=== PATIENT | female | born 1970 | race Caucasian/White ===

== ENCOUNTER 2021-03-27 09:11 | Outpatient (REF) | payer OTHER, SELFPAY ==
--- NOTE | ~2021-03-27 | US_ITS ---
EXAMINATION: PELVIC ULTRASOUND CLINICAL INFORMATION: Vaginal bleeding. Previous history of endometrial ablation. COMPARISON: Previous pelvic ultrasound December 2019 TECHNIQUE: Transabdominal and transvaginal pelvic ultrasound was performed. Transvaginal exam was performed for better visualization of the uterus and ovaries. FINDINGS: The uterus is anteverted and measures 8.4 x 4.6 x 5.3 cm. There are 3 uterine fibroids seen measuring 1.3 x 1 x 1.1 cm in the right posterior upper uterine body, 1.1 x 0.9 1.1 cm in the posterior upper uterine body and 1.5 x 1.3 x 1.5 cm in the anterior uterine body. There is a cystic area in or adjacent to the endometrium that measures 2.3 x 1.2 x 1.4 cm. This is increased from 1 cm on prior exam. The endometrium thickness is difficult to measure. The cervix is normal appearing. The ovaries are normal. The right ovary measures 2.6 x 1.5 x 2.8 cm. The left ovary measures 3.1 x 1.4 x 2.5 cm. There is no fluid in the pelvis. US/US pelvic and transvaginal IMPRESSION: Small uterine fibroids. Interval increase in cystic area in or adjacent to the endometrium now measuring 2.3 x 1.2 x 1.4 cm compared to 1 cm on prior exam December 2019. The endometrium thickness is difficult to measure. Normal-appearing ovaries.
== END 2021-03-27 09:12 | disposition home or self-care (01) ==
LOC: HO.HMGCX 09:11
PROVIDERS: Visit Provider Internal Medicine
DX: N93.9 Abnormal uterine and vaginal bleeding, unspecified (principal)
CPT/HCPCS: 76830; 76856

== ENCOUNTER 2021-04-17 12:34 | Outpatient (REF) | payer OTHER, SELFPAY ==
--- NOTE | ~2021-04-17 | MM_ITS ---
EXAMINATION: MM SCREENING DIGITAL BREAST TOMOSYNTHESIS, BILATERAL CLINICAL INFORMATION: Screening. Asymptomatic. The lifetime risk of breast cancer based on the Tyrer-Cuzick Model is 16%. COMPARISON: Mammography: December 08, 2019 and studies dating back to May 26, 2013 TECHNIQUE: Digital breast tomosynthesis is performed in both the craniocaudal and mediolateral oblique views along with computer-aided detection (CAD). Synthesized 2D images are generated from the tomosynthesis. FINDINGS: The breasts are heterogeneously dense, which may obscure small masses (ACR BI-RADS breast composition Category c). There are no significant masses, abnormal calcifications, or other abnormalities. MM/MM tomosynthesis screening BI IMPRESSION: There are no significant changes from prior study. ASSESSMENT: BI-RADS 1: Negative RECOMMENDATION: Routine annual mammography screening. This patient's information was entered into a reminder system with a target due date for their next mammogram.
== END 2021-04-17 12:35 | disposition home or self-care (01) ==
LOC: HO.MAMMO 12:34
PROVIDERS: Visit Provider Internal Medicine
DX: Z12.31 Encounter for screening mammogram for malignant neoplasm of breast (principal)
CPT/HCPCS: 77063; 77067

== ENCOUNTER 2021-09-23 10:09 | Outpatient (REF) | payer OTHER, SELFPAY ==
[2021-09-23 10:12] LABS: MANUAL DIFF FLAG NO
[2021-09-23 10:33] LABS: Basophils Absolute Auto 0.1 X10*3/uL (0.0-0.2); Basophils Percent Auto 0.5 % (0-2); Eosinophils Absolute Auto 0.1 X10*3/uL (0.0-0.4); Eosinophils Percent Auto 1.4 % (0-4); Hemoglobin 13.5 g/dl (12.0-16.0); Imm Gran Abs Auto 0.04 X10*3/uL (0.00-0.03); Imm Gran Pct Auto 0.4 % (0.0-0.4); Lymphocytes Absolute Auto 3.8 X10*3/uL (1.2-4.9); Lymphocytes Percent Auto 41.2 % (20-40); Mean Corpuscular HGB Conc 33.8 g/dl (31.0-35.0); Mean Corpuscular Hemoglobin 29.3 pg (27.0-33.0); Mean Platelet Volume 8.8 fL (9.4-12.3); Monocytes Absolute Auto 0.6 X10*3/uL (0.1-1.2); Monocytes Percent Auto 6.8 % (2-11); Neutrophils Absolute Auto 4.6 x10*3/uL (2.0-8.3); Neutrophils Percent Auto 49.7 % (45-73); Platelet Count 278 X10*3/uL (160-400); Red Cell Distribution Width 12.4 % (11.0-16.0); White Blood Count 9.3 X10*3/uL (4.8-10.8)
[2021-09-23 10:37] LABS: Appearance Urine HAZY; Color Urine YELLOW; Glucose Urine UA NEG (NEG); Leukocyte Esterase Urine NEG (NEG); Nitrite Urine NEG (NEG); Urine Blood NEG (NEG); Urine Ketones NEG (NEG); Urine Protein NEG (NEG-TRACE)
[2021-09-23 10:45] LABS: Alanine Aminotransferase 30 U/L (0-31); Albumin Level 4.3 g/dL (3.5-5.0); Alkaline Phosphatase 108 U/L (39-117); Anion Gap 12 (12-20); Aspartate Amino Transferase 20 U/L (5-31); Bilirubin Total 0.6 mg/dL (0.0-1.0); Blood Urea Nitrogen 12 mg/dL (9-16); Calcium 9.6 mg/dL (8.4-10.2); Carbon Dioxide 25 mmol/L (22-29); Chloride 105 mmol/L (96-108); Cholesterol 216 mg/dL; Estimated Glomerular Filt Rate > 60; Glucose Fasting 154 mg/dL (60-99); HDL Cholesterol 52 mg/dL; LDL Cholesterol Calculated 135 mg/dl; Sodium 138 mmol/L (135-145); Total Protein 6.7 g/dL (6.5-8.0); Triglycerides 149 mg/dL
[2021-09-23 11:08] LABS: Creatinine Urine 106.99 mg/dL
[2021-09-23 11:11] LABS: Estimated Average Glucose 137 mg/dL; Hemoglobin A1c % 6.4 %
== END 2021-09-23 10:10 | disposition home or self-care (01) ==
LOC: HO.LNP 10:09
PROVIDERS: Visit Provider Internal Medicine
DX: Z00.00 Encounter for general adult medical examination without abnormal findings (principal); R73.03 Prediabetes; R09.89 Other specified symptoms and signs involving the circulatory and respiratory systems; D72.829 Elevated white blood cell count, unspecified
CPT/HCPCS: 80053; 80061; 81003; 82043; 83036; 85025

== ENCOUNTER 2022-04-30 08:39 | Outpatient (REF) | payer OTHER, SELFPAY ==
--- NOTE | ~2022-04-30 | MM_ITS ---
EXAMINATION: MM SCREENING DIGITAL BREAST TOMOSYNTHESIS, BILATERAL CLINICAL INFORMATION: Screening. Asymptomatic. The lifetime risk of breast cancer based on the Tyrer-Cuzick Model is 12%. COMPARISON: Mammography: 04/17/2021, 12/08/2019, 09/15/2018 TECHNIQUE: Digital breast tomosynthesis is performed in both the craniocaudal and mediolateral oblique views along with computer-aided detection (CAD). Synthesized 2D images are generated from the tomosynthesis. Additional left exaggerated CC view is provided. FINDINGS: There are scattered areas of fibroglandular density (ACR BI-RADS breast composition Category b). There are no significant masses, abnormal calcifications, or other abnormalities. Parenchymal pattern is similar to prior studies. There is no developing density or architectural abnormality. Biopsy clip marker again noted posterior upper outer left breast. The axilla and skin contours are unremarkable. No significant changes. MM/MM tomosynthesis screening BI IMPRESSION: No mammographic evidence of malignancy. ASSESSMENT: BI-RADS 1: Negative RECOMMENDATION: Routine annual mammography screening. This patient's information was entered into a reminder system with a target due date for their next mammogram.
== END 2022-04-30 08:40 | disposition home or self-care (01) ==
LOC: HO.MAMMO 08:39
PROVIDERS: Visit Provider Internal Medicine
DX: Z12.31 Encounter for screening mammogram for malignant neoplasm of breast (principal)
CPT/HCPCS: 77063; 77067

== ENCOUNTER 2022-08-07 14:39 | Emergency (ER) | payer OTHER, SELFPAY ==
--- NOTE | ~2022-08-07 | CT_ITS ---
EXAMINATION: CT ELBOW WITHOUT CONTRAST, LEFT CLINICAL INFORMATION: Effusion on x-ray. Evaluate for fracture COMPARISON: Same day radiographs TECHNIQUE: A noncontrast CT of the left elbow is performed with sagittal and coronal reformats This CT examination was performed using dose optimization techniques as appropriate, variously including the following: *Automated exposure control *Adjustment of mA and/or kV according to patient size (this includes techniques or standardized protocols for targeted exams where dose is matched to indication/reason for exam; i.e. extremities or head) *Use of iterative reconstruction technique DLP: 140 FINDINGS: There is a moderate joint effusion. No loose body. No fracture or malalignment is demonstrated. There is the area of surface irregularity and relative hypodensity at the central aspect of the humerus, at the lateral aspect of the ulnohumeral joint as demonstrated on sagittal image 52 which is likely degenerative. There is mild degenerative spurring of the coronoid process with tiny marginal osteophytes. Small degenerative cyst at the lateral aspect of the capitellum. CT/CT elbow LT wo IV con IMPRESSION: Moderate joint effusion with no definite fracture. Degenerative findings as described.
--- NOTE | ~2022-08-07 | XR_ITS ---
EXAMINATION: XR ELBOW, LEFT CLINICAL INFORMATION: Pain with limited range of motion COMPARISON: None TECHNIQUE: AP, lateral, and oblique views of the left elbow. FINDINGS: There is subtle elevation of the anterior and posterior fat pad, suggestive of a joint effusion at the elbow. There is no fracture seen. Joint spaces are maintained. The soft tissues appear otherwise unremarkable. XR/XR elbow LT min 3V IMPRESSION: There is a small elbow joint effusion. No fracture is seen, but the presence of joint effusion raises suspicion for a cold fracture. CT could be considered if clinically indicated.
[2022-08-07 15:26] VITALS: BP 195/84; PULSE 65; RESP 18; TEMP 37.2; O2SAT 97; BMI 33.0
--- NOTE | 2022-08-07 17:15 | ED_ITS ---
HPI - Extremity Problem General Chief complaint: Extremity Injury, Upper Stated complaint: possible hairline fracture in L arm Time Seen by Provider: 08/07/22 16:43 Source: patient Mode of arrival: ambulatory Limitations: no limitations History of Present Illness HPI Narrative: Patient presents emergency department for evaluation of left elbow pain. Reports onset 1-2 weeks ago. Does not recall a specific trauma to the area, denies a fall. However she did started new job and she is frequently lifting heavy boxes and moving them. The pain is made worse with heavy lifting and extension of the elbow. Pain is localized all throughout the elbow but also just superior and to the distal humerus. Denies numbness or tingling to the extremity. Denies any cold sensation. Denies rash, redness. Does report that there is localized swelling laterally. As trial Tylenol and ibuprofen with some improvement, as well as the use of a compression sleeve which does help the pain some. Related Data Previous Rx's Medication Instructions Recorded naproxen 500 mg tablet 500 mg PO BID PRN pain #14 tabs 08/07/22 Allergies Allergy/AdvReac Type Severity Reaction Status Date / Time Codeine Phosphate Allergy Unknown vomiting Unverified 03/16/19 00:00 codeine [Codeine] AdvReac Unknown NAUSEA & Unverified 07/04/20 14:50 VOMITING Review of Systems Review of Systems: Musculoskeletal: Positive left elbow pain as noted in HPI All other review of systems are unremarkable Yes all other systems are reviewed and are negative REPLACED BY [facility] Past Medical History Attestation statement: The following information was validated with the patient. Source: old records reviewed Social History Social History Advance Directives: No Advance Directives Information Provided: Yes Physical Exam Vital Signs: Vital Signs: Last Vital Signs Temp 98.9 F 08/07/22 15:26 Pulse 56 08/07/22 19:30 Resp 18 08/07/22 15:26 BP 136/80 08/07/22 19:30 Pulse Ox 97 08/07/22 15:26 O2 Del Method 08/07/22 15:26 BMI result Body Mass Index 33.0 Vital signs have been reviewed as normal and appeared to be correct. Blood pressure normal.? Heart rate normal.? Respiration rate normal. Temperature normal.? Oxygen saturation normal. Appearance: Alert.?Oriented to person, place and time. No acute distress.?Normal affect. Eyes: Pupils equal, round and reactive to light.? ENT: Pharynx normal.?? Neck: Normal inspection.? Neck supple.?? CVS: Heart sounds normal. Normal heart rate and rhythm.? Pulses normal.?? Respiratory: No respiratory distress.? Lung sounds clear to auscultation bilaterally?? Abdomen: Soft and non-tender. Normoactive bowel sounds. Skin: Skin warm and dry.? Normal skin color.? Extremities: No lower extremity edema. Palpable 2+ radial pulse bilaterally. Left elbow with localized swelling laterally, has tenderness upon palpation, no erythema, warmth, rash, no evidence of bursitis, no obvious deformity. Neuro: Moves all extremities spontaneously. Sensation intact bilaterally. No focal neuro deficits. Ambulates with normal steady gait. Course Course Course Narrative: Patient is a 51-year-old female with a past medical history of glucose intolerance presenting to emergency department for evaluation of left elbow pain. She is overall well-appearing. There is mild localized swelling, otherwise no obvious deformities. Does not appear consistent with septic arthritis. XR reveals presence of a small joint effusion and raises suspicion for occult fracture, therefore will obtain CT for further evaluation of fracture. Patient noted to be hypertensive initially with blood pressure 195/84, asymptoimatic, denies any prior history of hypertension or elevated blood pressure readings, on repeat 136/80. Reevaluation(s) Reevaluation #1: CT reveals a moderate effusion without evidence of fracture and there are degenerative changes. Suspect her symptoms of pain are likely consistent to the effusion, discussed wound care for rest, ice, compression with Pritesh bandage, naproxen, avoidance of overuse. Reviewed worrisome signs and symptoms return back to emergency department for. All questions were answered, patient was discharged home in stable condition. Time: 20:28 MDM - Extremity (Nontraumatic) Medical Records Attestation: I reviewed the patient's medical records. Lab Data Attestation: I reviewed the patient's lab results. Imaging Data XR elbow: Radiologist's impression: XR/XR elbow LT min 3V IMPRESSION: There is a small elbow joint effusion. No fracture is seen, but the presence of joint effusion raises suspicion for a cold fracture. CT could be considered if clinically indicated. CT elbow: Radiologist's impression: CT/CT elbow LT wo IV con IMPRESSION: Moderate joint effusion with no definite fracture. Degenerative findings as described.? Discharge Plan Discharge Clinical Impression: Effusion of elbow joint, left Patient Disposition: Home, Self-Care Instructions: R.I.C.E. Treatment (ED), Swollen Joint (ED) Additional Instructions: X-ray and CT show no evidence of a fracture. Be sure to rest, apply ice/heat, Pritesh bandage for compression or compression sleeve, elevate the arm when possible. You have been given a new prescription for naproxen an anti-inflammatory to take twice daily. Take this with food to prevent stomach upset. Do not take additional [id number] ibuprofen/Motrin/Aleve/Advil/aspirin while taking this medication. You can take Tylenol 500 mg, 2 tablets (1,000mg) every 4-6 hours as needed for pain, but not to exceed 3 doses daily (3,000mg). Follow up with her primary care provider as needed. Return to emergency department any new or worsening symptoms or concerns. ? Prescriptions: New naproxen 500 mg tablet 500 mg PO BID PRN (Reason: pain) Qty: 14 0RF Interventions: ED Discharge Assessment Last Done: 08/07/22 20:52 Discharge Date/Time: 08/07/22 20:54
[2022-08-07 19:30] VITALS: BP 136/80; PULSE 56
== END 2022-08-07 20:54 | disposition home or self-care (01) ==
PROVIDERS: Emergency Provider Emergency Medicine; PCP Internal Medicine
DX: M25.422 Effusion, left elbow (principal); M25.522 Pain in left elbow
CPT/HCPCS: 73080; 73200; 99282; 99284

== ENCOUNTER 2022-10-08 11:03 | Outpatient (REF) | payer BC, MEDICAID, SELFPAY ==
[2022-10-08 11:06] LABS: MANUAL DIFF FLAG NO
[2022-10-08 11:44] LABS: Basophils Percent Auto 0.5 % (0-2); Eosinophils Absolute Auto 0.2 X10*3/uL (0.0-0.4); Eosinophils Percent Auto 2.5 % (0-4); Hematocrit 40.8 % (37.0-47.0); Hemoglobin 13.7 g/dl (12.0-16.0); Imm Gran Abs Auto 0.01 X10*3/uL (0.00-0.03); Imm Gran Pct Auto 0.2 % (0.0-0.4); Lymphocytes Absolute Auto 2.8 X10*3/uL (1.2-4.9); Lymphocytes Percent Auto 42.9 % (20-40); Mean Corpuscular HGB Conc 33.6 g/dl (31.0-35.0); Mean Corpuscular Hemoglobin 29.3 pg (27.0-33.0); Mean Corpuscular Volume 87.4 fL (80.0-98.0); Mean Platelet Volume 8.8 fL (9.4-12.3); Monocytes Absolute Auto 0.4 X10*3/uL (0.1-1.2); Monocytes Percent Auto 6.7 % (2-11); Neutrophils Absolute Auto 3.1 x10*3/uL (2.0-8.3); Neutrophils Percent Auto 47.2 % (45-73); Platelet Count 273 X10*3/uL (160-400); Red Blood Count 4.67 X10*6/uL (4.20-5.50); Red Cell Distribution Width 12.5 % (11.0-16.0); White Blood Count 6.5 X10*3/uL (4.8-10.8)
[2022-10-08 11:46] LABS: Appearance Urine Clear; Color Urine Yellow; Glucose Urine UA Negative (Negative); Leukocyte Esterase Urine Trace (Negative); Nitrite Urine Negative (Negative); Specific Gravity - Urine 1.015 (1.005-1.025); UMIC TRIGGER UA YES; Urine Blood Negative (Negative); Urine Ketones Negative (Negative); Urine Protein Negative (Neg-Trace)
[2022-10-08 11:50] LABS: Bacteria Urine Trace (None Seen); Hyaline Casts Urine 0-2 /LPF (0-2); RBC Urine 0-2 /HPF (0-2); WBC Urine 0-5 /HPF (0-5)
[2022-10-08 11:55] LABS: Estimated Average Glucose 131 mg/dL; Hemoglobin A1c % 6.2 %
[2022-10-08 12:00] LABS: Alanine Aminotransferase 22 U/L (0-31); Albumin Level 4.4 g/dL (3.5-5.0); Alkaline Phosphatase 119 U/L (39-117); Anion Gap 11 (12-20); Aspartate Amino Transferase 20 U/L (5-31); Bilirubin Total 0.5 mg/dL (0.0-1.0); Blood Urea Nitrogen 18 mg/dL (9-16); Calcium 9.5 mg/dL (8.4-10.2); Carbon Dioxide 26 mmol/L (22-29); Chloride 107 mmol/L (96-108); Cholesterol 207 mg/dL; Estimated Glomerular Filt Rate > 60; Glucose Fasting 150 mg/dL (60-99); HDL Cholesterol 51 mg/dL; LDL Cholesterol Calculated 127 mg/dl; Potassium 4.4 mmol/L (3.3-5.1); Sodium 140 mmol/L (135-145); Total Protein 6.8 g/dL (6.5-8.0); Triglycerides 146 mg/dL
[2022-10-08 12:54] LABS: Microalbum/Creatinine Ratio Ur 19.3 ug/mg cr
== END 2022-10-08 11:04 | disposition home or self-care (01) ==
LOC: HO.LNP 11:03
PROVIDERS: Visit Provider Internal Medicine
DX: Z00.00 Encounter for general adult medical examination without abnormal findings (principal); D72.829 Elevated white blood cell count, unspecified; E11.9 Type 2 diabetes mellitus without complications
CPT/HCPCS: 80053; 80061; 81001; 82043; 83036; 85025

== ENCOUNTER 2023-01-29 11:44 | Emergency (ER) | payer BC, MEDICAID, SELFPAY ==
--- NOTE | 2023-01-29 | ECG_ITS ---
Test Reason : CP Blood Pressure : / mmHG Vent. Rate : 071 BPM Atrial Rate : 071 BPM P-R Int : 148 ms QRS Dur : 098 ms QT Int : 398 ms P-R-T Axes : 056 062 045 degrees QTc Int : 432 ms Normal sinus rhythm Incomplete right bundle branch block Borderline ECG No previous ECGs available Referred By: Generic ED Physician Electronically Signed By:KARINA NICHOLSON MD
--- NOTE | ~2023-01-29 | CT_ITS ---
EXAMINATION: CT ANGIOGRAM OF THE CHEST WITH AND WITHOUT CONTRAST (CT PULMONARY ANGIOGRAM FOR PE) CLINICAL INFORMATION: Reason for Exam + dimer cp sob COMPARISON: No similar priors. TECHNIQUE: Prior to contrast administration, noncontrast localization images were obtained. Subsequently, multidetector volumetric imaging was performed from the thoracic inlet to below the diaphragms following the administration of 65 mL Omnipaque 350 intravenous contrast. No contrast reaction reported Sagittal, coronal, and MIP oblique sagittal reformatted images were obtained on the CT workstation, uploaded to PACS, and reviewed. This CT examination was performed using dose optimization techniques as appropriate, variously including the following: *Automated exposure control *Adjustment of mA and/or kV according to patient size (this includes techniques or standardized protocols for targeted exams where dose is matched to indication/reason for exam; i.e. extremities or head) *Use of iterative reconstruction technique Total exam dose-length product 280 mGy-cm FINDINGS: QUALITY OF STUDY/CONTRAST BOLUS: Satisfactory. PULMONARY ARTERIES: No pulmonary emboli. THORACIC AORTA: No aneurysm. LUNG: No focal consolidation or significant groundglass disease. Mild diffuse bronchial wall thickening. Bibasilar subsegmental atelectases. No suspicious pulmonary nodule or mass. PLEURA: No pleural effusion or pneumothorax. MEDIASTINUM: Normal heart size. No pericardial effusion. No hilar or mediastinal lymphadenopathy. No evidence of septal bowing or right heart strain. CORONARY ARTERY CALCIFICATION: Coronary artery calcifications are visualized. CHEST WALL/AXILLA: Nonspecific 1.3 cm nodule in the left breast with an associated calcification versus clip (5:18). Fairly symmetric subcentimeter short axis bilateral axillary lymph nodes, likely reactive. OSSEOUS STRUCTURES: No acute or suspicious osseous abnormality. UPPER ABDOMEN: Unremarkable. No reflux of contrast into the hepatic veins to suggest elevated right heart pressures. CT/CT angio chest PE protocol IMPRESSION: 1. No evidence of pulmonary embolism. 2. Mild diffuse bronchial wall thickening which is nonspecific and could be associated with asthma, bronchitis or reactive airways disease. 3. No focal consolidation or significant groundglass disease. 4. Nonspecific 1.3 cm nodule in the left breast with an associated calcification versus clip. If the patient is due, correlation with a mammogram is recommended. VTE: negative
--- NOTE | ~2023-01-29 | XR_ITS ---
EXAMINATION: XR CHEST CLINICAL INFORMATION: Shortness of breath COMPARISON: None available. TECHNIQUE: 2 views of the chest were obtained. FINDINGS: No significant abnormality is noted involving the heart, lungs, mediastinum, bony thorax or soft tissues. Mild degenerative changes of the spine. XR/XR chest 2V IMPRESSION: No evidence for acute disease in the chest.
[2023-01-29 12:08] LABS: MANUAL DIFF FLAG NO
[2023-01-29 12:09] VITALS: BP 151/103; PULSE 73; RESP 18; TEMP 36.1; O2SAT 97; BMI 34.2
[2023-01-29 12:10] LABS: Basophils Percent Auto 0.5 % (0-2); Eosinophils Absolute Auto 0.2 X10*3/uL (0.0-0.4); Eosinophils Percent Auto 3.5 % (0-4); Hematocrit 38.1 % (37.0-47.0); Hemoglobin 12.9 g/dl (12.0-16.0); Imm Gran Abs Auto 0.03 X10*3/uL (0.00-0.03); Imm Gran Pct Auto 0.5 % (0.0-0.4); Lymphocytes Absolute Auto 2.1 X10*3/uL (1.2-4.9); Lymphocytes Percent Auto 35.3 % (20-40); Mean Corpuscular HGB Conc 33.9 g/dl (31.0-35.0); Mean Corpuscular Hemoglobin 29.5 pg (27.0-33.0); Mean Platelet Volume 8.6 fL (9.4-12.3); Monocytes Absolute Auto 0.4 X10*3/uL (0.1-1.2); Monocytes Percent Auto 6.8 % (2-11); Neutrophils Absolute Auto 3.2 x10*3/uL (2.0-8.3); Neutrophils Percent Auto 53.4 % (45-73); Platelet Count 208 X10*3/uL (160-400); Red Blood Count 4.38 X10*6/uL (4.20-5.50)
--- NOTE | 2023-01-29 12:11 | ED_ITS ---
HPI - General Adult General Chief complaint: Chest Pain <SVITLANA Bueno - Last Filed: 01/29/23 12:49> Stated complaint: Chest Pain <SVITLANA Bueno - Last Filed: 01/29/23 12:49> Time Seen by Provider: 01/29/23 19:28 <SVITLANA Bueno - Last Filed: 01/29/23 12:49> Source: patient <SVTILANA Torres - Last Filed: 01/29/23 23:09> Mode of arrival: ambulatory <SVITLANA Torres - Last Filed: 01/29/23 23:09> Limitations: no limitations <SVITLANA Torres Last Filed: 01/29/23 23:09> History of Present Illness HPI narrative: This is a 52-year-old female former smoker presenting to the emergency department complaints of left-sided chest pain and pain under left breast particularly with deep breathing since this morning at approximately 07:00. Patient tells me she feels a sharp pain behind her left breast every time she takes a deep breath. Denies trauma to the area. No history of PE or DVT, not on anticoagulant, not on hormone replacement therapy, denies long travel, no history of hypercoagulable disorders. Denies nausea, vomiting, cough, headache, vision changes, dizziness, abdominal pain. <SVITLANA Torres - Last Filed: 01/29/23 23:09> Related Data Home medications: Previous Rx's Medication Instructions Recorded naproxen 500 mg tablet 500 mg PO BID PRN pain #14 tabs 08/07/22 albuterol sulfate 90 mcg/actuation 2 inh inhalation Q4-6H PRN 01/29/23 breath activated powder inhaler shortness of breath #1 ea ketorolac 10 mg tablet 10 mg PO TID PRN pain 5 days #15 01/29/23 tabs prednisone 20 mg tablet 40 mg PO DAILY 5 days #10 tabs 01/29/23 <SVITLANA Bueno - Last Filed: 01/29/23 12:49> Allergies/adverse reactions: Allergies Allergy/AdvReac Type Severity Reaction Status Date / Time Codeine Phosphate Allergy Unknown vomiting Unverified 03/16/19 00:00 codeine [Codeine] AdvReac Unknown NAUSEA & Unverified 07/04/20 14:50 VOMITING <SVITLANA Bueno - Last Filed: 01/29/23 12:49> Review of Systems Review of Systems: Constitutional : No Weight loss, No Fever, No Chills, No Fatigue, No Malaise ENT/Mouth : No sore throat, No Rhinorrhea Eyes: No Eye Pain, No Swelling, No Redness Cardiovascular : + Chest Pain, + SOB, No Dyspnea on Exertion, No Orthopnea, No Edema, No Palpitations Respiratory : No Cough, No Sputum, No Wheezing Gastrointestinal : No Nausea, No Vomiting, No Diarrhea, No Constipation, No abdominal Pain, No Hematochezia, No Melena Genitourinary : No Dysuria, No Urinary Frequency, No Hematuria, Musculoskeletal : No joint pain, No Myalgias, No Joint Swelling Skin : No Skin Lesions, No rash Neuro : No Weakness, No Numbness, No Dizziness, No Headache Psych : No Anxiety/Panic, No Depression All other systems reviewed and are negative <SVITLANA Torres - Last Filed: 01/29/23 23:09> Yes all other systems are reviewed and are negative <SVITLANA Torres - Last Filed: 01/29/23 23:09> [facility] Past Medical History Attestation statement: The following information was validated with the patient. <SVITLANA Torres - Last Filed: 01/29/23 23:09> Source: old records reviewed and nursing notes reviewed <SVITLANA Torres - Last Filed: 01/29/23 23:09> Social History Social History: Social History Advance Directives: Yes Advance Directives Information Provided: Yes Advance Directives on File: No <SVITLANA Bueno Last Filed: 01/29/23 12:49> Physical Exam ED Vital Signs: Vital Signs - 24 hr 01/29/23 12:09 01/29/23 15:14 01/29/23 19:33 Temperature 97.0 F 97.9 F Pulse Rate 73 69 68 Respiratory Rate 18 18 14 Blood Pressure 151/103 H 178/100 H 178/88 H Pulse Oximetry 97 97 99 Oxygen Delivery Method Room Air Room Air Room Air 01/29/23 21:24 Temperature 97.8 F Pulse Rate 59 Respiratory Rate 18 Blood Pressure 161/94 H Pulse Oximetry 99 Oxygen Delivery Method Room Air BMI result Body Mass Index 34.2 <SVITLANA Bueno - Last Filed: 01/29/23 12:49> Vital Signs - 24 hr 01/29/23 12:09 01/29/23 15:14 01/29/23 19:33 Temperature 97.0 F 97.9 F Pulse Rate 73 69 68 Respiratory Rate 18 18 14 Blood Pressure 151/103 H 178/100 H 178/88 H Pulse Oximetry 97 97 99 Oxygen Delivery Method Room Air Room Air Room Air 01/29/23 21:24 Temperature 97.8 F Pulse Rate 59 Respiratory Rate 18 Blood Pressure 161/94 H Pulse Oximetry 99 Oxygen Delivery Method Room Air BMI result Body Mass Index 34.2 vss <SVITLANA Torres - Last Filed: 01/29/23 23:09> Appearance: Alert.? Oriented X3.? No acute distress.? Head: Normocephalic, atraumatic, no step-offs or deformities Eyes: Pupils equal, round and reactive to light.? ENT: Pharynx normal.? Neck: Normal inspection.? Neck supple.? CVS: Normal heart rate and rhythm.? Pulses normal.? Respiratory: No respiratory distress.? Breath sounds normal.? Abdomen: Soft and nontender.? Skin: Skin warm and dry.? Normal skin color.? Normal skin turgor.? Extremities: No lower extremity edema.? No calf ttp, negative ollie b/l 5/5 strength to bilateral upper and lower extremities Neuro: Oriented X 3.? No motor deficit.? No sensory deficit. CN 2-12 intact <SVITLANA Torres - Last Filed: 01/29/23 23:09> Course Course Course Narrative: RME performed by Mary Cristobal PA-C. Patient is a 52 year old assigned female at presenting to the emergency department with chest pain started at 8AM today. Patient states she has a history of asthma, has used her inhaler this morning with minimal relieve. Patient states she has been experiencing a lot of stress at home. Labs ordered. Patient placed back in the waiting room pending room availability and results. <SVITLANA Bueno Last Filed: 01/29/23 12:49> Reevaluation(s) Reevaluation #1: CBC within normal limits. Chemistry with no acute findings requiring intervention, patient's troponin negative x2, EKG nonischemic. D-dimer was slightly elevated 356 CTA pending. Chest x-ray no evidence of acute disease in the chest. <SVITLANA Torres - Last Filed: 01/29/23 23:09> Time: 21:20 <SVITLANA Torres - Last Filed: 01/29/23 23:09> Reevaluation #2: Upon reevaluation patient reports pain is much improved. CT of the chest with no evidence of PE. Mild diffuse with bronchial wall thickening which is nonspecific and could be associated with asthma, bronchitis, more likely asthma, patient does not have a cough. No focal consolidation or ground-glass disease. Patient is noted to have a 1.3 cm nodule in the left breast with an associated calcification versus clip. Educated patient on this. Will have her follow-up with OBGYN and PCP. Will discharge home on prednisone, albuterol and Toradol. Educated patient on diagnosis and treatment plan, answered all question, patient verbalizes understanding. At this time patient will be discharged home, advised to return with new or worsening symptoms. Educated on worrisome signs and symptoms and when to return. At this time I feel comfortable discharge home. <SVITLANA Torres - Last Filed: 01/29/23 23:09> Time: 23:07 <SVITLANA Torres - Last Filed: 01/29/23 23:09> Medications Administered Discontinued Medications Generic Name Dose Route Start Last Admin Trade Name Armando PRN Reason Stop Dose Admin Iohexol 100 ml 01/29/23 21:07 01/29/23 21:08 Iohexol 350 Mg/Ml 100 Ml Infus..Btl IV 01/29/23 21:08 65 ml ONCE ONE Administration Ketorolac Tromethamine 30 mg 01/29/23 21:19 01/29/23 21:27 Ketorolac Tromethamine 15 Mg/Ml Vial IVPUSH 01/29/23 21:20 30 mg ONCE ONE Administration <SVITLANA Bueno - Last Filed: 01/29/23 12:49> Medications Administered Discontinued Medications Generic Name Dose Route Start Last Admin Trade Name Armando PRN Reason Stop Dose Admin Iohexol 100 ml 01/29/23 21:07 01/29/23 21:08 Iohexol 350 Mg/Ml 100 Ml Infus..Btl IV 01/29/23 21:08 65 ml ONCE ONE Administration Ketorolac Tromethamine 30 mg 01/29/23 21:19 01/29/23 21:27 Ketorolac Tromethamine 15 Mg/Ml Vial IVPUSH 01/29/23 21:20 30 mg ONCE ONE Administration <SVITLANA Torres - Last Filed: 01/29/23 23:09> Medical Decision Making Medical Decision Making MDM Narrative: 2100 52-year-old female presents with pleuritic chest pain since this morning. Physical exam benign. This could be musculoskeletal in nature versus PE. Unlikely ACS, CHF for pneumonia. No signs of flail chest or pneumothorax. Plan at this time labs, imaging, D-dimer, troponin EKG. Will give Toradol for discomfort <SVITLANA Torres - Last Filed: 01/29/23 23:09> Differential Diagnosis Differential Diagnoses: The differential diagnosis associated with the presentation includes <SVITLANA Torres - Last Filed: 01/29/23 23:09> This could be musculoskeletal in nature versus PE. Unlikely ACS, CHF for pneumonia. No signs of flail chest or pneumothorax. <SVITLANA Torres - Last Filed: 01/29/23 23:09> Lab Data MDM Lab Attestation statement: I reviewed the patient's lab results. <SVITLANA Torres - Last Filed: 01/29/23 23:09> Result Diagrams: 01/29/23 12:05 01/29/23 12:05 <SVITLANA Bueno - Last Filed: 01/29/23 12:49> Labs: Lab Results 01/29/23 01/29/23 01/29/23 Range/Units 12:05 12:05 12:05 WBC 6.0 (4.8-10.8) X10*3/uL RBC 4.38 (4.20-5.50) X10*6/uL Hgb 12.9 (12.0-16.0) g/dl Hct 38.1 (37.0-47.0) % MCV 87.0 (80.0-98.0) fL MCH 29.5 (27.0-33.0) pg MCHC 33.9 (31.0-35.0) g/dl RDW 12.0 (11.0-16.0) % Plt Count 208 (160-400) X10*3/uL MPV 8.6 L (9.4-12.3) fL Immature Gran % (Auto) 0.5 H (0.0-0.4) % Neut % (Auto) 53.4 (45-73) % Lymph % (Auto) 35.3 (20-40) % [place] % (Auto) 6.8 (2-11) % Eos % (Auto) 3.5 (0-4) % Baso % (Auto) 0.5 (0-2) % Lymph # (Auto) 2.1 (1.2-4.9) X10*3/uL [place] # (Auto) 0.4 (0.1-1.2) X10*3/uL Eos # (Auto) 0.2 (0.0-0.4) X10*3/uL Baso # (Auto) 0.0 (0.0-0.2) X10*3/uL Abs Immat Gran (auto) 0.03 (0.00-0.03) X10*3/uL Absolute Neuts (auto) 3.2 (2.0-8.3) x10*3/uL Absolute Nucleated RBC 0.000 (0.0-0.012) X10*3/uL Nucleated RBC % (auto) 0.0 (0.0-0.2) /100WBC D-Dimer High Sensitivty NG/ML Sodium 139 (135-145) mmol/L Potassium 4.0 (3.3-5.1) mmol/L Chloride 108 (96-108) mmol/L Carbon Dioxide 22 (22-29) mmol/L Anion Gap 13 (12-20) BUN 14 (9-16) mg/dL Creatinine 0.75 (0.5-1.4) mg/dL Estim Creat Clear Calc 88.6 Estimated GFR > 60 Random Glucose 292 H (60-115) mg/dL Calcium 9.3 (8.4-10.2) mg/dL Troponin I High Sens < 2.7 (<3.5-17.0) ng/L 01/29/23 01/29/23 Range/Units 19:42 19:42 WBC (4.8-10.8) X10*3/uL RBC (4.20-5.50) X10*6/uL Hgb (12.0-16.0) g/dl Hct (37.0-47.0) % MCV (80.0-98.0) fL MCH (27.0-33.0) pg MCHC (31.0-35.0) g/dl RDW (11.0-16.0) % Plt Count (160-400) X10*3/uL MPV (9.4-12.3) fL Immature Gran % (Auto) (0.0-0.4) % Neut % (Auto) (45-73) % Lymph % (Auto) (20-40) % [place] % (Auto) (2-11) % Eos % (Auto) (0-4) % Baso % (Auto) (0-2) % Lymph # (Auto) (1.2-4.9) X10*3/uL [place] # (Auto) (0.1-1.2) X10*3/uL Eos # (Auto) (0.0-0.4) X10*3/uL Baso # (Auto) (0.0-0.2) X10*3/uL Abs Immat Gran (auto) (0.00-0.03) X10*3/uL Absolute Neuts (auto) (2.0-8.3) x10*3/uL Absolute Nucleated RBC (0.0-0.012) X10*3/uL Nucleated RBC % (auto) (0.0-0.2) /100WBC D-Dimer High Sensitivty 356 NG/ML Sodium (135-145) mmol/L Potassium (3.3-5.1) mmol/L Chloride (96-108) mmol/L Carbon Dioxide (22-29) mmol/L Anion Gap (12-20) BUN (9-16) mg/dL Creatinine (0.5-1.4) mg/dL Estim Creat Clear Calc Estimated GFR Random Glucose (60-115) mg/dL Calcium (8.4-10.2) mg/dL Troponin I High Sens < 2.7 (<3.5-17.0) ng/L <SVITLANA Bueno - Last Filed: 01/29/23 12:49> Lab Results 01/29/23 01/29/23 01/29/23 Range/Units 12:05 12:05 12:05 WBC 6.0 (4.8-10.8) X10*3/uL RBC 4.38 (4.20-5.50) X10*6/uL Hgb 12.9 (12.0-16.0) g/dl Hct 38.1 (37.0-47.0) % MCV 87.0 (80.0-98.0) fL MCH 29.5 (27.0-33.0) pg MCHC 33.9 (31.0-35.0) g/dl RDW 12.0 (11.0-16.0) % Plt Count 208 (160-400) X10*3/uL MPV 8.6 L (9.4-12.3) fL Immature Gran % (Auto) 0.5 H (0.0-0.4) % Neut % (Auto) 53.4 (45-73) % Lymph % (Auto) 35.3 (20-40) % [place] % (Auto) 6.8 (2-11) % Eos % (Auto) 3.5 (0-4) % Baso % (Auto) 0.5 (0-2) % Lymph # (Auto) 2.1 (1.2-4.9) X10*3/uL [place] # (Auto) 0.4 (0.1-1.2) X10*3/uL Eos # (Auto) 0.2 (0.0-0.4) X10*3/uL Baso # (Auto) 0.0 (0.0-0.2) X10*3/uL Abs Immat Gran (auto) 0.03 (0.00-0.03) X10*3/uL Absolute Neuts (auto) 3.2 (2.0-8.3) x10*3/uL Absolute Nucleated RBC 0.000 (0.0-0.012) X10*3/uL Nucleated RBC % (auto) 0.0 (0.0-0.2) /100WBC D-Dimer High Sensitivty NG/ML Sodium 139 (135-145) mmol/L Potassium 4.0 (3.3-5.1) mmol/L Chloride 108 (96-108) mmol/L Carbon Dioxide 22 (22-29) mmol/L Anion Gap 13 (12-20) BUN 14 (9-16) mg/dL Creatinine 0.75 (0.5-1.4) mg/dL Estim Creat Clear Calc 88.6 Estimated GFR > 60 Random Glucose 292 H (60-115) mg/dL Calcium 9.3 (8.4-10.2) mg/dL Troponin I High Sens < 2.7 (<3.5-17.0) ng/L 01/29/23 01/29/23 Range/Units 19:42 19:42 WBC (4.8-10.8) X10*3/uL RBC (4.20-5.50) X10*6/uL Hgb (12.0-16.0) g/dl Hct (37.0-47.0) % MCV (80.0-98.0) fL MCH (27.0-33.0) pg MCHC (31.0-35.0) g/dl RDW (11.0-16.0) % Plt Count (160-400) X10*3/uL MPV (9.4-12.3) fL Immature Gran % (Auto) (0.0-0.4) % Neut % (Auto) (45-73) % Lymph % (Auto) (20-40) % [place] % (Auto) (2-11) % Eos % (Auto) (0-4) % Baso % (Auto) (0-2) % Lymph # (Auto) (1.2-4.9) X10*3/uL [place] # (Auto) (0.1-1.2) X10*3/uL Eos # (Auto) (0.0-0.4) X10*3/uL Baso # (Auto) (0.0-0.2) X10*3/uL Abs Immat Gran (auto) (0.00-0.03) X10*3/uL Absolute Neuts (auto) (2.0-8.3) x10*3/uL Absolute Nucleated RBC (0.0-0.012) X10*3/uL Nucleated RBC % (auto) (0.0-0.2) /100WBC D-Dimer High Sensitivty 356 NG/ML Sodium (135-145) mmol/L Potassium (3.3-5.1) mmol/L Chloride (96-108) mmol/L Carbon Dioxide (22-29) mmol/L Anion Gap (12-20) BUN (9-16) mg/dL Creatinine (0.5-1.4) mg/dL Estim Creat Clear Calc Estimated GFR Random Glucose (60-115) mg/dL Calcium (8.4-10.2) mg/dL Troponin I High Sens < 2.7 (<3.5-17.0) ng/L <SVITLANA Torres - Last Filed: 01/29/23 23:09> Independent Interpretation I performed an independent interpretation of an: Plain X-Ray (XR/XR chest 2V IMPRESSION: No evidence for acute disease in the chest.) and CT Scan (CT/CT angio chest PE protocol IMPRESSION: 1. No evidence of pulmonary embolism. 2. Mild diffuse bronchial wall thickening which is nonspecific and could be associated with asthma, bronchitis or reactive airways disease. 3. No focal consolidation or significant groundglass disease. 4. Nonspecific) <SVITLANA Torres - Last Filed: 01/29/23 23:09> Radiology Impression Discussion of test interpretation with radiology: I have reviewed the radiologist's reading. <SVITLANA Torres - Last Filed: 01/29/23 23:09> Core Measures AMI core measures followed: Yes <SVITLANA Torres - Last Filed: 01/29/23 23:09> Measure exclusions: not indicated <SVITLANA Torres - Last Filed: 01/29/23 23:09> Critical Care Time Critical Care Time Critical Care Time: No <SVITLANA Torres - Last Filed: 01/29/23 23:09> Discharge Plan Discharge Clinical Impression: Chest pain, pleuritic <SVITLANA Bueno - Last Filed: 01/29/23 12:49> Patient Disposition: Home, Self-Care <SVITLANA Bueno - Last Filed: 01/29/23 12:49> Instructions: Chest Pain (ED) <SVITLANA Bueno - Last Filed: 01/29/23 12:49> Additional Instructions: Take your medications as prescribed. If you were prescribed antibiotics today, it is important that you take your medication to their entirety, do not skip any doses, do not finish them early. Follow-up with your primary care provider this week. Follow-up with cardiology if pain persist and please follow up with with OBGYN and PCP for breast mass. Return to the emergency department with new or worsening symptoms. Such as fevers, chills, chest pain, shortness of breath, nausea, vomiting, dizziness, headache, vision changes, lethargy In case of emergency call 911 Toradol has been sent to your pharmacy, you tolerated this well in the department. Please take this as prescribed do not take this with ibuprofen, or other NSAIDs, do not mix this with alcohol. Side effects of this medication including increased risk for bleeding and possible kidney injury. CT/CT angio chest PE protocol IMPRESSION: 1.? No evidence of pulmonary embolism. 2.? Mild diffuse bronchial wall thickening which is nonspecific and could be associated with asthma, bronchitis or reactive airways disease. 3.? No focal consolidation or significant groundglass disease. 4.? Nonspecific 1.3 cm nodule in the left breast with an associated calcification versus clip. If the patient is due, correlation with a mammogram is recommended. ? VTE: negative <SVITLANA Bueno - Last Filed: 01/29/23 12:49> Prescriptions: New ketorolac 10 mg tablet 10 mg PO TID PRN (Reason: pain) 5 Days Qty: 15 0RF albuterol sulfate 90 mcg/actuation aerosol powdr breath activated 2 inh inhalation Q4-6H PRN (Reason: shortness of breath) Qty: 1 0RF prednisone 20 mg tablet 40 mg PO DAILY 5 Days Qty: 10 0RF No Action naproxen 500 mg tablet 500 mg PO BID PRN (Reason: pain) Qty: 14 0RF <SVITLANA Bueno - Last Filed: 01/29/23 12:49> Referrals: [facility] [place] [facility] [Provider Group] - 2 weeks [facility] [place] [facility] [place]Provider Group] - 2 days Ned Son MD [Primary Care Provider] - 2 days <SVITLANA Bueno - Last Filed: 01/29/23 12:49> Stand Alone Forms: Work/School Release <SVITLANA Bueno - Last Filed: 01/29/23 12:49>
[2023-01-29 12:37] LABS: Anion Gap 13 (12-20); Blood Urea Nitrogen 14 mg/dL (9-16); Calcium 9.3 mg/dL (8.4-10.2); Carbon Dioxide 22 mmol/L (22-29); Chloride 108 mmol/L (96-108); Creatinine Clr Calc Pharmacy 88.6; Estimated Glomerular Filt Rate > 60; Glucose Random 292 mg/dL (60-115); Sodium 139 mmol/L (135-145)
[2023-01-29 12:39] LABS: Troponin-I High Sensitivity < 2.7 ng/L (<3.5-17.0)
[2023-01-29 15:14] VITALS: BP 178/100; PULSE 69; RESP 18; O2SAT 97
[2023-01-29 19:33] VITALS: BP 178/88; PULSE 68; RESP 14; TEMP 36.6; O2SAT 99
[2023-01-29 20:03] LABS: D Dimer High Sensitivity 356 NG/ML
[2023-01-29 20:11] LABS: Troponin-I High Sensitivity < 2.7 ng/L (<3.5-17.0)
[2023-01-29] MEDS: iohexoL 350 MG/ML 100 ML INFUS..BTL IV (21:08)
[2023-01-29 21:24] VITALS: BP 161/94; PULSE 59; RESP 18; TEMP 36.6; O2SAT 99
[2023-01-29] MEDS: Ketorolac Tromethamine 15 MG/ML VIAL 30 MG IVPUSH (21:27)
[2023-01-29 23:19] VITALS: BP 147/92; PULSE 65; RESP 16; TEMP 36.6; O2SAT 97
== END 2023-01-29 23:24 | disposition home or self-care (01) ==
PROVIDERS: Physician Assistant; Emergency Provider Emergency Medicine; PCP Internal Medicine
DX: R07.89 Other chest pain (principal); Z79.899 Other long term (current) drug therapy
CPT/HCPCS: 36415; 71046; 71275; 80048; 84484; 85025; 85379; 93005; 96374; 99284; 99285; J1885; Q9967

== ENCOUNTER 2023-03-03 14:20 | Outpatient (REF) | payer BC, MEDICAID, SELFPAY ==
--- NOTE | ~2023-03-03 | MM_ITS ---
EXAMINATION: MM DIAGNOSTIC DIGITAL BREAST TOMOSYNTHESIS, BILATERAL CLINICAL INFORMATION: CTA chest notes nodule posterior upper outer left breast with central high attenuation focus. Family history breast cancer, mother. Due for yearly. TC score 15%. COMPARISON: CTA chest 01/29/2023. Multiple prior mammography exams including most recent 04/30/2022. TECHNIQUE: Digital breast tomosynthesis is performed in both the craniocaudal and mediolateral oblique views along with computer-aided detection (CAD). Synthesized 2D images are generated from the tomosynthesis. Additional spot left CC and magnification left ML views are obtained. FINDINGS: There are scattered areas of fibroglandular density (ACR BI-RADS breast composition Category b). There is a fibronodular parenchymal pattern similar to prior studies. There is no developing density or significant mass or architectural abnormality. The finding on CTA chest corresponds to biopsy-proven fibroadenoma with central biopsy clip marker in the posterior upper outer left breast, stable from prior exams. There are no abnormal calcifications. The axilla and skin contours are unremarkable. Results are discussed with the patient at time of visit. MM/MM tomosynthesis diagnostic BI IMPRESSION: -No mammographic evidence of malignancy. No significant changes from prior studies. -Finding left breast described on recent CTA chest corresponds to a stable known biopsy-proven fibroadenoma. ASSESSMENT: BI-RADS 2: Benign RECOMMENDATION: Routine annual mammography screening. This patient's information was entered into a reminder system with a target due date for their next mammogram.
== END 2023-03-03 14:21 | disposition home or self-care (01) ==
LOC: HO.MAMMO 14:20
PROVIDERS: PCP Internal Medicine; Visit Provider Internal Medicine
DX: N63.21 Unspecified lump in the left breast, upper outer quadrant (principal)
CPT/HCPCS: 77062; 77066

== ENCOUNTER 2023-06-09 10:49 | Outpatient (AMB) | payer BC, MEDICAID, SELFPAY ==
[2023-06-09 11:13] VITALS: BP 128/72; PULSE 83; TEMP 36.2; O2SAT 97; BMI 33.7
--- NOTE | 2023-06-09 11:13 | AM.OFFWIN_ITS ---
Intake Vital Signs 06/09/23 11:13 Height 5 ft 2 in Weight 184 lb BMI 33.7 BP 128/72 Blood Pressure Location Rt brachial Position Sitting Pulse 83 Pulse Source Pulse Oximeter Temp 97.2 F Temp Source Temporal Artery Scan Pulse Oximetry (%) 97 Oxygen Delivery Method Room Air Intake Visit Reasons: EP T-spot (ok by Dr. Medina) Intake Note: Pt is here requesting a TB blood work. Patient Tobacco Use Status: Never used Tobacco Allergies codeine [Codeine] Adverse Reaction (Unknown, Unverified 06/11/23 17:15) Nausea and Vomiting Medication List - Last Reconciled 06/11/23 by Jose Daniel Shultz MD albuterol sulfate 90 mcg/actuation 2 inhalations inhalation Q4-6H PRN ketorolac 10 mg PO TID PRN 5 days naproxen 500 mg PO BID PRN prednisone 40 mg (2 x 20 mg) PO DAILY 5 days Do you need a note to return to daycare/school/sports/work: No HPI EP T-spot (ok by Dr. Medina) HPI Details 52-year-old female presents to the office requesting an employment physical. As part of the physical she needs a T spot test. [facility] Social History Patient Tobacco Use Status: Never used Tobacco Physical Exam Vital Signs: Last Vital Signs Temp 97.2 F 06/09/23 11:13 Pulse 83 06/09/23 11:13 BP 128/72 06/09/23 11:13 Pulse Ox 97 06/09/23 11:13 Oxygen Delivery Method Room Air 06/09/23 11:13 BMI result Body Mass Index 33.7 Const General: cooperative and healthy appearing Nutritional Appearance: well nourished Orientation/consciousness: patient oriented x3 Limitations: no limitations HEENT Head: Yes normal to inspection Eyes General: appearance normal, both eyes and all related structures Neck Neck: Yes normal visual inspection Chest Chest palpation & inspection: normal palpation of entire chest wall Resp Effort & Inspection: normal respiratory effort Neuro General: patient oriented x3 Assessment & Plan Assessment & Plan (1) Physical exam, pre-employment: Code(s): Z02.1 - Encounter for pre-employment examination Plan Once the results are available, the necessary form will be filled out. Orders: Orders T Spot TB 06/09/23 Z02.0 - Encounter for examination for admission to educational institution Coding Level of Care Code Sports/Work/School Physical Diagnoses Physical exam, pre-employment Z02.1
== END 2023-06-09 11:56 | disposition home or self-care (01) ==
PROVIDERS: PCP Internal Medicine; Visit Provider Internal Medicine
DX: Z02.1 Encounter for pre-employment examination (principal)
CPT/HCPCS: 99080

== ENCOUNTER 2023-06-09 11:39 | Outpatient (REF) | payer BC, MEDICAID, SELFPAY ==
[2023-06-12 00:13] LABS: TS Negative Control Passed; TS Panel A 0; TS Panel B 0; TS Positive Control Passed; TSpotTB Negative (Negative)
== END 2023-06-09 11:40 | disposition home or self-care (01) ==
LOC: HO.HMGCLDS 11:39
PROVIDERS: Visit Provider Internal Medicine
DX: Z02.0 Encounter for examination for admission to educational institution (principal)
CPT/HCPCS: 36415; 86481

== ENCOUNTER 2023-10-15 11:38 | Outpatient (REF) | payer BC, MEDICAID, SELFPAY ==
[2023-10-15 11:42] LABS: MANUAL DIFF FLAG NO
[2023-10-15 11:55] LABS: Appearance Urine Clear; Basophils Absolute Auto 0.1 X10*3/uL (0.0-0.2); Basophils Percent Auto 0.7 % (0-2); Color Urine Yellow; Eosinophils Absolute Auto 0.1 X10*3/uL (0.0-0.4); Eosinophils Percent Auto 1.8 % (0-4); Glucose Urine UA 500 mg/dL (Negative); Hematocrit 41.5 % (37.0-47.0); Hemoglobin 14.2 g/dl (12.0-16.0); Imm Gran Abs Auto 0.02 X10*3/uL (0.00-0.03); Imm Gran Pct Auto 0.3 % (0.0-0.4); Leukocyte Esterase Urine Negative (Negative); Lymphocytes Absolute Auto 3.4 X10*3/uL (1.2-4.9); Mean Corpuscular HGB Conc 34.2 g/dl (31.0-35.0); Mean Corpuscular Hemoglobin 29.3 pg (27.0-33.0); Mean Corpuscular Volume 85.7 fL (80.0-98.0); Mean Platelet Volume 8.6 fL (9.4-12.3); Monocytes Absolute Auto 0.5 X10*3/uL (0.1-1.2); Monocytes Percent Auto 6.9 % (2-11); Neutrophils Absolute Auto 3.1 x10*3/uL (2.0-8.3); Neutrophils Percent Auto 43.3 % (45-73); Nitrite Urine Negative (Negative); Platelet Count 256 X10*3/uL (160-400); Red Blood Count 4.84 X10*6/uL (4.20-5.50); Red Cell Distribution Width 11.9 % (11.0-16.0); Urine Blood Negative (Negative); Urine Ketones Negative (Negative); Urine Protein Negative (Neg-Trace); White Blood Count 7.2 X10*3/uL (4.8-10.8)
[2023-10-15 11:57] LABS: Bacteria Urine None Seen (None Seen); Hyaline Casts Urine 0-2 /LPF (0-2); WBC Urine 0-5 /HPF (0-5)
[2023-10-15 12:06] LABS: Estimated Average Glucose 217 mg/dL; Hemoglobin A1c % 9.2 % (<6.0)
[2023-10-15 12:44] LABS: Creatinine Urine 79.69 mg/dL; Microalbum/Creatinine Ratio Ur 27.6 ug/mg cr (<30)
[2023-10-15 12:45] LABS: Alanine Aminotransferase 16 U/L (0-31); Albumin Level 4.1 g/dL (3.5-5.0); Alkaline Phosphatase 106 U/L (39-117); Anion Gap 10 (12-20); Aspartate Amino Transferase 15 U/L (5-31); Bilirubin Total 0.5 mg/dL (0.0-1.0); Blood Urea Nitrogen 16 mg/dL (9-16); Carbon Dioxide 25 mmol/L (22-29); Chloride 104 mmol/L (96-108); Cholesterol 206 mg/dL (<200); Estimated Glomerular Filt Rate > 60; Glucose Random 254 mg/dL (60-115); HDL Cholesterol 52 mg/dL (>40); LDL Cholesterol Calculated 119 mg/dL (<100); Potassium 3.9 mmol/L (3.3-5.1); Sodium 135 mmol/L (135-145); Total Protein 6.7 g/dL (6.5-8.0); Triglycerides 178 mg/dL (<150)
== END 2023-10-15 11:39 | disposition home or self-care (01) ==
LOC: HO.LNP 11:38
PROVIDERS: Visit Provider Internal Medicine
DX: Z20.822 Contact with and (suspected) exposure to COVID-19 (principal); D72.829 Elevated white blood cell count, unspecified; E11.9 Type 2 diabetes mellitus without complications
CPT/HCPCS: 80053; 80061; 81001; 82043; 82570; 83036; 85025

== ENCOUNTER 2023-10-22 15:38 | Outpatient (REF) | payer BC, MEDICAID, SELFPAY | END 2023-10-22 15:39 | disposition home or self-care (01) | LOC: HO.LNP 15:38 | PROVIDERS: Visit Provider Internal Medicine | DX: D72.820 Lymphocytosis (symptomatic) (principal); R31.29 Other microscopic hematuria | CPT/HCPCS: 81001; 85025 ==

== ENCOUNTER 2023-11-25 10:51 | Outpatient (REF) | payer BC, MEDICAID, SELFPAY ==
[2023-11-25 11:52] LABS: Appearance Urine Clear; Color Urine Yellow; Glucose Urine UA >=1000 mg/dL (Negative); Leukocyte Esterase Urine Negative (Negative); Nitrite Urine Negative (Negative); Specific Gravity - Urine 1.025 (1.005-1.025); UMIC TRIGGER UACC YES; Urine Blood Negative (Negative); Urine Ketones Negative (Negative); Urine Protein Negative (Neg-Trace)
[2023-11-25 11:59] LABS: Bacteria Urine None Seen (None Seen); Hyaline Casts Urine 0-2 /LPF (0-2); RBC Urine 0-2 /HPF (0-2); Squamous Epithelial Cell Urine 0-2 /HPF (0-2); WBC Urine 0-5 /HPF (0-5)
== END 2023-11-25 10:52 | disposition home or self-care (01) ==
LOC: HO.LNP 10:51
PROVIDERS: Visit Provider Internal Medicine
DX: R31.9 Hematuria, unspecified (principal)
CPT/HCPCS: 81001

== ENCOUNTER 2024-04-28 08:53 | Day surgery (SDC) | payer BC, SELFPAY ==
[2024-04-26 12:12] VITALS: BMI 32.1
--- NOTE | 2024-04-28 09:07 | HO.ANESPROP2 ---
[facility] Active Problems Active Problems: All Active Problems (Updated 04/26/24 @ 12:15 by Olamide Crain RN) Physical exam, pre-employment (Acute) Past Medical History Medical History (Updated 04/26/24 @ 12:15 by Olamide Crain RN) Diabetes Family History Family history of problems with anesthesia: No Surgical History Surgical History (Updated 04/26/24 @ 12:11 by Olamide Crain RN) History of endometrial ablation Hx of tubal ligation H/O colonoscopy History of Problems with Anesthesia: No Social History Social History (Updated 04/26/24 @ 12:11 by Olamide Crain RN) Household Members: Spouse Patient Tobacco Use Status: Never used Tobacco Advance Directives: No Advance Directives Information Provided: Yes Meds Allergies Allergy/AdvReac Type Severity Reaction Status Date / Time codeine [Codeine] AdvReac Unknown Nausea and Unverified 06/11/23 17:15 Vomiting Home Medications ?Medication ?Instructions ?Recorded ?Confirmed ?Last Taken ?Type ibuprofen 800 mg tablet 800 mg PO TID PRN Pain 04/26/24 04/26/24 Unknown History metformin 500 mg tablet 500 mg PO BID 04/26/24 04/26/24 Unknown History Exam Height,Weight and Vital Signs: Height 5 ft 3 in Weight 82.1 kg Airway Mallampati Class: III TM Dist: >3cm Neck ROM: Full Assessment and Plan Assessment Anesthesia Assessment: Anesthesia Plan Discussed and Chart Reviewed Final Anesthetic Review Family History of Problems with Anesthesia: No History of Problems with Anesthesia: No NPO: Yes ASA Class: II Final Preanesthetic Review: No Changes in Pt Med Stat, Meds/Allgs Chart Reviewed, Consent Obtained/Reviewed and Anes Risks/Benef Reviewed Patient Risk: Intermediate Procedure Risk: Low Anesthetic Plan Anesthetic Plan: TIVA Disposition: Standard PACU
[2024-04-28 09:10] VITALS: BP 141/86; PULSE 66; RESP 20; TEMP 36.4; O2SAT 98
[2024-04-28 09:21] VITALS: BMI 33.2
[2024-04-28 09:34] LABS: Glucose, Whole Blood 146 mg/dL (60-115)
[2024-04-28] MEDS: Lactated Ringers 1,000 ML 50 ML IVCONT (09:36)
--- NOTE | 2024-04-28 10:35 | MHC.SHP ---
Pre-Procedural Eval Section A - 24 Hr Update-Section A only Date of Service: 04/28/24 Section B - Complete if H&P > 30 days Chief Complaint: screening Details of Present Illness: see H&P no changes Relevant Family History (Specify if Yes): No Relevant Social History: None Present Medications: see Short Stay Collaborative assessment Medical History: No relevant PMH History of Previous Operations: No relevant previous surgery Allergies: Allergies Allergy/AdvReac Type Severity Reaction Status Date / Time codeine [Codeine] AdvReac Unknown Nausea and Verified 04/28/24 09:30 Vomiting Review of Systems Sugical H&P ROS: Negative: Constitution, Cardiovascular, Respiratory, Neurological, Psychiatric, Hem-Onc, Allergic/Immunologic, Gastrointestinal, Genitourinary, Musculoskeletal, Integumentary, Endocrine and Eyes/Ears/Nose/Throat Exam Surgical H&P Exam: Normal: HEENT, Normal: Heart, Normal: Lungs, Normal: Extremities, Normal: Abdomen, Normal: Skin and Normal: Neurological Plan Diagnosis/Plan: Unchanged I have reviewed the history and physical and performed a pertinent physical examination on my patient. No changes have occurred unless specified. Time Spent With Patient Time: Total time managing care of this patient today ____ minutes.
[2024-04-28 11:11] VITALS: BP 116/72; PULSE 65; RESP 16; TEMP 36.9; O2SAT 98
[2024-04-28 11:26] VITALS: BP 132/84; PULSE 71; RESP 16; TEMP 36.9; O2SAT 100
[2024-04-28 11:41] VITALS: BP 144/87; PULSE 55; RESP 14; TEMP 36.9; O2SAT 100
--- NOTE | 2024-04-28 12:00 | OP_ITS ---
DATE OF SERVICE: 04/28/2024 SURGEON: Constantin Myers MD INDICATIONS: Colon cancer screening and prior history of adenomatous colon polyps. PREOPERATIVE DIAGNOSIS: POSTOPERATIVE DIAGNOSIS: PROCEDURE PERFORMED: Colonoscopy to the terminal ilium. ESTIMATED BLOOD LOSS: COMPLICATIONS: ANESTHESIA: Monitored anesthesia care. ASSISTANTS: SPECIMENS: DESCRIPTION OF PROCEDURE: A history and physical was performed. The risks and benefits of the procedure were explained to the patient and informed consent was obtained. The patient was placed in the left lateral decubitus position. A digital rectal exam was performed and was found to be normal. The Olympus pediatric video colonoscope was introduced into the rectum and advanced to the cecum. The cecum was identified by transillumination, palpation, and identification of ileocecal valve. Examination was performed. The scope was removed. She tolerated the procedure well and was returned to the recovery area in stable condition. FINDINGS: The terminal ileum was examined and appeared normal. The visualized colonic mucosa was normal. The quality of the prep was good. No polyps were identified. Retroflexed examination showed small internal hemorrhoids. IMPRESSION: Normal colonoscopy. RECOMMENDATION: 1. Follow up as needed. 2. Repeat colonoscopy is recommended in 10 years for average-risk individuals. MD JULIO Brown/IGNACIO / [id number]
== END 2024-04-28 12:30 | disposition home or self-care (01) ==
PROVIDERS: PCP Internal Medicine; Visit Provider Internal Medicine Gastroenterology
PROC: 0DJD8ZZ Inspection of Lower Intestinal Tract, Via Natural or Artificial Opening Endoscopic (ICD-10-PCS; CPT 45378; principal; 2024-04-28 10:50)
DX: Z12.11 Encounter for screening for malignant neoplasm of colon (principal); Z86.010 Personal history of colon polyps; E11.9 Type 2 diabetes mellitus without complications; Z79.84 Long term (current) use of oral hypoglycemic drugs; Z79.899 Other long term (current) drug therapy
CPT/HCPCS: 45378; 82947; J2704

== ENCOUNTER 2024-06-23 12:31 | Outpatient (AMB) | payer BC, SELFPAY ==
[2024-06-23 12:35] VITALS: BP 188/100; PULSE 58; TEMP 36.6; O2SAT 98; BMI 31.0
--- NOTE | 2024-06-23 12:35 | AM.OFFWIN_ITS ---
Intake Vital Signs 06/23/24 12:35 06/23/24 13:16 06/23/24 13:29 Height 5 ft 3 in Weight 175 lb BMI 31.0 BP 188/100 H 170/100 H 150/90 H Blood Pressure Location Rt brachial Lt brachial Lt brachial Position Sitting Pulse 58 Pulse Source Pulse Oximeter Temp 97.9 F Temp Source Oral Pulse Oximetry (%) 98 Oxygen Delivery Method Room Air Intake Visit Reasons: EP sinus, ear pain Intake Note: pt c/o sinus and ear pain and congestion . Started 2 weeks ago Patient Tobacco Use Status: Former Tobacco user Allergies codeine [Codeine] Adverse Reaction (Unknown, Verified 06/23/24 12:49) Nausea and Vomiting Do you need a note to return to daycare/school/sports/work: No HPI HPI Comments History of Present Illness Details Patient is a 53-year-old female complaining of 2 weeks of cough, head congestion, ear pain, nose congestion, postnasal drip. She denies any fevers, shortness breath or chest pain. She also endorses a headache. She states she does not take any medication for her blood pressure and that every time she gets sick, her blood pressure gets higher but it always comes back down when she starts feeling better. She states she has been taking Zicam nasal spray with some relief in her nasal congestion but she states it is hard to fall asleep at night with all they congestion. She has been taking olju-lwy-rxoqyyp medications like Mucinex as well with minimal relief in her symptoms. She states her primary care doctor is on vacation for the next week so she came here today. [facility] Medical History (Updated 06/23/24 @ 13:34 by Rebeca Alvarez PA-C) Diabetes Surgical History (Updated 04/26/24 @ 12:11 by Olamide Crain RN) History of endometrial ablation Hx of tubal ligation H/O colonoscopy Social History (Updated 04/26/24 @ 12:11 by Olamide Crain RN) Household Members: Spouse Patient Tobacco Use Status: Former Tobacco user Review of Systems Const All systems reviewed & are unremarkable except as noted in HPI and below Physical Exam Vital Signs: Last Vital Signs Temp 97.9 F 06/23/24 12:35 Pulse 58 06/23/24 12:35 BP 188/100 H 06/23/24 12:35 Pulse Ox 98 06/23/24 12:35 Oxygen Delivery Method Room Air 06/23/24 12:35 BMI result Body Mass Index 31.0 Const General: cooperative, healthy appearing, comfortable and no acute distress Orientation/consciousness: patient oriented x3 Limitations: no limitations HEENT Head: Yes normal to inspection Ears: hearing grossly normal bilaterally, external ears normal, TM normal on the right and TM abnormal dull, wth effusion and erythematous General nose exam: Normal external nose present, Normal nares present and No nasal discharge present Face and sinus: Yes normal facial exam and Yes sinus tenderness Mouth: Normal oral and palatal mucosa present and moist mucous membranes Throat: Yes tonsils normal, Yes uvula midline and Yes posterior oropharynx abnormal (Erythema) Eyes General: appearance normal, both eyes and all related structures Neck Neck: Yes normal visual inspection Resp Effort & Inspection: normal respiratory effort, able to speak in complete sentences, Actively coughing, no respiratory distress, not tachypneic, no tripod positioning and no use of accessory muscles Auscultation: clear to auscultation bilaterally Cardio Rate: regular rate Rhythm: regular rhythm Heart sounds: normal S1 and S2 Skin General skin exam: no rashes or lesions noted Neuro General: patient oriented x3 Extrem General: Yes normal to inspection and Yes no clubbing, cyanosis or edema Assessment & Plan Assessment & Plan (1) Otitis media: Code(s): H66.90 - Otitis media, unspecified, unspecified ear Qualifiers: Otitis media type: mucoid Chronicity: acute Laterality: left Qualified Code(s): H65.192 - Other acute nonsuppurative otitis media, left ear Plan: Sent Augmentin for both issues, recommended using Flonase and an allergy pill as well. (2) Sinusitis: Code(s): J32.9 - Chronic sinusitis, unspecified Qualifiers: Sinusitis location: frontal Chronicity: acute Recurrence: non- recurrent Qualified Code(s): J01.10 - Acute frontal sinusitis, unspecified (3) Elevated blood pressure reading without diagnosis of hypertension: Code(s): R03.0 - Elevated blood-pressure reading, without diagnosis of hypertension Plan: As patient settled in with the appointment, her blood pressure came down quite a bit, question if it is white coat syndrome. Recommended she check her blood pressure over the next week and follow up with her PCP when he returns from vacation to ensure resolution of her hypertensive readings. Educated patient on when to go to the emergency department, if she becomes symptomatic with headaches and dizziness. Plan see above Medications: New amoxicillin-pot clavulanate 875-125 mg 1 tab PO Q12H 10 tabs 0RF Coding Level of Care Code New Pt Level 3 (18294) Diagnoses Acute mucoid otitis media of left ear H65.192 Otitis media type: mucoid Chronicity: acute Laterality: left Acute non-recurrent frontal sinusitis J01.10 Sinusitis location: frontal Chronicity: acute Recurrence: non-recurrent Elevated blood pressure reading without diagnosis of hypertension R03.0
[2024-06-23 13:16] VITALS: BP 170/100
[2024-06-23 13:29] VITALS: BP 150/90
== END 2024-06-23 13:30 | disposition home or self-care (01) ==
PROVIDERS: PCP Internal Medicine; Visit Provider Physician Assistant
DX: H65.192 Other acute nonsuppurative otitis media, left ear (principal); J01.10 Acute frontal sinusitis, unspecified; R03.0 Elevated blood-pressure reading, without diagnosis of hypertension
CPT/HCPCS: 99203

== ENCOUNTER 2024-08-04 09:47 | Outpatient (REF) | payer BC, SELFPAY ==
--- NOTE | ~2024-08-04 | MM_ITS ---
EXAMINATION: MM SCREENING DIGITAL BREAST TOMOSYNTHESIS, BILATERAL CLINICAL INFORMATION: Screening. Asymptomatic. COMPARISON: Mammography: Comparison is made with available priors TECHNIQUE: Digital breast mammography with tomosynthesis is performed in both the craniocaudal and mediolateral oblique views along with computer-aided detection (CAD). FINDINGS: The breasts are heterogeneously dense, which may obscure small masses (ACR BI-RADS breast composition Category c). Left marker clip. There are no significant masses, abnormal calcifications, or other abnormalities. MM/MM tomosynthesis screening BI IMPRESSION: No mammographic evidence of malignancy. ASSESSMENT: BI-RADS BI-RADS 2 - Benign Findings RECOMMENDATION: Routine annual mammography screening. 1 year F/U This examination should not preclude the clinical evaluation of a suspicious palpable abnormality. This patient's information was entered into a reminder system with a target due date for their next mammogram. Electronically signed by: Susy Love DO 08/15/2024 02:46 PM EDT
== END 2024-08-04 09:48 | disposition home or self-care (01) ==
LOC: HO.MAMMO 09:47
PROVIDERS: Visit Provider Internal Medicine
DX: Z12.31 Encounter for screening mammogram for malignant neoplasm of breast (principal)
CPT/HCPCS: 77063; 77067

== ENCOUNTER → 2024-08-04 10:00 | Outpatient (BNV) | payer BC, SELFPAY | PROVIDERS: Visit Provider Internal Medicine | DX: Z12.31 Encounter for screening mammogram for malignant neoplasm of breast (principal) | CPT/HCPCS: 77063; 77067 ==

== ENCOUNTER 2024-10-20 10:53 | Outpatient (REF) | payer BC, SELFPAY ==
[2024-10-20 10:56] LABS: MANUAL DIFF FLAG NO
[2024-10-20 11:23] LABS: Basophils Percent Auto 0.6 % (0-2); Eosinophils Absolute Auto 0.2 X10*3/uL (0.0-0.4); Eosinophils Percent Auto 2.3 % (0-4); Hemoglobin 13.4 g/dl (12.0-16.0); Imm Gran Abs Auto 0.02 X10*3/uL (0.00-0.03); Imm Gran Pct Auto 0.3 % (0.0-0.4); Lymphocytes Absolute Auto 2.9 X10*3/uL (1.2-4.9); Lymphocytes Percent Auto 40.4 % (20-40); Mean Corpuscular HGB Conc 32.7 g/dl (31.0-35.0); Mean Corpuscular Hemoglobin 29.3 pg (27.0-33.0); Mean Corpuscular Volume 89.7 fL (80.0-98.0); Mean Platelet Volume 8.7 fL (9.4-12.3); Monocytes Absolute Auto 0.5 X10*3/uL (0.1-1.2); Monocytes Percent Auto 7.5 % (2-11); Neutrophils Absolute Auto 3.5 x10*3/uL (2.0-8.3); Neutrophils Percent Auto 48.9 % (45-73); Platelet Count 251 X10*3/uL (160-400); Red Blood Count 4.57 X10*6/uL (4.20-5.50); Red Cell Distribution Width 12.4 % (11.0-16.0); White Blood Count 7.1 X10*3/uL (4.8-10.8)
[2024-10-20 11:24] LABS: Appearance Urine Clear; Color Urine Yellow; Glucose Urine UA Negative (Negative); Leukocyte Esterase Urine Small (1+) (Negative); Nitrite Urine Negative (Negative); Specific Gravity - Urine 1.015 (1.005-1.025); UMIC TRIGGER UACC YES; Urine Blood Negative (Negative); Urine Ketones Negative (Negative); Urine Protein Negative (Neg-Trace)
[2024-10-20 11:40] LABS: Bacteria Urine None Seen (None Seen); Hyaline Casts Urine 0-2 /LPF (0-2); RBC Urine 0-2 /HPF (0-2); UACC Culture Trigger YES; WBC Urine 0-5 /HPF (0-5)
[2024-10-20 11:55] LABS: Creatinine Urine 47.42 mg/dL; Estimated Average Glucose 134 mg/dL; Hemoglobin A1c % 6.3 % (<6.0); Microalbum/Creatinine Ratio Ur 42.1 ug/mg cr (<30); Total Hemoglobin (HGBA1C) 3504.0887 umol/L
[2024-10-20 11:58] LABS: Albumin Level 4.1 g/dL (3.5-5.0); Alkaline Phosphatase 97 U/L (39-117); Anion Gap 10 (12-20); Aspartate Amino Transferase 32 U/L (5-31); Bilirubin Total 0.3 mg/dL (0.0-1.0); Blood Urea Nitrogen 21 mg/dL (9-16); Calcium 9.1 mg/dL (8.4-10.2); Carbon Dioxide 27 mmol/L (22-29); Chloride 105 mmol/L (96-108); Cholesterol 193 mg/dL (<200); Estimated Glomerular Filt Rate > 60; Glucose Fasting 149 mg/dL (60-99); HDL Cholesterol 55 mg/dL (>40); LDL Cholesterol Calculated 122 mg/dL (<100); Potassium 4.2 mmol/L (3.3-5.1); Sodium 138 mmol/L (135-145); Total Protein 6.7 g/dL (6.5-8.0); Triglycerides 83 mg/dL (<150)
[2024-10-20 12:30] LABS: Alanine Aminotransferase 38 U/L (0-31)
--- OUTSIDE RECORDS SUMMARY | 2024-10-20 12:40 | XMS_ITS ---
Author Organization Ned Sno MD Address [address] [place], [place] [phone] Care Team Providers Care Salesperson Meats Name Role Phone Ned Son Primary Care Provider RESULTS Component Value Reference Range Notes Comprehensive [place]. Panel Fa st (Not yet reviewed by provider) Interpretation: Performing Lab:[facility], [address] [place] [phone] Notes/Report: Sodium 138 135-145 mmol/L Potassium 4.2 [...] Alkaline Phosphatase 97 39-117 U/L Lipid Panel (Not yet reviewe d by provider) Interpretation: Performing Lab:[facility], [address] [place] [phone] Notes/Report: Triglycerides 83 <150 mg/dL Slight Lipemia. [...] low results in patients with liver disease. Complete Blood Count Auto Di ff Reviewed date:10/20/2024 12:28:17 PM Interpretation: Performing Lab:[facility], [address] [place] [phone] Notes/Report: White Blood Count 7.1 4.8-10.8 X10*3/uL [...] X10*3/uL NRBC Abs Auto 0.000 0.0-0.012 X10*3/uL Microalbumin, Random Reviewed date:10/20/2024 12:19:30 PM Interpretation: Performing Lab:[address] [phone] Notes/Report: Creatinine Urine 47.42 Microalbumin Urine 20.0 Microalbum/Creatinine Ratio Ur 42.1 <30 ug/mg cr Albumin/Creatinine Ratio Reference Ranges: Normal: < 30 ug/mg creatinine Microalbuminuria: 30 - 300 ug/mg creatinine Clinical Albuminuria: > 300 ug/mg creatinine Hemoglobin A1c Reviewed date:10/20/2024 12:20:05 PM Interpretation: Performing Lab:[address] [phone] Notes/Report: Hemoglobin A1c % 6.3 <6.0 % [...] average glucose, using the formula of the V8R-Hxtszvu Average Glucose study (ADAG), Diabetes Care, Vol.31,#8, May. 2007 UA ClnCatch+Micro w/rflx Cul t Reviewed date:10/20/2024 12:31:15 PM Interpretation: Performing Lab:[facility], [address] [place] [phone] Notes/Report: Urine, Clean Catch Color Urine Yellow Appearance Urine Clear PH 7.0 5.0-9.0 Glucose Urine UA Negative Negative mg/dL Urine Blood Negative Negative Specific [place] - Urine 1.015 1.005-1.025 Urine Protein Negative [...] Location Date Provider Diagnosis Ned Son MD [address] [place] [address] Drive [address] [place], [place] [phone] 10/20/2024 Ned Son Blood tests for routine general physical examination Z00.00 ; Leukocytosis, unspecified type D72.829 and Type 2 diabetes mellitus without complication, without long-term current use of insulin E11.9 ASSESSMENTS Encounter Date Diagnosis Assessment Notes Treatment Notes Treatment Clinical Notes 10/20/2024 Blood tests for routine general physical examination (ICD-10 - Z00.00) 10/20/2024 Leukocytosis, unspecified type (ICD-10 - D72.829) 10/20/2024 Type 2 diabetes mellitus without complication, without long-term current use of insulin (ICD-10 - E11.9) PLAN OF TREATMENT Pending Test Test Name Order Date Comprehensive [place]. Panel Fast Lipid Panel 10/20/2024 Next Appt Details Provider Name:Ned byrnes, 10/24/2024 02:30:00 PM, [address] [place] [address] Drive, [address], [place], [place], [phone],
--- OUTSIDE RECORDS SUMMARY | 2024-10-20 12:40 | XMS_ITS | Patient Health Record ---
Author Organization Ned Son MD Address [address] [place], [place] [id number] Care Team Providers Care Quality Analyst/Technical Writer Name Role Phone Ned oSn Primary Care Provider ALLERGIES Allergen (clinical drug ingredient) Drug/Non Drug Allergy documented on EMR Reaction Allergy Type Onset Date Status Codeine Phosphate vomiting Drug Allergy Active RESULTS Component Value Reference Range Notes Hemoglobin A1c Reviewed date:02/03/2024 03:22:08 PM Interpretation: Performing Lab: Notes/Report: Value Hemoglobin A1c 10.1 Glucose, finger stick Reviewed date:10/22/2023 02:29:28 PM Interpretation: Performing Lab: Notes/Report: Value 304 Complete Blood Count Auto Di ff Reviewed date:10/23/2023 05:23:26 PM Interpretation: Performing Lab:[facility], [address] [place] [phone] Notes/Report: White Blood Count 7.3 4.8-10.8 X10*3/uL Red Blood Count 4.90 4.20-5.50 X10*6/uL Hemoglobin 14.5 12.0-16.0 g/dl Hematocrit 41.7 37.0-47.0 % Mean Corpuscular Volume 85.1 80.0-98.0 fL Mean Corpuscular Hemoglobin 29.6 27.0-33.0 pg Mean Corpuscular HGB Conc 34.8 31.0-35.0 g/dl Red Cell Distribution Width 12.2 11.0-16.0 % Platelet Count 252 160-400 X10*3/uL Mean Platelet Volume 8.4 9.4-12.3 fL Neutrophils Percent Auto 52.1 45-73 % Imm Gran Pct Auto 0.4 0.0-0.4 % Lymphocytes Percent Auto 39.3 20-40 % Monocytes Percent Auto 6.3 2-11 % Eosinophils Percent Auto 1.4 0-4 % Basophils Percent Auto 0.5 0-2 % NRBC Pct Auto 0.0 0.0-0.2 /100WBC Neutrophils Absolute Auto 3.8 2.0-8.3 x10*3/u L Imm Gran Abs Auto 0.03 0.00-0.03 X10*3/uL Lymphocytes Absolute Auto 2.9 1.2-4.9 X10*3/u L Monocytes Absolute Auto 0.5 0.1-1.2 X10*3/uL Eosinophils Absolute Auto 0.1 0.0-0.4 X10*3/u L Basophils Absolute Auto 0.0 0.0-0.2 X10*3/uL NRBC Abs Auto 0.000 0.0-0.012 X10*3/uL Urinalysis and Microscopic Reviewed date:10/25/2023 06:57:50 AM Interpretation: Performing Lab:[address] [phone] Notes/Report: Color Urine Yellow Appearance Urine Clear PH 5.5 5.0-9.0 Glucose Urine UA >=1000 Negative mg/dL Urine Blood Negative Negative Specific [place] - Urine >= 1.030 1.005-1.025 Urine Protein Negative Neg-Trace mg/dL Urine Ketones Negative Negative mg/dL Nitrite Urine Negative Negative Leukocyte Esterase Urine Negative Negative RBC Urine 3-5 0-2 /HPF WBC Urine 6-10 0-5 /HPF Squamous Epithelial Cell Urine 3-5 0-2 /HPF Bacteria Urine Trace None Seen Hyaline Casts Urine 0-2 0-2 /LPF UA ClnCatch+Micro w/rflx Cul t Reviewed date:11/25/2023 12:36:21 PM Interpretation: Performing Lab:[address] [phone] Notes/Report: [id number] Urine, Clean Catch Color Urine Yellow Appearance Urine Clear PH 6.0 5.0-9.0 Glucose Urine UA >=1000 Negative mg/dL Urine Blood Negative Negative Specific [place] - Urine 1.025 1.005-1.025 Urine Protein Negative Neg-Trace mg/dL Urine Ketones Negative Negative mg/dL Nitrite Urine Negative Negative Leukocyte Esterase Urine Negative Negative RBC Urine 0-2 0-2 /HPF WBC Urine 0-5 0-5 /HPF Squamous Epithelial Cell Urine 0-2 0-2 /HPF Bacteria Urine None Seen None Seen Hyaline Casts Urine 0-2 0-2 /LPF Glucose, finger stick Reviewed date:02/03/2024 03:15:14 PM Interpretation: Performing Lab: Notes/Report: Value 158 Glucose, finger stick Reviewed date:03/09/2024 02:54:39 PM Interpretation: Performing Lab: Notes/Report: Value 108 Glucose, Whole Blood Reviewed date:04/28/2024 12:20:36 PM Interpretation: Performing Lab:[facility], [address] [place] [phone] Notes/Report: Glucose, Whole Blood 146 60-115 mg/dL METER # : [id number] MM tomosynthesis screening B I Reviewed date:08/18/2024 12:53:33 PM Interpretation: Performing Lab: Notes/Report: [facility] [address] [place] [address] Mammography Report Signed with Chaz Patient: Cady Hernandez MR#: [id number] 8 : 1970 Acct:[id number] Age/Sex: 53 / F ADM Date: 08/04/24 Loc: HOAleaMAMMO Attending Dr: Ned Son MD Ordering Physician: Ned Son MD Results: 2Be nign Findings Date of Service: 08/04/24 Follow Up: 1 Year From Orig inal Mammogram Procedure(s): MM tomosynthesis screening BI Accession Number(s): [id number] cc: Ned Son MD ADDENDUM ADDENDUM #1 ADDENDUM: Due to a software issue related to the original report, this case has been reviewed again and the original findings and recommendations remain the same. OVERALL ASSESSMENT: BI-RADS 2 - Benign Findings RECOMMENDATION: 1 year F/U Electronically signed by: Susy Love DO 08/18/2024 10:51 AM EDT RP Addendum Dictated By: Susy Love DO Addendum Signed By: <Electronically signed by Susy Love DO in OV> 08/18/24 1051 Addendum Cosigned By: DD/ TD/TT: 08/04/24 EXAMINATION: MM SCREENING DIGITAL BREAST TOMOSYNTHESIS, BILATERAL CLINICAL INFORMATION: Screening. Asymptomatic. COMPARISON: Mammography: Comparison is made with available priors TECHNIQUE: Digital breast mammography with tomosynthesis is performed in both the craniocaudal and mediolateral oblique views along with computer-aided detection (CAD). FINDINGS: The breasts are heterogeneously dense, which may obscure small masses (ACR BI-RADS breast composition Category c). Left marker clip. There are no significant masses, abnormal calcifications, or other abnormalities. MM/MM tomosynthesis screening BI IMPRESSION: No mammographic evidence of malignancy. ASSESSMENT: BI-RADS BI-RADS 2 - Benign Findings RECOMMENDATION: Routine annual mammography screening. 1 year F/U This examination should not preclude the clinical evaluation of a suspicious palpable abnormality. This patient's information was entered into a reminder system with a target due date for their next mammogram. Electronically signed by: Susy Love DO 08/15/2024 02:46 PM EDT RP Dictated By: Susy Love DO Signed By: <Electronically signed by Susy Love DO in OV> 08/15/24 1446 DD/ 2 TD/TT: 08/04/241005 Custodial Laborer: Karolina [place]. Panel Fa st (Not yet reviewed by provider) Interpretation: Performing Lab:[facility], [address] [place] [phone] Notes/Report: Sodium 138 135-145 mmol/L Potassium 4.2 [...] yet reviewe d by provider) Interpretation: Performing Lab:[facility], [address] [place] [phone] Notes/Report: Triglycerides 83 <150 mg/dL Slight Lipemia. [...] ff Reviewed date:10/20/2024 12:28:17 PM Interpretation: Performing Lab:[facility], [address] [place] [phone] Notes/Report: White Blood Count 7.1 4.8-10.8 X10*3/uL [...] Random Reviewed date:10/20/2024 12:19:30 PM Interpretation: Performing Lab:[address] [phone] Notes/Report: Creatinine Urine 47.42 Microalbumin Urine 20.0 Microalbum/Creatinine Ratio Ur 42.1 <30 ug/mg cr Albumin/Creatinine Ratio Reference Ranges: Normal: < 30 ug/mg creatinine Microalbuminuria: 30 - 300 ug/mg creatinine Clinical Albuminuria: > 300 ug/mg creatinine Hemoglobin A1c Reviewed date:10/20/2024 12:20:05 PM Interpretation: Performing Lab:[address] [phone] Notes/Report: Hemoglobin A1c % 6.3 <6.0 % [...] average glucose, using the formula of the Y4B-Qhzykyy Average Glucose study (ADAG), Diabetes Care, Vol.31,#8, May. 2007 UA ClnCatch+Micro w/rflx Cul t Reviewed date:10/20/2024 12:31:15 PM Interpretation: Performing Lab:[facility], [address] [place] [phone] Notes/Report: Urine, Clean Catch Color Urine Yellow Appearance Urine Clear PH 7.0 5.0-9.0 Glucose Urine UA Negative Negative mg/dL Urine Blood Negative Negative Specific [place] - Urine 1.015 1.005-1.025 Urine Protein Negative Neg-Trace mg/dL Urine Ketones Negative Negative mg/dL Nitrite Urine Negative Negative Leukocyte Esterase Urine Small (1+) Negative RBC Urine 0-2 0-2 /HPF WBC Urine 0-5 0-5 /HPF Squamous Epithelial Cell Urine 3-5 0-2 /HPF Bacteria Urine None Seen None Seen Hyaline Casts Urine 0-2 0-2 /LPF REASON FOR REFERRAL Reason needs colonoscopy Diagnosis 1 Colon cancer screeni (Z12.11) Referral Organization Ned Son MD Referring Provider First Name Ned Referring Provider Last Name Adelaida Referring Provider Speciality Internal M edicine Referred Provider Ke Beltran Referred Provider Specialty Gastroentero logy General Notes Coco Simpson 02:59:39 PM EST > send GI Notes of colonoscopy in 2019 op note and bx Calvin Annette 11/16/2023 08:05:32 AM EST >request faxed for records appt pending due to waiting for report from [facility] GI Calvin Annette 11/18/2023 10:43:47 AM EST > op note and path report scanned in chart and faxed to Calvin Aguiar Annette 11/26/2023 09:05:12 AM EST > patient is aware of appt., Yamilex Hagen 04/06/2024 09:04:14 AM EDT > OFFICE NOTE RECD Referral Priority Routine Referral Appointment Date 03/16/2024 MEDICATIONS Medication SIG (Take, Route, Frequency, Duration) Notes Start Date End Date Status Ibuprofen 800 MG TAKE 1 TABLET BY KENNETH TH THREE TIMES A DAY WITH FOOD OR MILK NEEDED FOR 30 DAYS for 30 Active Ventolin HFA 108 (90 Base) MCG/ACT 2 puffs as needed Inhalation every 4 hrs for 30 days Not-Taking Albuterol Sulfate HFA 108 (90 Base) MCG/ACT 1 puff as needed Inhalation every 4 hrs 11/06/2021 Active Clobetasol Propionate E 0.05 % as directed Externally twice for 30 days 12/12/2012 Not-Taking metFORMIN HCl 500 MG TAKE 1 TABLET BY MO UTH TWICE A DAY WITH A MEAL FOR 30 DAYS for 30 Active Tylenol 8 Hour 650 MG 2 tablets as neede d Orally every 8 hrs Not-Taking Mucinex 600 MG 1 tablet as needed Orally every 12 hrs Not-Taking IMMUNIZATIONS Vaccine Route Administration Date Status Comme nts Flu Vaccine IM Intramuscular 09/11/2014 Administered SARS-COV-2 Pfizer Unknown 02/11/2021 Administered SARS-COV-2 Pfizer Unknown 03/04/2021 Administered Flu Vaccine Unknown 07/16/2015 Refused Flu Vaccine Unknown 07/09/2016 Refused Fluarix Quadrivalent Unknown 08/03/2017 Refused Fluarix Quadrivalent Unknown 02/23/2019 Refused TDaP Unknown 02/23/2019 Refused Fluarix Quadrivalent Unknown 08/31/2019 Refused Fluarix Quadrivalent Unknown 09/05/2020 Refused Fluarix Quadrivalent Unknown 07/04/2021 Refused Fluarix Quadrivalent Unknown 10/02/2021 Refused SOCIAL HISTORY Tobacco Use: Social History Observation Description Date Details (start date - stop date) Former Smoker NA - NA Sex Assigned At : Social History Observation Description Sex Assigned At Unknown Tobacco Use/Smoking Question Answer Notes Patient is a former smoker How long has it been since y ou last smoked? > 10 years Additional Findings: Tobacco Non-User Fo rmer smoker, currently using no form of tobacco Alcohol Screen Question Answer Notes Did you have a drink contain ing alcohol in the past year? Yes How often did you have a dri nk containing alcohol in the past year? Monthly or less (1 point) How many drinks did you have on a typical day when you were drinking in the past year? 1 or 2 drinks (0 point) How often did you have 6 or more drinks on one occasion in the past year? Never (0 point) Points 1 Interpretation Negative PROBLEMS Problem Type ICD Code Onset Dates Problem Status W/U Status Risk SNOMED Code Notes Problem Lymphocytosis (D72.820) Active confirmed 92374484 Problem Tubular adenoma (D36.9) Active confirmed 224418105 Problem Diverticulitis (K57.92) Active confirmed 940353333 Problem Diverticulitis of large intestine without perforation or abscess without bleeding (K57.32) Active confirmed 1880573 Problem Arthritis (M19.90) Active confirmed 372 3001 Problem Intrinsic eczema (L20.84) Active confirmed 39240226 Problem Eczema, unspecified type (L30.9) Active confirmed 82469879 Problem Leukocytosis, unspecified type (D72.829) Active confirmed 382627020 Problem Dysthymia (F34.1) Active confirmed 7866 7006 Problem Vaginal bleeding (N93.9) Active confirmed 237841573 Problem Abnormal mammogram of right breast (R92.8) Active confirmed 302086143 Problem Peptic ulcer disease (K27.9) Active confirmed 26769709 Problem Type 2 diabetes mellitus without complication, without long-term current use of insulin (E11.9) Active confirmed 088680792 Problem Mild intermittent asthmatic bronchitis with acute exacerbation (J45.21) Active confirmed 093741296 VITAL SIGNS Blood pressure diastolic 74 mm Hg 03/09/2024 swathi ght is down 3 pounds since 02-03-24 Height 62.5 in 03/09/2024 weight is down 3 pounds since 02-03-24 Blood pressure systolic 118 mm Hg 03/09/2024 weig ht is down 3 pounds since 02-03-24 Weight 181 lbs 03/09/2024 weight is down 3 pounds since 02-03-24 BMI 32.57 kg/m2 03/09/2024 weight is down 3 pounds since 02-03-24 PROCEDURES Procedure Date Ordered Date Performed Result Body Sit e Colonoscopy, Screening 04/28/2024 04/28/2024 repeat 10 yea rs Encounters Encounter Location Date Provider Diagnosis Ned Son MD [address] [place] [address] [place] [id number] 10/22/2023 Ned Son Type 2 diabetes mellitus without complication, without long-term current use of insulin E11.9 ; Annual physical exam Z00.00 ; Microscopic hematuria R31.29 ; Lymphocytosis D72.820 and Depression screening Z13.31 Ned Son MD [address] [place] [id number] 10/20/2024 Ned Son Blood tests for routine general physical examination Z00.00 ; Leukocytosis, unspecified type D72.829 and Type 2 diabetes mellitus without complication, without long-term current use of insulin E11.9 Ned Son MD [address] [place] [id number] 11/25/2023 Ned Son Hematuria, unspecified type R31.9 Ned Son MD [address] [place] [id number] 02/03/2024 Ned Son Type 2 diabetes mellitus without complication, without long-term current use of insulin E11.9 ; Skin lesion of left leg L98.9 and Onychomycosis B35.1 Ned Son MD [address] [place] [id number] 03/09/2024 Ned Son Type 2 diabetes mellitus without complication, without long-term current use of insulin E11.9 and Skin lesion L98.9 Ned Son MD [address] [id number] 04/27/2024 Ned Son MD [address] [id number] 11/25/2023 Ned Son Type 2 diabetes mellitus without complication, without long-term current use of insulin E11.9 Ned Son MD [address] [place] [id number] 02/07/2024 Ned Son Type 2 diabetes mellitus without complication, without long-term current use of insulin E11.9 Ned Son MD [address] [place] [id number] 03/21/2024 Ned Son MD [address] [place] [address] [id number] 06/23/2024 Ned Son ASSESSMENTS Encounter Date Diagnosis Assessment Notes Treatment Notes Treatment Clinical Notes 10/22/2023 Annual physical exam (ICD-10 - Z00.00) labs reviewed and discussed with patient 10/22/2023 Type 2 diabetes mellitus without complication, without long-term current use of insulin (ICD-10 - E11.9) to get on diet and decrease carbs 10/20/2024 Blood tests for routine general physical examination (ICD-10 - Z00.00) 11/25/2023 Hematuria, unspecified type (ICD-10 - R31.9) 02/03/2024 Type 2 diabetes mellitus without complication, without long-term current use of insulin (ICD-10 - E11.9) has only been able to tolerate metformin once a day due to diarrhea. is going to get a meter 02/03/2024 Skin lesion of left leg (ICD-10 - L98.9) appears like a tag that has necrosed not not seem like a mole. will observe for amonth 03/09/2024 Skin lesion (ICD-10 - L98.9) left leg, referral to dermatology/ am concerned that it could be a melanoma/ patient will be calling [facility] to set up her appt. 03/09/2024 Type 2 diabetes mellitus without complication, without long-term current use of insulin (ICD-10 - E11.9) 11/25/2023 Type 2 diabetes mellitus without complication, without long-term current use of insulin (ICD-10 - E11.9) 02/07/2024 Type 2 diabetes mellitus without complication, without long-term current use of insulin (ICD-10 - E11.9) 10/22/2023 Microscopic hematuri a (ICD-10 - R31.29) will continue to monitor 10/20/2024 Leukocytosis, unspecified type (ICD-10 - D72.829) 02/03/2024 Onychomycosis (ICD-1 0 - B35.1) she is going to try otc preps 10/22/2023 Lymphocytosis (ICD-1 0 - D72.820) stable, will continue to monitor 10/20/2024 Type 2 diabetes mellitus without complication, without long-term current use of insulin (ICD-10 - E11.9) 10/22/2023 Depression screening (ICD-10 - Z13.31) negative screen PLAN OF TREATMENT Pending Test Test Name Order Date Electrocardiogram (EKG) 08/25/2018 Electrocardiogram (EKG) 09/07/2019 MAMMOGRAM DIGITAL BILATERAL DIAGNO 02/05 US BREAST LEFT 02/05/2023 Comprehensive [place]. Panel Fast Lipid Panel 10/20/2024 Next Appt Details Provider Name:Ned Neisha Teri ier, 10/24/2024 02:30:00 PM, [address] [facility], [address], [place], [place], [phone], Insurance Providers Payer Name Payer Address Payer Phone Subscriber Number Group Number Insured Name Patient Relationship to Insured Coverage Start Date Coverage End Date [employer] [address] [place], [place] [phone] [id number] Cady Hernandez Self - patient is the insured [facility] [address] [place] [address] [phone] [id number] Cady Hernandez Self - patient is the insured MEDICAL (GENERAL) HISTORY Medical History History ICD Code Colonoscopy with Dr Bai repeat in 5 years (2023)04/28/24 repeat 10 years
--- OUTSIDE RECORDS SUMMARY | 2024-10-20 12:40 | XMS_ITS ---
Author Organization Ned Son MD Address [address] [place], [place] [phone] Care Team Providers Care Test Operator Name Role Phone Ned Son Primary Care Provider REASON FOR VISIT ? sinus infection Encounters Encounter Location Date Provider Diagnosis Ned Son MD [address] [place], [place] [id number] 06/23/2024 Ned Son PLAN OF TREATMENT Next Appt Details Provider Name:Ned byrnes, 10/24/2024 02:30:00 PM, [address] [place] [address], [address], [place], [place], [phone],
--- OUTSIDE RECORDS SUMMARY | 2024-10-20 12:40 | XMS_ITS ---
Author Organization Nde Son MD Address [address] [place], [place] [phone] Care Team Providers Care Camera Person Name Role Phone Ned Son Primary Care Provider [phone] REASON FOR VISIT 6 weeks Encounters Encounter Location Date Provider Diagnosis Ned Son MD [address] [place], [place] [phone] 04/27/2024 Ned Son PLAN OF TREATMENT Next Appt Details Provider Name:Ned byrnes, 10/24/2024 02:30:00 PM, [address] [place] [address], [address], [place], [place], [phone],
--- OUTSIDE RECORDS SUMMARY | 2024-10-20 12:41 | XMS_ITS ---
Author Organization [facility] Address [address] [place] [address] Care Team Providers Care Retail Specialist Name Role Phone Ned Son MD Primary Care Provider Chalo Myers Jr, Constantin Marcano REASON FOR VISIT colon cancer screening PROBLEMS Problem Type ICD Code Onset Dates Problem Status W/U Status Risk SNOMED Code Notes Problem Personal history of colonic polyps (Z86.010) Active confirmed History of polyp of colon (situation) (389414448) Encounters Encounter Location Date Provider Diagnosis [facility] Outpatient [address] [place] [id number] 04/28/2024 Constantin Myers Jr Encounter for screening colonoscopy Z12.11 and Personal history of colonic polyps Z86.010 ASSESSMENTS Encounter Date Diagnosis Assessment Notes Treatment Notes Treatment Clinical Notes 04/28/2024 Encounter for screening colonoscopy (ICD-10 - Z12.11) 04/28/2024 Personal history of colonic polyps (ICD-10 - Z86.010) PLAN OF TREATMENT No Information
--- OUTSIDE RECORDS SUMMARY | 2024-10-20 12:41 | XMS_ITS | Patient Health Record ---
Author Organization [facility] Address [address] [place] [address] Care Team Providers Care Bottle Gauger Name Role Phone Adelaida MARKS, Ned Primary Care Provider Chalo Myers Jr, Constantin Unavailable [phone] Ke Beltran Unavailable [phone] ALLERGIES Allergen (clinical drug ingredient) Drug/Non Drug Allergy documented on EMR Reaction Allergy Type Onset Date Status codeine Codeine Unknown Drug Allergy Active RESULTS Component Value Reference Range Notes Glucose, Whole Blood Reviewed date:04/28/2024 02:16:48 PM Interpretation: Performing Lab:[facility], [address] [place] [id number] Notes/Report: Glucose, Whole Blood 146 60-115 mg/dL METER # : [id number] REASON FOR REFERRAL No Information MEDICATIONS Medication SIG (Take, Route, Frequency, Duration) Notes Start Date End Date Status metFORMIN HCl 500 MG TAKE 1 TABLET BY [facility] TWICE A DAY WITH A MEAL FOR 30 DAYS Oral for 30 Active GameAccount NetworkTouch Ultra Test - In Vitro for 25 Active Ibuprofen 800 MG TAKE 1 TABLET BY [facility] THREE TIMES A DAY WITH FOOD OR MILK NEEDED FOR 30 DAYS Oral for 30 Active Albuterol Sulfate HFA 108 (90 Base) MCG/ACT Inhalation for 17 Activ e MiraLax (colon prep) 17 GM/SCOOP mixed with Gatorade or Crystal Light Orally begin at 5:00 p.m. the day before the procedure for 1 day 03/16/2024 Active IMMUNIZATIONS Vaccine Route Administration Date Status Comme nts Influenza Unknown 03/16/2024 Refused SOCIAL HISTORY Tobacco Use: Social History Observation Description Date Details (start date - stop date) Never Smoker NA - NA Sex Assigned At : Social History Observation Description Sex Assigned At Unknown Tobacco Use/Smoking Question Answer Notes Patient is a nonsmoker Alcohol Screen Question Answer Notes Did you [...] W/U Status Risk SNOMED Code Notes Problem Colon cancer screening (Z12.11) Active confirmed 263995780 Problem Encounter for other preprocedural examination (Z01.818) Active confirmed 402000206 Problem Long-term current use of high risk medication other than anticoagulant (Z79.899) Active confirmed 739105011 Problem Personal history of colonic polyps (Z86.010) Active confirmed History of polyp of colon (situation) (016555202) VITAL SIGNS Temperature 97.7 degrees Fahrenheit 03/16/2024 Blood pressure diastolic 00 mm Hg 03/16/2024 Height 5 ft 3 in in 03/16/2024 Blood pressure systolic 000 mm Hg 03/16/2024 Weight 181 lb 6 oz lbs 03/16/2024 BMI 32.13 kg/m2 03/16/2024 Encounters Encounter Location Date Provider Diagnosis [facility] [place] [facility] [address] [place], [place] [id number] 04/28/2024 Constantin Myers Jr Encounter for screening colonoscopy Z12.11 and Personal history of colonic polyps Z86.010 [facility] [address] [place] [phone] 03/16/2024 Constantin Myers Jr Colon cancer screening Z12.11 ; Encounter for other preprocedural examination Z01.818 and Long-term current use of high risk medication other than anticoagulant Z79.899 [facility] [address] [place] [phone] 11/19/2023 Ke Beltran ASSESSMENTS Encounter Date Diagnosis Assessment Notes Treatment Notes Treatment Clinical Notes 04/28/2024 Encounter for screening colonoscopy (ICD-10 - Z12.11) 04/28/2024 Personal history of colonic polyps (ICD-10 - Z86.010) 03/16/2024 Colon cancer screening (ICD-10 - Z12.11) Colonoscopy discharge material was printed 03/16/2024 Encounter for other preprocedural examination (ICD-10 - Z01.818) 03/16/2024 Long-term current use of high risk medication other than anticoagulant (ICD-10 - Z79.899) PLAN OF TREATMENT Future Test Test Name Order Date COLONOSCOPY 03/16/2024 Insurance Providers Payer Name Payer Address Payer Phone Subscriber Number Group Number Insured Name Patient Relationship to Insured Coverage Start Date Coverage End Date [employer] [facility] [address] [place] [address] [phone] [id number] AARON NUNEZ Self - patient is the insured [place] [address] [place] [address] [phone] [id number] AARON NUNEZ Self - patient is the insured MEDICAL (GENERAL) HISTORY Medical History History ICD Code Diabetes mellitus Colonoscopy 06/05, tubular adenoma, five- year followup Surgical History Surgery Date(Month/Year) Tubal ligation 2008 Uterine ablation 2014
--- OUTSIDE RECORDS SUMMARY | 2024-10-20 12:41 | XMS_ITS ---
Author Organization [facility] Address [address] [place] [phone] Care Team Providers Care Digital Photographer Name Role Phone Ned Son MD Primary Care Provider Constantin Andres Jr Unavailable [phone] ALLERGIES Allergen (clinical drug ingredient) Drug/Non Drug Allergy documented on EMR Reaction Allergy Type Onset Date Status codeine Codeine Unknown Drug Allergy Active REASON FOR VISIT Patient presents today for a screening colonoscopy MEDICATIONS Medication SIG (Take, Route, Frequency, Duration) Notes Start Date End Date Status metFORMIN HCl 500 MG TAKE 1 TABLET BY MO [facility] TWICE A DAY WITH A MEAL FOR 30 DAYS Oral for 30 Active OneTouch Ultra Test - In Vitro for 25 [...] Problem Colon cancer screening (Z12.11) Active confirmed 814669402 Problem Encounter for other preprocedural examination (Z01.818) Active confirmed 707467527 Problem Long-term current use of high risk medication other than anticoagulant (Z79.899) Active confirmed 715335476 VITAL SIGNS BMI 32.13 kg/m2 03/16/2024 Blood pressure systolic 000 mm Hg 03/16/20 24 Blood pressure diastolic 00 mm Hg 024 Height 5 ft 3 in in 03/16/2024 Temperature 97.7 degrees Fahrenheit 03/16/20 24 Weight 181 lb 6 oz lbs 03/16/2024 Encounters Encounter Location Date Provider Diagnosis [facility] [address] [place] [phone] 03/16/2024 Constantin Myers Jr Colon cancer screening Z12.11 ; Encounter for other preprocedural examination Z01.818 and Long-term current use of high risk medication other than anticoagulant Z79.899 ASSESSMENTS Encounter Date Diagnosis Assessment Notes Treatment Notes Treatment Clinical Notes 03/16/2024 Colon cancer screening (ICD-10 - Z12.11) Colonoscopy discharge material was printed 03/16/2024 Encounter for other preprocedural examination (ICD-10 - Z01.818) 03/16/2024 Long-term current use of high risk medication other than anticoagulant (ICD-10 - Z79.899) PLAN OF TREATMENT Medication Medication Name Sig Start Date Stop Date Notes MiraLax (colon prep) 17 GM/SCOOP mixed with Gatorade or Crystal Light Orally begin at 5:00 p.m. the day before the procedure for 1 day 03/16/2024 Treatment Notes Assessment Notes Colon cancer screening Colonoscopy disch arge material was printed Future Test Test Name Order Date COLONOSCOPY 03/16/2024 Next Appt Details Follow Up: 1 Year, Reason: Progress Notes * Examination Category Sub-Category Detail Notes General Examination GENERAL APPEARANCE: in no ac quileute distress HEAD: normocephalic EYES: sclera non-icteric NECK/THYROID: no lymphadenopathy HEART: S1, S2 normal, no mu rmurs CHEST: normal shape and exp ansion LUNGS: clear to auscultatio n bilaterally ABDOMEN: soft, nontender, non distended, bowel sounds present, no organomegaly SKIN: anicteric EXTREMITIES: no clubbing, cyanosi s, or edema PSYCH: cognitive function i ntact ORAL CAVITY: mucosa moist
--- OUTSIDE RECORDS SUMMARY | 2024-10-20 12:41 | XMS_ITS ---
Author Organization [facility] Address [address] [place] [address] Care Team Providers Care Continuous Mining Operator Name Role Phone Ned Son MD Primary Care Provider Constantin Andres Jr Unavailable Ke Beltran Unavailable [phone] REASON FOR VISIT ? Encounters Encounter Location Date Provider Diagnosis [facility] [address] [place] [address] 11/19/2023 Ke Beltran PLAN OF TREATMENT No Information
== END 2024-10-20 10:54 | disposition home or self-care (01) ==
LOC: HO.LNP 10:53
PROVIDERS: Visit Provider Internal Medicine
DX: Z00.00 Encounter for general adult medical examination without abnormal findings (principal); D72.829 Elevated white blood cell count, unspecified; E11.9 Type 2 diabetes mellitus without complications
CPT/HCPCS: 80053; 80061; 81001; 82043; 82570; 83036; 85025; 87086

== ENCOUNTER 2025-05-04 09:44 | Outpatient (AMB) | payer BC, MEDICAID, SELFPAY ==
--- OUTSIDE RECORDS SUMMARY | 2024-04-28 06:50 | XMS_ITS ---
Author Organization [facility] Address [address] [place] [phone] Care Team Providers Care Satellite Project Site Monitor Name Role Phone Ned Son MD Primary Care Provider Chalo Myers Jr, Constantin Marcano [phone] REASON FOR VISIT colon cancer screening Problems Problem Type SNOMED Code ICD Code Onset Dates Problem Status W/U Status Risk Notes Problem Personal history of colonic polyps (Z86.010) Active confirmed Encounters Encounter Location Date Provider Diagnosis [facility] [place] [address] [place] [phone] 04/28/2024 Constantin Myers Jr Encounter for screening colonoscopy Z12.11 and Personal history of colonic polyps Z86.010 Assessments Encounter Date Diagnosis (ICD Code) Assessment Notes Treatment Notes Treatment Clinical Notes Section Notes 04/28/2024 Encounter for screening colonoscopy (ICD-10 - Z12.11) 04/28/2024 Personal history of colonic polyps (ICD-10 - Z86.010) Plan Of Treatment No Information Progress Notes * AARON NUNEZ LDOB:1970 (54 yo F)Acc No.[id number]:04/28/2024 COLON WITH MAC Patient: AARON HITCHCOCK Provider: Lo Myers MD :1970 A ge:53 Y S ex:Female Date:04/28/2024 Address:[address] [place], [place] [phone] Pcp:Ned Son MD Subjective: * Chief Complaints: [...] 0 04/28/2024 Generated for Carlyn law/Sivakumar/Dagmaritting on: 0 05/04/2025 09:53 AM EDT
--- OUTSIDE RECORDS SUMMARY | 2024-10-20 03:15 | XMS_ITS ---
Author Organization Ned Son MD Address [address] [place], [place] [id number] Care Team Providers Care Controller Operations And Hr Manager Name Role Phone Ned Son Primary Care Provider [phone] Results Component Value Reference Range Notes Complete Blood Count Auto Di ff Reviewed date:10/20/2024 12:28:17 PM Interpretation: Performing Lab:[facility], [address] [place] [phone] Notes/Report: White Blood Count 7.1 4.8-10.8 X10*3/uL [...] NRBC Abs Auto 0.000 0.0-0.012 X10*3/uL Comprehensive [place]. Panel Fa st Reviewed date:10/20/2024 12:47:33 PM Interpretation: Performing Lab:[address] [phone] Notes/Report: Sodium 138 135-145 mmol/L Potassium 4.2 [...] Panel Reviewed date:10/20/2024 12:47:17 PM Interpretation: Performing Lab:[facility], [address] [place] [phone] Notes/Report: Triglycerides 83 <150 mg/dL Slight Lipemia. [...] Random Reviewed date:10/20/2024 12:19:30 PM Interpretation: Performing Lab:[address] [phone] Notes/Report: Creatinine Urine 47.42 Microalbumin Urine 20.0 Microalbum/Creatinine Ratio Ur 42.1 <30 ug/mg cr Albumin/Creatinine Ratio Reference Ranges: Normal: < 30 ug/mg creatinine Microalbuminuria: 30 - 300 ug/mg creatinine Clinical Albuminuria: > 300 ug/mg creatinine Hemoglobin A1c Reviewed date:10/20/2024 12:20:05 PM Interpretation: Performing Lab:[address] [phone] Notes/Report: Hemoglobin A1c % 6.3 <6.0 % [...] average glucose, using the formula of the K1Z-Kkoitco Average Glucose study (ADAG), Diabetes Care, Vol.31,#8, May. 2007 UA ClnCatch+Micro w/rflx Cul t Reviewed date:10/20/2024 12:31:15 PM Interpretation: Performing Lab:[facility], [address] [place] [phone] Notes/Report: Urine, Clean Catch Color Urine Yellow Appearance Urine Clear PH 7.0 5.0-9.0 Glucose Urine UA Negative Negative mg/dL Urine Blood Negative Negative Specific [place] - Urine 1.015 1.005-1.025 Urine Protein Negative [...] Location Date Provider Diagnosis Ned Son MD [address] [place] [phone] 10/20/2024 Ned Son Blood tests for routine [...] Details Provider Name:Ned byrnes, 10/22/2025 08:00:00 AM, [address] [place] [address], [address], [phone], Provider Name:Ned byrnes, 10/29/2025 02:30:00 PM, [address] [place] [address], [address], [phone], Progress Notes * Terry NUNEZ:1970 ( 54 yo F)Acc No.[id number]:10/20/2024 Progress Note Patient: Cady HITCHCOCK Provider: Khalida Son MD :1970 A ge:53 Y S ex:Female Date:10/20/2024 Address: [address], [place], [facility] Subjective: * Chief Complaints: * 1 . [...] - 10/20/2024 07:15 AM) L AB: Comprehensive [place]. Panel Fast (Collection Date & Time - [...] - 10/20/2024 07:15 AM) L AB: Comprehensive [place]. Panel Fast (Collection Date & Time - [...] 0 10/20/2024 Generated for Carlyn law/Sivakumar/Haley on: 0 05/04/2025 09:53 AM EDT
[2025-05-04 10:22] VITALS: BP 138/80; PULSE 78; TEMP 36.6; O2SAT 96; BMI 32.2
--- NOTE | 2025-05-04 10:22 | AM.OFFWIN_ITS ---
Intake Vital Signs 05/04/25 10:22 Height 5 ft 3 in Weight 182 lb BMI 32.2 BP 138/80 Blood Pressure Location Lt brachial Position Sitting Pulse 78 Pulse Source Pulse Oximeter Temp 97.9 F Temp Source Oral Pulse Oximetry (%) 96 Oxygen Delivery Method Room Air Intake Visit Reasons: EP TB test for work Intake Note: here for tb testing Patient Tobacco Use Status: Former Tobacco user Allergies codeine (Codeine) Adverse Reaction (Unknown, Verified 05/04/25 10:25) Nausea and Vomiting Medication List - Last Reconciled 05/04/25 by Allie Ricketts MD albuterol sulfate 90 mcg/actuation 2 inhalations inhalation Q4-6H PRN ibuprofen 800 mg PO TID PRN metformin 500 mg PO BID Do you need a note to return to daycare/school/sports/work: No HPI EP TB test for work HPI Details History - The patient is a 54-year-old female - presenting For the TB test, the patien t mentions the necessity to perform this screening every two years 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 - The patient denies any current infecti ons and reports that her recent lab tests and health parameters are good, with no infections being present at this time. . 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 - No tobacco use, reporting cessation ap proximately 15 years ago. Problem List Screening test for TB needed Patient Instructions - Follow directions to the laboratory fo r the TB test. - Call to obtain test results after appr oximately seven days. Review of Systems - General: No fever no chills - Neurological: No headaches no dizziness - Ear nose throat: No sore throat no hearing difficulty no ear pain - Cardiovascular: No syncope, no chest pain, no palpitations - Gastrointestinal: No nausea vomiting or diarrhea Physical Exam General: No acute distress HEENT: History of ear and sinus infections Neck: Supple Respiratory system: Able to talk in full sentences, no audible wheez Cardiovascular: S1-S2 regular in rate and rhythm Gastrointestinal: No pain BOOK OR SCRIPT EDITOR: Alert awake oriented x3 Skin: Normal turgor PFSH Medical History Diabetes Surgical History History of endometrial ablation Hx of tubal ligation H/O colonoscopy Social History Household Members: Spouse Patient Tobacco Use Status: Former Tobacco user Physical Exam Vital Signs: Last Vital Signs Temp 97.9 F 05/04/25 10:22 Pulse 78 05/04/25 10:22 BP 138/80 05/04/25 10:22 Pulse Ox 96 05/04/25 10:22 Oxygen Delivery Method Room Air 05/04/25 10:22 BMI result Body Mass Index 32.2 Assessment & Plan Assessment & Plan (1) Screening-pulmonary TB: Code(s): Z11.1 - Encounter for screening for respiratory tuberculosis Plan History - The patient is a 54-year-old female - presenting For the TB test, the patient mentions the necessity to perform this screening every two years because of caregiving duties for her 88-year-old pqcgtr-sv-afd. - The patient denies any current infections and reports that her recent lab tests and health parameters are good, with no infections being present at this time. . 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 - No tobacco use, reporting cessation approximately 15 years ago. Problem List Screening test for TB needed Patient Instructions - Follow directions to the laboratory for the TB test. - Call to obtain test results after approximately seven days. Orders: Orders T Spot TB Today Z11.1 - Encounter for screening for respiratory tuberculosis Coding Level of Care Code Est Pt Level 3 (71254) Diagnoses Screening-pulmonary TB Z11.1
== END 2025-05-04 11:15 | disposition home or self-care (01) ==
PROVIDERS: PCP Internal Medicine; Visit Provider Internal Medicine
DX: Z11.1 Encounter for screening for respiratory tuberculosis (principal)

== ENCOUNTER 2025-05-04 09:44 | Outpatient (REF) | payer BC, MEDICAID, SELFPAY ==
[2025-05-07 16:53] LABS: TS Negative Control Passed; TS Panel A 0; TS Panel B 0; TS Positive Control Passed; TSpotTB Negative (Negative)
== END 2025-05-04 09:45 | disposition home or self-care (01) ==
LOC: HO.HMGCLDS 09:44
PROVIDERS: PCP Internal Medicine; Visit Provider Internal Medicine
DX: Z11.1 Encounter for screening for respiratory tuberculosis (principal)
CPT/HCPCS: 36415; 86481

== ENCOUNTER 2025-06-01 15:01 | Emergency (ER) | payer BC, MEDICAID, SELFPAY ==
--- NOTE | ~2025-06-01 | XR_ITS ---
EXAMINATION: XR HAND, RIGHT CLINICAL INFORMATION: no injury, pain COMPARISON: November 18, 2017. TECHNIQUE: PA, lateral, and oblique views of the right hand. FINDINGS: Metacarpal bones are intact. Phalanges are intact with normal alignment. Preservation of the joint spaces. No lytic or blastic lesions. Stable irregularity at the waist of scaphoid. No metallic or radiopaque foreign body. No subcutaneous emphysema. XR/XR hand RT min 3V IMPRESSION: No acute fracture or dislocation. Stable. Electronically signed by: Jaiden Multani MD 06/01/2025 03:56 PM EDT
--- NOTE | ~2025-06-01 | XR_ITS ---
EXAMINATION: XR WRIST, RIGHT CLINICAL INFORMATION: no injury, pain COMPARISON: November 18, 2017. TECHNIQUE: PA, lateral, and oblique views of the right wrist. Scaphoid projection. FINDINGS: Stable morphology at the waist of the scaphoid. Carpal bones are intact with normal alignment. The metacarpals are intact. Distal radius and ulna are intact. There is preservation of the joint spaces. No subcutaneous emphysema. No metallic or radiopaque foreign body. XR/XR wrist RT min 3V IMPRESSION: No acute fracture or dislocation. Stable. Electronically signed by: Jaiden Multani MD 06/01/2025 03:55 PM EDT
[2025-06-01 15:16] VITALS: BP 143/82; PULSE 72; RESP 18; TEMP 36.6; O2SAT 98; BMI 33.5
--- NOTE | 2025-06-01 15:18 | ED.UPPEXIN ---
HPI - Extremity Injury (Upper) General Chief Complaint: Extremity Injury, Upper Stated Complaint: R hand pain/swelling no injury Time Seen by Provider: 06/01/25 18:46 Source: patient and old records reviewed Mode of arrival: ambulatory Limitations: no limitations History of Present Illness ED Provider: EMILEE HERRMANN narrative: 54 yo female with PMH of DM who is R handed notes yesterday she started wtih R thumb and R index finger pain. She denies numbness, rash, tingling. Her PCP sent her for xrays of hand. She notes has pain with moving fingers. No injections to R hand complaint: injury to: right, hand and finger Onset (ago): day(s) (1) Other injuries: none Handedness: right Place: home Severity: moderate Relieving factors: immobilization Exacerbating factors: movement of extremity Context: other Associated symptoms: denies other symptoms Related Data Home Medications ?Medication ?Instructions ?Recorded ?Confirmed ibuprofen 800 mg tablet 800 mg PO TID PRN Pain 04/26/24 05/04/25 metformin 500 mg tablet 500 mg PO BID 04/26/24 05/04/25 Previous Rx's ?Medication ?Instructions ?Recorded albuterol sulfate 90 mcg/actuation 2 inh inhalation Q4-6H PRN 01/29/23 breath activated powder inhaler shortness of breath #1 ea cyclobenzaprine 10 mg tablet 10 mg PO TID PRN muscle spasm #20 06/01/25 tabs Allergies Allergy/AdvReac Type Severity Reaction Status Date / Time codeine (Codeine) AdvReac Unknown Nausea and Verified 06/01/25 15:17 Vomiting Review of Systems Review of Systems: Constitutional : No Fever, No Chills ENT/Mouth : No Ear Pain, No Hoarseness, No sore throat Eyes: No Eye Pain, No Swelling, No Redness, No Foreign Body Cardiovascular : No Chest Pain, No SOB Respiratory : No Cough, No Dyspnea Gastrointestinal : No Nausea, No Vomiting, No Diarrhea, No abdominal Pain Genitourinary : No Dysuria, No Hematuria Musculoskeletal : positive joint pain, No Myalgias, pos Joint Swelling Skin : No Skin lacerations, No rash Neuro : No Weakness, No Numbness, No Loss of Consciousness, No Dizziness, No Headache All other systems reviewed and are negative PMFSH Past Medical History Attestation statement: The following information was validated with the patient. Source: old records reviewed Medical History Diabetes Surgical History History of endometrial ablation Hx of tubal ligation H/O colonoscopy Social History Social History Household Members: Spouse Patient Tobacco Use Status: Former Tobacco user Advance Directives: No Advance Directives Information Provided: No Do you have a plan to hurt others: No Plan Physical Exam Vital Signs: Vital Signs: Last Vital Signs Temp 98 F 06/01/25 15:16 Pulse 72 06/01/25 15:16 Resp 18 06/01/25 15:16 BP 143/82 H 06/01/25 15:16 Pulse Ox 98 06/01/25 15:16 O2 Del Method Room Air 06/01/25 15:16 BMI result Body Mass Index 33.5 Appearance: Alert. Oriented X3. No acute distress. Eyes: Pupils equal, round and reactive to light. ENT: Pharynx normal. atraumatic Neck: Normal inspection. Neck supple. CVS: Pulses normal. Chest: atraumatic Respiratory: No respiratory distress. . Abdomen: Soft and nontender. Skin: Skin warm and dry. Normal skin color. Extremities: R hand no rash, NV intact, normal FDP/FSP of thumb, fingers index through pinkie, SILT intact, BCR, can approximate thumb along each finger - 2+ radial pulse Neuro: Oriented X 3. No motor deficit. No sensory deficit. CN2-12 intact Course Course Course Narrative: Libia Daley EVENT MARKETING MANAGER 06/01/25 [id number] This is a rapid medical exam. Deferred additional HPI, ROS, PE to primary provider. 54 yo female with PMH of DM, chronic bronchitis, arthritis, right hand dominant here with complaints of pain/swelling to right hand 1-3 digits since yesterday. Started on prednisone by her PCP yesterday. Sent over from PCP for further evaluation. Will obtain x-rays VSS Medical Decision Making Medical Decision Making MDM Narrative: 54 yo female R handed - s/p likely overuse injury suspect tendinopathy - she has no signs of infection, NV intact, no rash, she overall looks well on exam. Will obtain imaging, place in splint and refer to PCP. No signs of swelling in arm to suggest DVT. Differential Diagnosis Differential Diagnoses: The differential diagnosis associated with the presentation includes sprain, tendinopathy External Record Review External record reviewed: Outpatient record Prescription Management I considered prescription management with: Pain Medication and Other Procedures Orthopedic Splinting/Casting Injury #1: Side: right Upper Extremity Immobilizer: volar splint Additional Comments: NV intact Discharge Plan Discharge Clinical Impression: Tendinopathy Finger sprain Qualifiers: Encounter type: initial encounter Finger: index finger Sprain of finger site: unspecified site Laterality: right Qualified Code(s): S63.610A - Unspecified sprain of right index finger, initial encounter Patient Disposition: Home, Self-Care Instructions: Sprain (ED) Additional Instructions: xrays show no broken bones keep splint on for 1 week take ibuprofen or tylenol for pain use prednisone return for redness, fevers, worsening swelling or any other concerns. Prescriptions: New cyclobenzaprine 10 mg tablet 10 mg PO TID PRN (Reason: muscle spasm) Qty: 20 0RF No Action metformin 500 mg tablet 500 mg PO BID ibuprofen 800 mg Tablet 800 mg PO TID PRN (Reason: Pain) albuterol sulfate 90 mcg/actuation aerosol powdr breath activated 2 inh inhalation Q4-6H PRN (Reason: shortness of breath) Qty: 1 0RF Stand Alone Forms: Work/School Release Print Language: Icelandic
[2025-06-01 19:35] VITALS: BP 143/82; PULSE 72; RESP 18; TEMP 36.6; O2SAT 98
== END 2025-06-01 19:35 | disposition home or self-care (01) ==
PROVIDERS: Emergency Provider Emergency Medicine; PCP Internal Medicine
DX: S63.610A Unspecified sprain of right index finger, initial encounter (principal); M79.641 Pain in right hand; X50.3XXA Overexertion from repetitive movements, initial encounter; Y93.89 Activity, other specified; Y92.89 Other specified places as the place of occurrence of the external cause; Y99.8 Other external cause status; Z79.899 Other long term (current) drug therapy; Z87.891 Personal history of nicotine dependence
CPT/HCPCS: 29125; 73110; 73130; 99282; 99283; 99284

== ENCOUNTER → 2025-06-01 15:19 | Outpatient (BNV) | payer BC, SELFPAY | PROVIDERS: PCP Internal Medicine; Visit Provider Radiology Diagnostic Radiology | DX: M79.641 Pain in right hand (principal); M25.531 Pain in right wrist | CPT/HCPCS: 73110; 73130 ==

== ENCOUNTER 2025-06-20 08:06 | Outpatient (REF) | payer BC, SELFPAY ==
--- OUTSIDE RECORDS SUMMARY | 2024-04-28 06:50 | XMS_ITS ---
Author Organization [facility] Address [address] [place] [phone] Care Team Providers Care Heat Treating Operator Name Role Phone Ned Son MD Primary Care Provider Chalo Myers Jr, Constantin Marcano REASON FOR VISIT colon cancer screening Problems Problem Type SNOMED Code ICD Code Onset Dates Problem Status W/U Status Risk Notes Problem Personal history of colonic polyps (Z86.010) Active confirmed Encounters Encounter Location Date Provider Diagnosis [facility] [place] Out[place] [address] [place] [phone] 04/28/2024 Constantin Myers Jr Encounter for screening colonoscopy Z12.11 and Personal history of colonic polyps Z86.010 Assessments Encounter Date Diagnosis (ICD Code) Assessment Notes Treatment Notes Treatment Clinical Notes Section Notes 04/28/2024 Encounter for screening colonoscopy (ICD-10 - Z12.11) 04/28/2024 Personal history of colonic polyps (ICD-10 - Z86.010) Plan Of Treatment No Information Progress Notes * AARON NUNEZ LDOB:1970 (54 yo F)Acc No.[id number]:04/28/2024 COLON WITH MAC Patient: AARON HITCHCOCK Provider: Lo Myers MD :1970 A ge:53 Y S ex:Female Date:04/28/2024 Address:[address] [place], [place] [phone] Pcp:Ned Son MD Subjective: * Chief Complaints: [...] 04/28/2024 Generated for Carlyn law/Sivakumar/Dagmaritting on: 0 06/20/2025 08:28 AM EDT
--- OUTSIDE RECORDS SUMMARY | 2025-06-01 10:14 | XMS_ITS ---
Author Organization Ned Son MD Address 10 [facility] [address] [place] [phone] Care Team Providers Care Data Analytics Analyst Name Role Phone Ned Son Primary Care Provider REASON FOR VISIT hand pain Encounters Encounter Location Date Provider Diagnosis Ned Son MD 10 [facility] [address] [place] [phone] 06/01/2025 Ned Son Plan Of Treatment Next Appt Details Provider Name:Ned byrnes, 10/22/2025 08:00:00 AM, [address] [place] [address], [address], [phone], Provider Name:Ned byrnes, 10/29/2025 02:30:00 PM, [address] [place] [address], [address], [phone], Progress Notes * Terry NUNEZ:1970 ( 54 yo F)Acc No.[id number]:06/01/2025 Patient: Cady HITCHCOCK :1970 A ge:54 Y S ex:Female Address:[address] [place] [address] * true * Date: Generated for Printi ng/Faxing/eTransmitting on: 0 06/20/2025 08:27 AM EDT
--- OUTSIDE RECORDS SUMMARY | 2025-06-04 07:29 | XMS_ITS ---
Author Organization Ned Son MD Address [address] [place], [place] [phone] Care Team Providers Care Stonemason Supervisor Name Role Phone Ned Son Primary Care Provider [phone] Reason For Referral Reason right hand pain [facility] ER report and x-rays will be faxed [...] pain Encounters Encounter Location Date Provider Diagnosis eNd Son MD [address] [place], [place] [phone] 06/04/2025 Ned Son Plan Of Treatment Referrals Referral Date Details 06/04/2025 06/04/2025, right hicks nd pain [facility] [place] ER report and x-rays will be faxed, [place] [place] Appt Details Provider Name:Ned byrnes, 10/22/2025 08:00:00 AM, [address], [address], [place], [place], [phone], Provider Name:Ned byrnes, 10/29/2025 02:30:00 PM, [address], [address], [place], [phone], Progress Notes * Tarik NUNEZAdrielB:1970 ( 54 yo F)Acc No.[id number]:06/04/2025 Patient: Cady HITCHCOCK :1970 A ge:54 Y S ex:Female Address: [address], [place], [place] [address] Subjective: * Chief Complaints: * R t hand pain * Medical History: * Surgical History: * Hospitalization/Major Diagno stic Procedure: * Medications: Objective: * Vitals: * Physical Examination: Assessment: Plan: * Treatment: * Procedure Codes: * true * Date: Generated for Printi ng/Faxing/eTransmitting on: 0 06/20/2025 08:28 AM EDT Consultation Request Notes Referral Date Referring Provider Referred Provider Not es 06/04/2025 Ned Son Allison right hand pain [facility] [place] ER report and x-rays will be faxed
--- OUTSIDE RECORDS SUMMARY | 2025-06-05 05:15 | XMS_ITS ---
Author Organization Ned Son MD Address 10 [facility] [address] [place] [phone] Care Team Providers Care Tab Cutter Name Role Phone Ned Son Primary Care Provider [phone] REASON FOR VISIT ER Encounters Encounter Location Date Provider Diagnosis Ned Son MD [address] [facility] [address] [place] [phone] 06/05/2025 Ned Son Plan Of Treatment Next Appt Details Provider Name:Ned byrnes, 10/22/2025 08:00:00 AM, [address] [place] [address], [address], [phone], Provider Name:Ned byrnes, 10/29/2025 02:30:00 PM, [address] [place] [address], [address], [phone], Progress Notes * Carlyle NUNEZB:1970 ( 54 yo F)Acc No.[id number]:06/05/2025 Patient: Cady HITCHCOCK :1970 A ge:54 Y S ex:Female Address:[address] [place] [address] * true * Date: Generated for Printi ng/Faxing/eTransmitting on: 0 06/20/2025 08:28 AM EDT
--- OUTSIDE RECORDS SUMMARY | 2025-06-05 07:34 | XMS_ITS ---
Author Organization Ned Son MD Address [address] [place] [phone] Care Team Providers Care Industrial Plant Custodian Name Role Phone Ned Son Primary Care [...] Date Provider Diagnosis Ned Son MD [address] [place] [phone] 06/05/2025 Ned Son Tendonitis M77.9 Assessments Encounter [...] Provider Name:Ned byrnes, 10/22/2025 08:00:00 AM, 10 [facility], Suite [facility], [place], [place], [phone], Provider Name:Ned Williamson davidr, 10/29/2025 02:30:00 PM, [address], [address], [place], [place], [phone], Progress Notes * Terry NUNEZ:1970 ( 54 yo F)Acc No.[id number]:06/05/2025 Patient: Cady HITCHCOCK :1970 A ge:54 Y S ex:Female Address: [address], [place] [address] * Refills Continue predniSONE Tablet, 20 MG, Orally, 7 Tablet, 1 tablet with food or milk, Once a day, 7 days Start Cyclobenzaprine HCl Tablet, 10 MG, Orally, 10 Tablet, 1 tablet at bedtime as needed, Once a day, 10 days * true * Date: Generated for Carlyn law/Sivakumar/Dagmaritting on: 0 06/20/2025 08:28 AM EDT
--- OUTSIDE RECORDS SUMMARY | 2025-06-12 10:08 | XMS_ITS ---
Author Organization Ned Son MD Address [address] [place] [phone] Care Team Providers Care Radio Television Technical Director Name Role Phone Ned Son Primary Care Provider [phone] REASON FOR VISIT Prednisone Medications Medication SIG (Take, Route, Fr equency, Duration) Notes Start Date End Date Status predniSONE 20 MG 1 tablet with food o r milk Orally Once a day for 7 days 05/31/2025 Active Encounters Encounter Location Date Provider Diagnosis Ned Son MD 10 [facility] [address] [place] [phone] 06/12/2025 Ned Son Tendonitis M77.9 Assessments Encounter Date Diagnosis (ICD Code) Assessment Notes Treatment Notes Treatment Clinical Notes Section Notes 06/12/2025 Tendonitis (ICD-10 - M77.9) Plan Of Treatment Medication Medication Name Sig Start Date Stop Date Notes predniSONE 20 MG 1 tablet with food o r milk Orally Once a day for 7 days 05/31/2025 Next Appt Details Provider Name:eNd byrnes, 10/22/2025 08:00:00 AM, [address] [place] [address], [address], [phone], Provider Name:Ned byrnes, 10/29/2025 02:30:00 PM, [address] [place] [address], [address], [phone], Progress Notes * Terry NUNEZ:1970 ( 54 yo F)Acc No.[id number]:06/12/2025 Patient: Cady HITCHCOCK :1970 A ge:54 Y S ex:Female Address: [address], [place] [address] * Refills Refill predniSONE Tablet, 20 MG, Orally, 7 Tablet, 1 tablet with food or milk, Once a day, 7 days * true * Date: Generated for Carlyn law/Sivakumar/Ivysmitting on: 0 06/20/2025 08:29 AM EDT
--- NOTE | ~2025-06-20 | XR_ITS ---
EXAMINATION: XR HAND, RIGHT CLINICAL INFORMATION: M79.641 - Pain in right hand COMPARISON: 06/01/2025 TECHNIQUE: PA, lateral, and oblique views of the right hand. FINDINGS: Small marginal osteophytes are noted at the radial side of the first digit IP joint. No other osteophytes are seen. Joint spaces are preserved. There is normal bone mineral density. 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 Linear density and lucency across the waist scaphoid is probably projectional in nature and related to summation artifact of trabecula and scaphoid tuberosity. If there is concern for a scaphoid fracture, consider follow-up x-ray in 7-10 days. Electronically signed by: Carlyle Brown MD 06/20/2025 10:27 AM EDT
--- OUTSIDE RECORDS SUMMARY | 2025-06-20 08:29 | XMS_ITS | Patient Health Record ---
Author Organization [facility] Address [address] [place] [address] Care Team Providers Care Die Storage Worker Name Role Phone Ned Son MD Primary Care Provider Constantin Andres Jr Unavailable [phone] Allergies Allergen (clinical drug ingredient) Drug/Non Drug Allergy documented on EMR Reaction Allergy Type Onset Date Status codeine Codeine Unknown Drug Allergy Active Reason For Referral No Information Medications Medication SIG (Take, Route, Frequency, Duration) Notes Start Date End Date Status metFORMIN HCl 500 MG TAKE 1 TABLET BY MO [facility] TWICE A DAY WITH A MEAL [...] the procedure for 1 day 03/16/2024 Active Immunizations Vaccine Route Administration Date Status Comme nts Influenza Unknown 03/16/2024 Refused Social History Tobacco Use: Social History Observation Description Date Details (start date - stop date) Never Smoker NA - NA Tobacco Use/Smoking Question [...] Never (0 point) Points 1 Interpretation Negative Problems Problem Type SNOMED Code ICD Code Onset Dates Problem Status W/U Status Risk Notes Problem 684653102 Colon cancer screening (Z12.11) Active confirmed Problem Personal history of colonic polyps (Z86.010) Active confirmed Problem 980010095 Encounter for other preprocedural examination (Z01.818) Active confirmed Problem 697560567 Long-term curren t use of high risk medication other than anticoagulant (Z79.899) Active confirmed Plan Of Treatment Future Test Test Name Order Date COLONOSCOPY 03/16/2024 Insurance Providers Payer Name Payer Address Payer Phone Subscriber Number Group Number Insured Name Patient Relationship to Insured Coverage Start Date Coverage End Date BLUE CR[employer] [facility] [address] [place] [address] [phone] [id number] AARON NUNEZ Self - patient is the insured MEDICAID OF [facility] [address] [place] [address] [phone] [id number] AARON NUNEZ Self - patient is the insured Medical (General) History Medical History History ICD Code Diabetes mellitus Colonoscopy 06/05, tubular adenoma, five- year followup Surgical History Surgery Date(Month/Year) Tubal ligation 2008 Uterine ablation 2014
--- OUTSIDE RECORDS SUMMARY | 2025-06-20 08:30 | XMS_ITS | Patient Health Record ---
Author Organization Ned Son MD Address [address] [place], [place] [phone] Care Team Providers Care Customer Service Security Officer Name Role Phone Ned Son Primary Care Provider Allergies Allergen (clinical drug ingredient) Drug/Non Drug Allergy documented on EMR Reaction Allergy Type Onset Date Status Codeine Phosphate vomiting Drug Allergy Active Results Component Value Reference Range Notes Hemoglobin A1c Reviewed date:04/30/2025 03:22:27 PM Interpretation: Performing Lab: Notes/Report: Hemoglobin A1c 7.1 Complete Blood Count Auto Di ff Reviewed date:10/20/2024 12:28:17 PM Interpretation: Performing Lab:[facility], [address] [place] [phone] Notes/Report: White Blood Count 7.1 4.8-10.8 X10*3/uL [...] 0.0-0.2 /100WBC Neutrophils Absolute Auto 3.5 2.0-8.3 x10*3/uL Imm Gran Abs Auto 0.02 0.00-0.03 X10*3/uL Lymphocytes Absolute Auto 2.9 1.2-4.9 X10*3/uL Monocytes Absolute Auto 0.5 0.1-1.2 X10*3/uL Eosinophils Absolute Auto 0.2 0.0-0.4 X10*3/uL Basophils Absolute Auto 0.0 0.0-0.2 X10*3/uL NRBC Abs Auto 0.000 0.0-0.012 X10*3/uL Comprehensive [place]. Panel Fa st Reviewed date:10/20/2024 12:47:33 PM Interpretation: Performing Lab:[facility], [address] [place] [phone] Notes/Report: Sodium 138 135-145 mmol/L Potassium 4.2 [...] Panel Reviewed date:10/20/2024 12:47:17 PM Interpretation: Performing Lab:[facility], [address] [place] [phone] Notes/Report: Triglycerides 83 <150 mg/dL Slight Lipemia. [...] Random Reviewed date:10/20/2024 12:19:30 PM Interpretation: Performing Lab:[facility], [address] [place] [phone] Notes/Report: Creatinine Urine 47.42 Microalbumin Urine 20.0 Microalbum/Creatinine Ratio Ur 42.1 <30 ug/mg cr Albumin/Creatinine Ratio Reference Ranges: Normal: < 30 ug/mg creatinine Microalbuminuria: 30 - 300 ug/mg creatinine Clinical Albuminuria: > 300 ug/mg creatinine Hemoglobin A1c Reviewed date:10/20/2024 12:20:05 PM Interpretation: Performing Lab:[facility], [address] [place] [phone] Notes/Report: Hemoglobin A1c % 6.3 <6.0 % [...] average glucose, using the formula of the E1R-Njkwasc Average Glucose study (ADAG), Diabetes Care, Vol.31,#8, 2007 UA ClnCatch+Micro w/rflx Cul t Reviewed date:10/20/2024 12:31:15 PM Interpretation: Performing Lab:[facility], [address] [place] [phone] Notes/Report: Urine, Clean Catch Color Urine Yellow Appearance Urine Clear PH 7.0 5.0-9.0 Glucose Urine UA Negative Negative mg/dL Urine Blood Negative Negative Specific Rumsey - Urine 1.015 1.005-1.025 Urine Protein Negative Neg-Trace mg/dL Urine Ketones Negative Negative mg/dL Nitrite Urine Negative Negative Leukocyte Esterase Urine Small (1+) Negative RBC Urine 0-2 0-2 /HPF WBC Urine 0-5 0-5 /HPF Squamous Epithelial Cell Urine 3-5 0-2 /HPF Bacteria Urine None Seen None Seen Hyaline Casts Urine 0-2 0-2 /LPF Glucose, finger stick Reviewed date:04/30/2025 03:16:01 PM Interpretation: Performing Lab: Notes/Report: Value 139 Glucose, finger stick Reviewed date:05/31/2025 02:15:41 PM Interpretation: Performing Lab: Notes/Report: Value 145 MM tomosynthesis screening B I Reviewed date:08/18/2024 12:53:33 PM Interpretation: Performing Lab: Notes/Report: [address] [place] [address] Mammography Report Signed with Chaz Patient: Cady Hernandez MR#: [id number] 8 : 1970 Acct:[id number] Age/Sex: 53 / F ADM Date: 08/04/24 Loc: MAMMO Attending Dr: Ned Son MD Ordering Physician: Ned Son MD Results: 2Be nign Findings Date of Service: 08/04/24 Follow Up: 1 Year From Orig inal Mammogram Procedure(s): MM tomosynthesis screening BI Accession Number(s): [id number] cc: Ned Son MD ADDENDUM ADDENDUM #1 [...] OV> 08/15/24 1446 DD/ 2 TD/TT: 08/04/241005 Air Conditioning Supervisor: [facility] [address] [place] [address] Mammography Report Signed with Chaz Patient: Cady Hernandez MR#: [id number] 8 : 1970 Acct:[id number] Age/Sex: 53 / F ADM Date: 08/04/24 Loc: HO.MAMMO Attending Dr: Ned Son MD Ordering Physician: Ned Son MD Results: 2Be nign Findings Date of Service: 08/04/24 Follow Up: 1 Year From Orig inal Mammogram Procedure(s): MM tomosynthesis screening BI Accession Number(s): [id number] cc: Ned Son MD ADDENDUM ADDENDUM #1 ADDENDUM: Due to a software is lexa related to the original report, this case has been reviewed again and the original findings and recommendations remain the same. OVERALL ASSESSMENT: BI-RADS 2 - Benign Findings RECOMMENDATION: 1 year F/U Electronically dionte d by: Susy Love DO 08/18/2024 10:51 AM EDT RP Addendum Dictated By : Susy Love DO Addendum Signed By: <Electronically signed by Susy Love DO in OV> 08/18/24 1051 Addendum Cosigned By: DD/ TD/TT: 08/04/24 EXAMINATION: MM SCREENING DIGITAL BREAST TOMOSYNTHESIS, BILATERAL CLINICAL INFORMATION: Screening. Asymptomatic. COMPARISON: Mammography: Compari son is made with available priors TECHNIQUE: Digital [...] mammography screening. 1 year F/U This examination rashida uld not preclude the clinical evaluation of a suspicious palpable abnormality. This patient's information was entered into a reminder system with a target due date for their next mammogram. Electronically dionte d by: Susy Love DO 08/15/2024 02:46 PM EDT RP Dictated By: Tyminski,Susy DO Signed By: <Electronically signed by Susy Love, in OV> 08/15/24 1446 DD/ 0953 TD/TT: 08/04/24 1006 Air Conditioning Supervisor: Urine Culture Reviewed date:10/22/2024 06:22:24 PM Interpretation: Performing Lab:[facility], [address] [place] [phone] Notes/Report: Urine Culture Report Result Urine Culture > 100,000 cfu/ml Urine Culture Mixed bacterial veronica a characteristic of Urine Culture urogenital contamination. T Spot TB Reviewed date:05/07/2025 07:28:01 PM Interpretation: Performing Lab:[facility], [address] [place] [phone] Notes/Report: TSpotTB Negative Negative A negative test result does not exclude the possibility of exposure to or infection with Mycobacterium tuberculosis (M. tuberculosis). Patients with recent exposure to TB infected individuals exhibiting a negative T-SPOT.TB result should be considered for retesting within 6 weeks or if other relevant clinical symptoms indicate. Results from T-SPOT.TB testing must be used in conjunction with each individual's epidemiological history, current medical status, and results of other diagnostic evaluations. The T-SPOT.TB test is qualitative and results are reported as positive, borderline, or negative, given that the test controls perform as expected. In line with the Centers for Disease Control and Prevention's 2010 recommendation to report quantitative measurements alongside the qualitative result, the laboratory provides spot counts for informational purposes only. The T-SPOT.TB test should not be interpreted as a quantitative test. TS Panel A 0 TS Panel B 0 TS Negative Control Passed TS Positive Control Passed For additional information, please refer to http://education.Towandas book.Rexter/faq/FA Q215 (This link is being provided for informational/ educational purposes only.) THIS TEST WAS PERFORMED AT: [facility]/[address] [address] PANKAJ SUMMERS MD,PHD XR hand RT min 3V Reviewed date:06/01/2025 04:10:42 PM Interpretation: Performing Lab: Notes/Report: [address] [address] XRay Report Signed Patient: Cady Hernandez MR#: [id number] 8 : 1970 Acct:[id number] Age/Sex: 54 / F ADM Date: 06/01/25 Loc: HO.ED Attending Dr: Ordering Physician: Libia Daley NP Date of Service: 06/01/25 Procedure(s): XR hand RT min 3V Accession Number(s): [id number] cc: Ned Son MD; Libia Daley NP EXAMINATION: XR HAND, RIGHT CLINICAL INFORMATION: no injury, pain COMPARISON: November 18, 2017. TECHNIQUE: PA, lateral, and oblique views of the right hand. FINDINGS: Metacarpal bones are intact. Phalanges are intact with normal alignment. Preservation of the joint spaces. No lytic or blastic lesions. Stable irregularity at the waist of scaphoid. No metallic or radiopaque foreign body. No subcutaneous emphysema. XR/XR hand RT min 3V IMPRESSION: No acute fracture or dislocation. Stable. Electronically signed by: Jaiden Multani MD 06/01/2025 03:56 PM EDT RP Dictated By: Jaiden Elaine MD Signed By: <Electronically signed by Jaiden Hargrove MD in OV> 06/01/25 1556 DD/ 1436 TD/TT: 06/01/25 1539 Air Conditioning Supervisor: [place] [address] XRay Report Signed Patient: Cady Hernandez MR#: [id number] 8 : 1970 Acct:[id number] Age/Sex: 54 / F ADM Date: 06/01/25 Loc: HO.ED Attending Dr: Ordering Physician: Libia Daley NP Date of Service: 06/01/25 Procedure(s): XR garcias d RT min 3V Accession Number(s): [id number] cc: Ned Son MD; Libia Daley NP EXAMINATION: XR HAND, RIGHT CLINICAL INFORMATION: no injury, pain COMPARISON: November 18, 2017. TECHNIQUE: PA, lateral, and oblique views of the right hand. FINDINGS: Metacarpal bones are intact. Phalanges are intact with normal alignment. Preservat ion of the joint spaces. No lytic or blastic lesions. Stable irregularity at the waist of scaphoid. No metallic or radiopaque foreign body. No subcutaneous emphysema. XR/XR hand RT min 3V IMPRESSION: No acute fracture or dislocation. Stable. Electronically dionte d by: Jaiden Multani MD 06/01/2025 03:56 PM EDT RP Dictated By: Jaiden Elaine MD Signed By: <Electronically signed by Jaiden Hargrove MD in OV> 06/01/25 1556 DD/ 1436 TD/TT: 06/01/25 1539 Air Conditioning Supervisor: XR wrist RT min 3V Reviewed date:06/01/2025 04:19:07 PM Interpretation: Performing Lab: Notes/Report: [place] [address] XRay Report Signed Patient: Cady Hernandez MR#: [id number] 8 : 1970 Acct:[id number] Age/Sex: 54 / F ADM Date: 06/01/25 Loc: .ED Attending Dr: Ordering Physician: Libia Daley NP Date of Service: 06/01/25 Procedure(s): XR wrist RT min 3V Accession Number(s): [id number] cc: Ned Son MD; Libia Daley NP EXAMINATION: XR WRIST, RIGHT CLINICAL INFORMATION: no injury, pain COMPARISON: November 18, 2017. TECHNIQUE: PA, lateral, and oblique views of the right wrist. Scaphoid projection. FINDINGS: Stable morphology at the waist of the scaphoid. Carpal bones are intact with normal alignment. The metacarpals are intact. Distal radius and ulna are intact. There is preservation of the joint spaces. No subcutaneous emphysema. No metallic or radiopaque foreign body. XR/XR wrist RT min 3V IMPRESSION: No acute fracture or dislocation. Stable. Electronically signed by: Jaiden Multani MD 06/01/2025 03:55 PM EDT RP Dictated By: Jaiden Elaine MD Signed By: <Electronically signed by Jaiden Hargrove MD in OV> 06/01/25 1555 DD/ TD/TT: 06/01/25 153 Air Conditioning Supervisor: [place] [address] XRay Report Signed Patient: Cady Hernandez MR#: [id number] 8 : 1970 Acct:[id number] Age/Sex: 54 / F ADM Date: 06/01/25 Loc: HO.ED Attending Dr: Ordering Physician: Libia Daley NP Date of Service: 06/01/25 Procedure(s): XR wri st RT min 3V Accession Number(s): [id number] cc: Ned Son MD; Libia Daley NP EXAMINATION: XR WRIST, RIGHT CLINICAL INFORMATION: no injury, pain COMPARISON: November 18, 2017. TECHNIQUE: PA, lateral, and oblique views of the right wrist. Scaphoid projection. FINDINGS: Stable morphology at the waist of the scaphoid. Carpal bones are int act with normal alignment. The metacarpals are intact. Distal radius and ul na are intact. There is preservation of the joint spaces. No subcutaneous emphysema. No metallic or radiopaque foreign body. XR/XR wrist RT min 3V IMPRESSION: No acute fracture or dislocation. Stable. Electronically dionte d by: Jaiden Multani MD 06/01/2025 03:55 PM EDT RP Dictated By: Jaiden Elaine MD Signed By: <Electronically signed by Jaiden Hargrove MD in OV> 06/01/25 1555 DD/ 36 TD/TT: 06/01/25 153 Air Conditioning Supervisor: Reason For Referral Reason right hand pain HM C ER report and x-rays will be faxed Diagnosis 1 Pain in right hand ( M79.641) Referral Organization Ned Son MD Referring Provider First Name Ned Referring Provider Last Name Adelaida Referring Provider Speciality Internal M edicine Referred Provider Lety Lomeli Referred Provider Specialty Hand Surgery General Notes Calvin Coco 0 06/04/2025 01:07:39 PM >info fakeylaed Calvin Coco 06/05/2025 11:28:25 AM >patient is aware of the appt Referral Priority Routine Referral Appointment Date 06/20/2025 Medications Medication SIG (Take, Route, Frequency, Duration) Notes Start Date End Date Status OneTouch Ultra Test - USE DIRECTED TW ICE A DAY for 25 Active predniSONE 20 MG 1 tablet with food o r milk Orally Once a day for 7 days 05/31/2025 Active Ibuprofen 800 MG TAKE 1 TABLET BY MOUTH THREE TIMES A DAY WITH FOOD OR MILK NEEDED FOR 30 DAYS for 30 Active Cyclobenzaprine HCl 10 MG 1 tablet at be dtime as needed Orally Once a day for 10 days 06/05/2025 Active Tylenol 8 Hour 650 MG 2 tablets as neede d Orally every 8 hrs Not-Taking metFORMIN HCl 500 MG TAKE 1 TABLET BY MOUTH TWICE A DAY WITH A MEAL FOR 30 DAYS Active Mucinex 600 MG 1 tablet as needed Orally every 12 hrs Not-Taking Albuterol Sulfate HFA 108 (90 Base) MCG/ACT INHALE 2 PUFFS INTO THE LUNGS EVERY 4 HOURS NEEDED FOR 30 DAYS for 17 Active Clobetasol Propionate E 0.05 % as directed Externally twice for 30 days 12/12/2012 Not-Taking Immunizations Vaccine Route Administration Date Status Comme [...] 07/04/2021 Refused Fluarix Quadrivalent Unknown 10/02/2021 Refused Social History Tobacco Use: Social History [...] Problem Status W/U Status Risk Notes Problem 60419184 Lymphocytosis (D72.820) Active confirmed Problem 184097344 Tubular adenoma (D36.9) Active confirmed Problem 752396634 Diverticulitis (K57.92) Active confirmed Problem 5387036 Diverticulitis o f large intestine without perforation or abscess without bleeding (K57.32) Active confirmed Problem 9986499 Arthritis (M19.90) Active confirmed Problem 38855514 Intrinsic eczema (L20.84) Active confirmed Problem 68723009 Eczema, unspecif ied type (L30.9) Active confirmed Problem 465045361 Leukocytosis, unspecified type (D72.829) Active confirmed Problem 79454792 Dysthymia (F34.1) Active confirmed Problem 273478635 Vaginal bleeding (N93.9) Active confirmed Problem 033460576 Abnormal mammogr am of right breast (R92.8) Active confirmed Problem 19404480 Peptic ulcer disease (K27.9) Active confirmed Problem 897091895 Type 2 diabetes mellitus without complication, without long-term current use of insulin (E11.9) Active confirmed Problem 244617324 Mild intermitten t asthmatic bronchitis with acute exacerbation (J45.21) Active confirmed Vital Signs Blood pressure diastolic 84 mm Hg 05/31/2025 Height 62.5 in 05/31/2025 Blood pressure systolic 122 mm Hg 05/31/2025 Weight 182 lbs 05/31/2025 BMI 32.75 kg/m2 05/31/2025 Encounters Encounter Location Date Provider Diagnosis Ned Son MD [address] [place] [address] [address] [place], [place] [phone] 10/20/2024 Ned Son Blood tests for routine general physical examination Z00.00 ; Leukocytosis, unspecified type D72.829 and Type 2 diabetes mellitus without complication, without long-term current use of insulin E11.9 Ned Son MD [address] [place] [id number] 10/24/2024 Ned Son Type 2 diabetes mellitus without complication, without long-term current use of insulin E11.9 ; Mild intermittent asthmatic bronchitis with acute exacerbation J45.21 ; Arthritis M19.90 and Depression screening Z13.31 Ned Son MD [address] [place] [id number] 04/30/2025 Ned Son Type 2 diabetes mellitus without complication, without long-term current use of insulin E11.[address] [place] [id number] 05/31/2025 Ned Son Type 2 diabetes mellitus without complication, without long-term current use of insulin E11.9 and Tendonitis M77.[address] [place] [id number] 06/23/2024 Ned Son MD [address] [place] [id number] 06/01/2025 Ned Son MD [address] [id number] 06/04/2025 Ned Son MD [address] [id number] 06/05/2025 Ned Son MD [address] [id number] 06/05/2025 Ned Son Tendonitis M77.[address] Ned Son MD [address] [place] [id number] 06/12/2025 Ned Son Tendonitis M77.9 Assessments Encounter Date Diagnosis (ICD Code) Assessment Notes Treatment Notes Treatment Clinical Notes Section Notes 10/20/2024 Blood tests for routine general physical examination (ICD-10 - Z00.00) 10/20/2024 Leukocytosis, unspecified type (ICD-10 - D72.829) 10/24/2024 Type 2 diabetes mellitus without complication, [...] - J45.21) uses inhaler in the morning 04/30/2025 Type 2 diabetes mellitus without complication, without long-term current use of insulin (ICD-10 - E11.9) has not been on diet. is going to start dieting. 05/31/2025 Type 2 diabetes mellitus without complication, without long-term current use of insulin (ICD-10 - E11.9) stable, will continue current regiment 05/31/2025 Tendonitis (ICD-10 - M77.9) patient verbalized understanding of medication and direction for use 06/05/2025 Tendonitis (ICD-10 - M77.9) 06/12/2025 Tendonitis (ICD-10 - M77.9) 10/20/2024 Type 2 diabetes mellitus without complication, without long-term current use of insulin (ICD-10 - E11.9) 10/24/2024 Arthritis (ICD-10 - M19.90) stable, will continue current regiment 10/24/2024 Depression screening (ICD-10 - Z13.31) negative screen Plan Of Treatment Pending Test Test Name Order Date Electrocardiogram (EKG) 08/25/2018 Electrocardiogram (EKG) 09/07/2019 MAMMOGRAM DIGITAL BILATERAL DIAGNO 02/05 US BREAST LEFT 02/05/2023 Next Appt Details Provider Name:Ned byrnes, 10/22/2025 08:00:00 AM, [address] [place] [address], [address], [place], [place], [phone], Provider Name:Ned byrnes, 10/29/2025 02:30:00 PM, [address] [place] [address], [address], [place], [place], [phone], Insurance Providers Payer Name Payer Address Payer Phone Subscriber Number Group Number Insured Name Patient Relationship to Insured Coverage Start Date Coverage End Date [employer] [address] [place], [place] [id number] [phone] [id number] Mary Cady Self - patient is the insured [facility] [address] [place] [address] [phone] [id number] MaryCady Self - patient is the insured Medical (General) History Medical History History ICD Code Colonoscopy with Dr Bai repeat in 5 years (2023)04/28/24 repeat 10 years
== END 2025-06-20 08:07 | disposition home or self-care (01) ==
LOC: HO.HOSX 08:06
DX: S63.610D Unspecified sprain of right index finger, subsequent encounter (principal); R20.0 Anesthesia of skin; R20.2 Paresthesia of skin; X58.XXXD Exposure to other specified factors, subsequent encounter
CPT/HCPCS: 73130

== ENCOUNTER 2025-06-20 09:37 | Outpatient (AMB) | payer BC, SELFPAY ==
--- NOTE | 2025-06-20 09:44 | A.OFFVIS_ITS ---
Vital Signs 06/20/25 09:58 Height 5 ft 3 in Weight 182 lb BMI 32.2 Handedness Right Intake Visit Reasons: ED f/u- sprain of Right IF, DOI: 05/31/25 Intake Note: Cady is a 54 year old right hand dominant female, new patient, who presents today for an ED follow up and evaluation of a Right Index Finger Sprain, DOI: 05/31/25. Patient presented to [facility] ED on 06/01/25 reported her finger began to hurt with movement. Denies numbness or tingling. At the ED she was given a finger splint to be worn for 1 week and advised to take Ibuprofen or Tylenol PRN. She reports shooting, stabbing, burning pain the day before she went to the ED. The day before she says her symptoms resolved on their own however the next day they returned and were unbearable. She says she has extreme swelling with her pain. Denies any injury or trauma. 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 She took of f 3 weeks for her finger and says she thinks its getting better with rest however some swelling and pain remains. Her palmar wrist is tender with palpation and sending a shooting pain up the right index finger. She reports pain in the web area of her right thumb into the index finger. She does repetitive pinching, grabbing, and pushing motions with her hands at work. At home she says she feels pain with even brushing her hair. Hx of Type 2 DM. Allergies codeine (Codeine) Adverse Reaction (Unknown, Verified 06/20/25 09:56) Nausea and Vomiting HPI [facility] ED f/u- sprain of Right IF, DOI: 05/31/25: Details: Cady is a 54 year old right hand dominant female, new patient, who presents today for an ED follow up and evaluation of a Right Index Finger Sprain, DOI: 05/31/25. Patient presented to [facility] ED on 06/01/25 reported her finger began to hurt with movement. Denies numbness or tingling. At the ED she was given a finger splint to be worn for 1 week and advised to take Ibuprofen or Tylenol PRN. She reports shooting, stabbing, burning pain the day before she went to the ED. The day before she says her symptoms resolved on their own however the next day they returned and were unbearable. She says she had extreme swelling with her pain. Denies any injury or trauma. 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 She took off 3 weeks for her finger and says she thinks its getting better with rest h owever some swelling and pain remains. Her palmar wrist is tender with palpation and sending a shooting pain up the right index finger. She reports pain in the web area of her right thumb into the index finger. She does repetitive pinching, grabbing, and pushing motions with her hands at work. At home she says she feels pain with even brushing her hair, has been unable to do this previously, but is able to tolerate it now. Of note, patient does report significant numbness and tingling that is intermittent in the right thumb and index finger. Hx of Type 2 DM. [facility] Medical History Diabetes Surgical History History of endometrial ablation Hx of tubal ligation H/O colonoscopy Social History (Updated 06/20/25 @ 09:57 by JOSE Lui) Household Members: Spouse Patient Tobacco Use Status: Former Tobacco user Current occupational status: employed Current occupation: right handed Physical Exam Vital Signs: BMI result Body Mass Index 32.2 Extrem Other: Patient is alert, oriented, and in no acute distress. Neuro: Normal sensation of the tips of all digits of the right hand at this time Vascular: Cap refill brisk Pain: Mild tenderness to palpation of the 1st webspace of the right hand Very mild tenderness to palpation of the right index finger ROM: Patient is able to make a closed fist with encouragement, can extend all digits of the right hand without difficulty Skin: No lacerations or abrasions. General: No ecchymosis, erythema, or evidence of infection. Psych: Appears grossly normal Affect normal Attitude cooperative Assessment & Plan Assessment & Plan (1) Numbness and tingling of right hand: Code(s): R20.0 - Anesthesia of skin; R20.2 - Paresthesia of skin Category: Medical (2) Finger sprain: Code(s): S63.619A - Unspecified sprain of unspecified finger, initial encounter Category: Medical Qualifiers: Encounter type: initial encounter Finger: index finger Laterality: right Sprain of finger site: unspecified site Qualified Code(s): S63.610A - Unspecified sprain of right index finger, initial encounter Plan 1. Flexor tendon strain of right index finger 2. Numbness and tingling of right hand Patient is educated about these conditions Patient is educated about the typical treatment course At this time, patient is offered an injection into the flexor tendon, as I feel she may have a pre trigger flexor tenosynovitis of the right index finger, but declines Patient has also ordered an EMG and nerve conduction study to assess the health of the nerves of the right upper extremity due to ongoing numbness and tingling Patient understands this is amenable to this plan Follow-up after EMG and nerve conduction study, sooner with any acute concerns Orders: Orders XR hand RT min 3V 06/20/25 M79.641 - Pain in right hand NE nerve conduction velocity 06/20/25 R20.0 - Anesthesia of skin, R20.2 - Paresthesia of skin NE electromyogram (EMG) 06/20/25 R20.0 - Anesthesia of skin, R20.2 - Paresthesia of skin Coding Level of Care Code New Pt Level 3 (82670) Diagnoses Numbness and tingling of right hand R20.0; R20.2 Finger sprain S63.610A Encounter type: initial encounter Finger: index finger Laterality: right Sprain of finger site: unspecified site
[2025-06-20 09:58] VITALS: BMI 32.2
== END 2025-06-20 10:13 | disposition home or self-care (01) ==
LOC: HO.HOS 09:38
PROVIDERS: PCP Internal Medicine
DX: R20.0 Anesthesia of skin (principal); R20.2 Paresthesia of skin; S63.610A Unspecified sprain of right index finger, initial encounter
CPT/HCPCS: 99203

== ENCOUNTER → 2025-06-20 09:42 | Outpatient (BNV) | payer BC, SELFPAY | PROVIDERS: Visit Provider Radiology Diagnostic Radiology | DX: M19.041 Primary osteoarthritis, right hand (principal) | CPT/HCPCS: 73130 ==

== ENCOUNTER 2025-08-10 09:29 | Outpatient (REF) | payer BC, SELFPAY ==
--- OUTSIDE RECORDS SUMMARY | 2024-04-28 06:50 | XMS_ITS ---
Author Organization [facility] Address [address] [place] [phone] Care Team Providers Care Timber Bucker Name Role Phone Ned Son MD Primary Care Provider Chalo Myers Jr, Constantin Marcano [phone] REASON FOR VISIT colon cancer screening Problems Problem Type SNOMED Code ICD Code Onset Dates Problem Status W/U Status Risk Notes Problem Information temporarily unavailable Personal history of colonic polyps (Z86.010) Active confirmed Encounters Encounter Location Date Provider [place] [facility] [place] [address] [place] [phone] 04/28/2024 Constantin Myers Jr Encounter for screening colonoscopy Z12.11 and Personal history of colonic polyps Z86.010 Assessments Encounter Date Diagnosis (ICD Code) Assessment Notes Treatment Notes Treatment Clinical Notes Section Notes 04/28/2024 Encounter for screening colonoscopy (ICD-10 - Z12.11) 04/28/2024 Personal history of colonic polyps (ICD-10 - Z86.010) Plan Of Treatment No Information Progress Notes * AARON NUNEZ LDOB:1970 (54 yo F)Acc No.[id number]:04/28/2024 COLON WITH MAC Patient: AARON HITCHCOCK Provider: Lo Myers MD :1970 A ge:53 Y S ex:Female Date:04/28/2024 Address:[address] [place], [place] [phone] Pcp:Ned Son MD Subjective: * Chief Complaints: [...] 0 04/28/2024 Generated for Carlyn law/Sivakumar/Dagmaritting on: 1 10:28 AM EDT
--- OUTSIDE RECORDS SUMMARY | 2024-06-23 07:38 | XMS_ITS ---
Author Organization Ned Son MD Address [address] [facility] [address] [place] [phone] Care Team Providers Care Propagator Laborer Name Role Phone Ned Son Primary Care Provider REASON FOR VISIT ? sinus infection Encounters Encounter Location Date Provider Diagnosis Ned Son MD [address] [facility] [address] [place] [phone] 06/23/2024 Ned Son Plan Of Treatment Next Appt Details Provider Name:Ned byrnes, 10/22/2025 08:00:00 AM, [address] [place] [address], [address], [phone], Provider Name:Ned byrnes, 10/29/2025 02:30:00 PM, [address] [place] [address], [address], [phone], Progress Notes * Carlyle NUNEZB:1970 ( 53 yo F)Acc No.[id number]:06/23/2024 Patient: Cady Russell :1970 A ge:53 Y S ex:Female Address:[address] [place] [address] * true * Date: Generated for Printi ng/Faxing/eTransmitting on: 10:27 AM EDT
--- OUTSIDE RECORDS SUMMARY | 2024-10-20 03:15 | XMS_ITS ---
Author Organization Ned Son MD Address [address] [place], [place] [id number] Care Team Providers Care Steamblaster Name Role Phone Ned Son Primary Care Provider Results Component Value Reference Range Notes Complete Blood Count Auto Di ff Reviewed date:10/20/2024 12:28:17 PM Interpretation: Performing Lab:[facility], [address] [place] [phone] Notes/Report: White Blood Count 7.1 4.8-10.8 X10*3/uL [...] NRBC Abs Auto 0.000 0.0-0.012 X10*3/uL Comprehensive [place]. Panel Fa st Reviewed date:10/20/2024 12:47:33 PM Interpretation: Performing Lab:[address] [phone] Notes/Report: Sodium 138 135-145 mmol/L Potassium 4.2 [...] Panel Reviewed date:10/20/2024 12:47:17 PM Interpretation: Performing Lab:[facility], [address] [place] [phone] Notes/Report: Triglycerides 83 <150 mg/dL Slight Lipemia. [...] Random Reviewed date:10/20/2024 12:19:30 PM Interpretation: Performing Lab:[address] [phone] Notes/Report: Creatinine Urine 47.42 Microalbumin Urine 20.0 Microalbum/Creatinine Ratio Ur 42.1 <30 ug/mg cr Albumin/Creatinine Ratio Reference Ranges: Normal: < 30 ug/mg creatinine Microalbuminuria: 30 - 300 ug/mg creatinine Clinical Albuminuria: > 300 ug/mg creatinine Hemoglobin A1c Reviewed date:10/20/2024 12:20:05 PM Interpretation: Performing Lab:[address] [phone] Notes/Report: Hemoglobin A1c % 6.3 <6.0 % [...] average glucose, using the formula of the P1Z-Izguypk Average Glucose study (ADAG), Diabetes Care, Vol.31,#8, May. 2007 UA ClnCatch+Micro w/rflx Cul t Reviewed date:10/20/2024 12:31:15 PM Interpretation: Performing Lab:[facility], [address] [place] [phone] Notes/Report: Urine, Clean Catch Color Urine Yellow Appearance Urine Clear PH 7.0 5.0-9.0 Glucose Urine UA Negative Negative mg/dL Urine Blood Negative Negative Specific [place] - Urine 1.015 1.005-1.025 Urine Protein Negative [...] Location Date Provider Diagnosis Ned Son MD [address] [place] [phone] 10/20/2024 Ned Son Blood tests for routine [...] Details Provider Name:Ned byrnes, 10/22/2025 08:00:00 AM, [address] [place] [address], [address], [phone], Provider Name:Ned byrnes, 10/29/2025 02:30:00 PM, [address] [place] [address], [address], [phone], Progress Notes * eTrry NUNEZ:1970 ( 54 yo F)Acc No.[id number]:10/20/2024 Progress Note Patient: Cady HITCHCOCK Provider: Khalida Son MD :1970 A ge:53 Y S ex:Female Date:10/20/2024 Address: [address], [place], [facility] Subjective: * Chief Complaints: * 1 . [...] - 10/20/2024 07:15 AM) L AB: Comprehensive [place]. Panel Fast (Collection Date & Time - [...] - 10/20/2024 07:15 AM) L AB: Comprehensive [place]. Panel Fast (Collection Date & Time - [...] 0 10/20/2024 Generated for Carlyn law/Sivakumar/Haley on: 10:27 AM EDT
--- OUTSIDE RECORDS SUMMARY | 2024-10-24 10:30 | XMS_ITS ---
Author Organization Ned Son MD Address [address] [place], [place] [phone] Care Team Providers Care Lump Receiver Name Role Phone Ned Son Primary Care Provider [phone] Allergies Allergen (clinical drug ingredient) Drug/Non Drug Allergy documented on EMR Reaction Allergy Type Onset Date Status Information temporarily unavailable Codeine Phosphate vomiting Drug Allergy Active REASON [...] 500 MG TAKE 1 TABLET BY MO [facility] TWICE A DAY WITH A MEAL [...] kg/m2 10/24/2024 weight is down 3 pounds [facility] nichol 03-09-24 Encounters Encounter Location Date Provider Diagnosis Ned Son MD [address] [place] [address] [address] [place], [place] [phone] 10/24/2024 Ned Son Type 2 diabetes mellitus [...] Follow Up: 6 Months, Reason: Provider Name:Ned byrnes, 10/22/2025 08:00:00 AM, [address] [facility], [address], [place], [place], [phone], Provider Name:Ned byrnes, 10/29/2025 02:30:00 PM, [address] [facility], [address], [place], [place], [phone], Progress Notes * Tarik NUNEZaDOB:1970 ( 53 yo F)Acc No.[id number]:10/24/2024 Progress Notes Patient: Cady Russell Provider: Khalida Son MD :1970 A ge:53 Y S ex:Female Date:10/24/2024 Address: [address], [place], [id number] Subjective: * Chief Complaints: * A nnual [...] 1 LIZARD. no Travel outside of the [place]. * Medications: T akingAlbuterol Sulfate HFA [...] mg/dL Urine Blood Negative Negative - Specific [place] - Urine 1.015 1.005-1.025 - Urine Protein [...] Auto 0.000 0.0-0.012 - X10*3/uL L ab:Comprehensive [place]. Panel Fast (Order Date - 10/20/2024) (Collection [...] to auscultation bilaterally. BREASTS: d one by office administration instructor. ABDOMEN: s oft, nontender, nondistended, bowel sounds present, normal, no organomegaly , no masses palpable. RECTAL EXAM: d one by office administration instructor. FEMALE GENITOURINARY: d one by office administration instructor. EXTREMITIES: n o clubbing, cyanosis, or edema. [...] MD Date: 0 10/24/2024 Generated for Carlyn law/Sivakumar/Dagmaritting on: 10:27 AM EDT History and Physical Notes * HPI (History [...] cyanosi s, or edema BREASTS: done by office administration instructor RECTAL EXAM: done by office administration instructor FEMALE GENITOURINARY: done by office administration instructor ORAL CAVITY: mucosa moist
--- OUTSIDE RECORDS SUMMARY | 2025-04-30 11:15 | XMS_ITS ---
Author Organization Ned Son MD Address [address] [place], [place] [id number] Care Team Providers Care Project Scientist Name Role Phone Ned Son Primary Care Provider Allergies Allergen (clinical drug ingredient) Drug/Non Drug Allergy documented on EMR Reaction Allergy Type Onset Date Status Information temporarily unavailable Codeine Phosphate vomiting Drug Allergy Active Results [...] 500 MG TAKE 1 TABLET BY MO [facility] TWICE A DAY WITH A [...] Location Date Provider Diagnosis Ned Son MD [address] [place] [address] [place] [phone] 04/30/2025 Ned Son Type 2 diabetes mellitus [...] Details Provider Name:Ned byrnes, 10/22/2025 08:00:00 AM, [address] [place] [address], [place] [address], [place], [place], [phone], Provider Name:Ned byrnes, 10/29/2025 02:30:00 PM, [address] [place] [address], [place] [address], [place], [place], [phone], Progress Notes * Carlyle NUNEZB:1970 ( 54 yo F)Acc No.[id number]:04/30/2025 Progress Notes Patient: Cady HITCHCOCK Provider: Khalida Son MD :1970 A ge:54 Y S ex:Female Date:04/30/2025 Address[facility] [address] Subjective: * Chief Complaints: * 6 months * HPI: S ymptom(s): patient is a 54 yo female here for 6 mnth follow up visit. * ROS: G eneral/Constitutional: Denies Migel hills. D enies F atigue. D enies F ever. D enies H eadache. E NT: Denies S ore throat. E ndocrine: Denies Abena ifficulty sleeping. A dmits D izziness.?Denies E xcessive sweating. D enies E xcessive thirst. A dmits F requent urination. R espiratory: Helen Lainez ough. D enies S hortness of breath at rest. D enies S hortness of breath with exertion. G astrointestinal: Denies Abena iarrhea. D enies N ausea. * Medical [...] 2947 ASSAY, GLUCOSE, BLOOD QUANT, Modifiers: QW 58895 GLYCATED HEMOGLOBIN TEST, Modifiers: QW * * Sign off status: Completed true * Provider: Khalida Son MD Date: 0 04/30/2025 Generated for Carlyn law/Sivakumar/eTransmitting on: 1 10:28 AM EDT History and Physical Notes * [...]
--- OUTSIDE RECORDS SUMMARY | 2025-05-31 10:15 | XMS_ITS ---
Author Organization Ned Son MD Address [address] [place], [place] [phone] Care Team Providers Care Stakes Player Name Role Phone Ned Son Primary Care [...] a day for 7 days 05/31/2025 Active OneTouch Ultra Test - USE DIRECTED TW [...] 500 MG TAKE 1 TABLET BY MO [facility] TWICE A DAY WITH [...] Date Provider Diagnosis Ned Son MD [address] [place] [phone] 05/31/2025 Ned Son Type 2 diabetes mellitus [...] HCl 500 MG TAKE [address] [facility] TWICE A DAY WITH A MEAL FOR 30 DAYS Treatment Notes Assessment Notes Type 2 diabetes mellitus wit hout complication, without long-term current use of insulin stable, will continue current regiment Tendonitis patient verbalized u nderstanding of medication and direction for use Next Appt Details Follow Up: 1 Week, Reason: Provider Name:Ned byrnes, 10/22/2025 08:00:00 AM, [address] [place] [address], [place] [address], [place], [place], [phone], Provider Name:Ned byrnes, 10/29/2025 02:30:00 PM, [address] [place] [address], [place] [address], [place], [place], [phone], Progress Notes * Terry NUNEZ:1970 ( 54 yo F)Acc No.[id number]:05/31/2025 Progress Notes Patient: Cady HITCHCOCK Provider: Khalida Son MD :1970 A ge:54 Y S ex:Female Date:05/31/2025 Address: [address], [place], [facility] Subjective: * Chief Complaints: * R ight [...] MD Date: 0 05/31/2025 Generated for Carlyn law/Sivakumar/Dagmaritting on: 1 10:27 AM EDT History and Physical Notes [...]
--- OUTSIDE RECORDS SUMMARY | 2025-06-01 10:14 | XMS_ITS ---
Author Organization Ned Son MD Address 10 [facility] [address] [place] [phone] Care Team Providers Care Residence Leasing Agent Name Role Phone Ned Son Primary Care Provider [phone] REASON FOR VISIT hand pain Encounters Encounter Location Date Provider Diagnosis Ned Son MD [address] [facility] [address] [place] [phone] 06/01/2025 Ned Son Plan Of Treatment Next Appt Details Provider Name:Ned byrnes, 10/22/2025 08:00:00 AM, [address] [place] [address], [address], [phone], Provider Name:Ned byrnes, 10/29/2025 02:30:00 PM, [address] [place] [address], [address], [phone], Progress Notes * Terry NUNEZ:1970 ( 54 yo F)Acc No.[id number]:06/01/2025 Patient: Cady HITCHCOCK :1970 A ge:54 Y S ex:Female Address:[address] [place] [address] * true * Date: Generated for Printi ng/Faxing/eTransmitting on: 10:28 AM EDT
--- OUTSIDE RECORDS SUMMARY | 2025-06-04 07:29 | XMS_ITS ---
Author Organization Ned Son MD Address [address] [place], [place] [phone] Care Team Providers Care Auger Machine Offbearer Name Role Phone Ned Son Primary Care Provider Reason For Referral Reason right hand pain [facility] ER report and x-rays will be faxed [...] MD [address] [place], [place] [phone] 06/04/2025 Ned Son Plan Of Treatment Referrals Referral Date Details 06/04/2025 06/04/2025, right hicks nd [place] [facility] [place] report and x-rays will be faxed, [place] [place] Appt Details Provider Name:Ned byrnes, 10/22/2025 08:00:00 AM, [address], [address], [place], [place], [phone], Provider Name:Ned byrnes, 10/29/2025 02:30:00 PM, [address], [address], [place], [phone], Progress Notes * Tarik NUNEZAdrielB:1970 ( 54 yo F)Acc No.[id number]:06/04/2025 Patient: Cady HITCHCOCK :1970 A ge:54 Y S ex:Female Address: [address], [place], [place] [address] Subjective: * Chief Complaints: * R t hand pain * Medical History: * Surgical History: * Hospitalization/Major Diagno stic Procedure: * Medications: Objective: * Vitals: * Physical Examination: Assessment: Plan: * Treatment: * Procedure Codes: * true * Date: Generated for Printi ng/Faxing/eTransmitting on: 10:28 AM EDT Consultation Request Notes Referral Date Referring Provider Referred Provider Not es 06/04/2025 Ned Son Allison right hand pain [facility] [place] report and x-rays will be faxed
--- OUTSIDE RECORDS SUMMARY | 2025-06-05 05:15 | XMS_ITS ---
Author Organization Ned Son MD Address 10 [facility] [address] [place] [phone] Care Team Providers Care Rail Filler Name Role Phone Ned Son Primary Care Provider [phone] REASON FOR VISIT ER Encounters Encounter Location Date Provider Diagnosis Ned Son MD 10 [facility] [address] [place] [phone] 06/05/2025 Ned Son Plan Of Treatment Next Appt Details Provider Name:Ned byrnes, 10/22/2025 08:00:00 AM, [address] [place] [address], [address], [phone], Provider Name:Ned byrnes, 10/29/2025 02:30:00 PM, [address] [place] [address], [address], [phone], Progress Notes * Carlyle NUNEZB:1970 ( 54 yo F)Acc No.[id number]:06/05/2025 Patient: Cady HITCHCOCK :1970 A ge:54 Y S ex:Female Address:[address] [place] [address] * true * Date: Generated for Printi ng/Faxing/eTransmitting on: 1 10:29 AM EDT
--- OUTSIDE RECORDS SUMMARY | 2025-06-05 07:34 | XMS_ITS ---
Author Organization Ned Son MD Address [address] [place] [phone] Care Team Providers Care Billing Representative Name Role Phone Ned Son Primary Care [...] Date Provider Diagnosis Ned Son MD [address] [facility] [address] [place] [phone] 06/05/2025 Ned Son Tendonitis M77.9 Assessments Encounter [...] Provider Name:Ned byrnes, 10/22/2025 08:00:00 AM, [address] [facility], Suite [facility], [place], [place], [phone], Provider Name:Ned Williamson davidr, 10/29/2025 02:30:00 PM, [address], [address], [place], [place], [phone], Progress Notes * Terry NUNEZ:1970 ( 54 yo F)Acc No.[id number]:06/05/2025 Patient: Cady HITCHCOCK :1970 A ge:54 Y S ex:Female Address: [address], [place] [address] * Refills Continue predniSONE Tablet, 20 MG, Orally, 7 Tablet, 1 tablet with food or milk, Once a day, 7 days Start Cyclobenzaprine HCl Tablet, 10 MG, Orally, 10 Tablet, 1 tablet at bedtime as needed, Once a day, 10 days * true * Date: Generated for Carlyn law/Sivakumar/Dagmaritting on: 10:28 AM EDT
--- OUTSIDE RECORDS SUMMARY | 2025-06-12 10:08 | XMS_ITS ---
Author Organization Ned Son MD Address [address] [place] [phone] Care Team Providers Care Director Compensation Name Role Phone Nde Son Primary Care Provider [phone] REASON FOR VISIT Prednisone Medications Medication SIG (Take, Route, Fr equency, Duration) Notes Start Date End Date Status predniSONE 20 MG 1 tablet with food o r milk Orally Once a day for 7 days 05/31/2025 Active Encounters Encounter Location Date Provider Diagnosis Ned Son MD [address] [facility] [address] [place] [phone] 06/12/2025 Ned Son Tendonitis M77.9 Assessments Encounter [...] Details Provider Name:Ned byrnes, 10/22/2025 08:00:00 AM, [address] [place] [address], [address], [phone], Provider Name:Ned byrnes, 10/29/2025 02:30:00 PM, [address] [place] [address], [address], [phone], Progress Notes * Terry NUNEZ:1970 ( 54 yo F)Acc No.[id number]:06/12/2025 Patient: Cady HITCHCOCK :1970 A ge:54 Y S ex:Female Address: [address], [place] [address] * Refills Refill predniSONE Tablet, 20 MG, Orally, 7 Tablet, 1 tablet with food or milk, Once a day, 7 days * true * Date: Generated for Carlyn law/Sivakumar/Ivysmitting on: 1 10:28 AM EDT
--- NOTE | ~2025-08-10 | MM_ITS ---
EXAMINATION: MM SCREENING DIGITAL BREAST TOMOSYNTHESIS, BILATERAL CLINICAL INFORMATION: Screening. Asymptomatic. COMPARISON: Mammography: Comparison is made with available priors TECHNIQUE: Digital breast mammography with tomosynthesis is performed in both the craniocaudal and mediolateral oblique views along with computer-aided detection (CAD). FINDINGS: The breasts are heterogeneously dense, which may obscure small masses. Left marker clip. Bilateral scattered asymmetries are stable. There are no significant masses, abnormal calcifications, or other abnormalities. MM/MM tomosynthesis screening BI IMPRESSION: No mammographic evidence of malignancy. ASSESSMENT: BI-RADS Category 2: Benign RECOMMENDATION: Routine annual mammography screening. 1 year F/U This examination should not preclude the clinical evaluation of a suspicious palpable abnormality. This patient's information was entered into a reminder system with a target due date for their next mammogram. Electronically signed by: Susy Love DO 08/13/2025 04:56 PM EDT
--- OUTSIDE RECORDS SUMMARY | 2025-08-10 10:28 | XMS_ITS | Patient Health Record ---
Author Organization Ned Son MD Address [address] [place], [place] [id number] Care Team Providers Care Emts Name Role Phone Ned Son Primary Care [...] ff Reviewed date:10/20/2024 12:28:17 PM Interpretation: Performing Lab:[facility], [address] [place] [place] [phone] Notes/Report: White Blood Count 7.1 4.8-10.8 X10*3/uL [...] NRBC Abs Auto 0.000 0.0-0.012 X10*3/uL Comprehensive [place]. Panel Fa st Reviewed date:10/20/2024 12:47:33 PM Interpretation: Performing Lab:[facility], [address] [place] [phone] Notes/Report: Sodium 138 135-145 mmol/L Potassium 4.2 [...] Panel Reviewed date:10/20/2024 12:47:17 PM Interpretation: Performing Lab:[facility], [address] [place] [phone] Notes/Report: Triglycerides 83 <150 mg/dL Slight Lipemia. [...] Random Reviewed date:10/20/2024 12:19:30 PM Interpretation: Performing Lab:[facility], [address] [place] [phone] Notes/Report: Creatinine Urine 47.42 Microalbumin Urine 20.0 Microalbum/Creatinine Ratio Ur 42.1 <30 ug/mg cr Albumin/Creatinine Ratio Reference Ranges: Normal: < 30 ug/mg creatinine Microalbuminuria: 30 - 300 ug/mg creatinine Clinical Albuminuria: > 300 ug/mg creatinine Hemoglobin A1c Reviewed date:10/20/2024 12:20:05 PM Interpretation: Performing Lab:[facility], [address] [place] [phone] Notes/Report: Hemoglobin A1c % 6.3 <6.0 % [...] average glucose, using the formula of the R1Q-Bnqlrbw Average Glucose study (ADAG), Diabetes Care, Vol.31,#8, 2007 UA ClnCatch+Micro w/rflx Cul t Reviewed date:10/20/2024 12:31:15 PM Interpretation: Performing Lab:[address] [phone] Notes/Report: Urine, Clean Catch Color Urine Yellow Appearance Urine Clear PH 7.0 5.0-9.0 Glucose Urine UA Negative Negative mg/dL Urine Blood Negative Negative Specific [place] - Urine 1.015 1.005-1.025 Urine Protein Negative [...] PM Interpretation: Performing Lab: Notes/Report: Value 145 Urine Culture Reviewed date:10/22/2024 06:22:24 PM Interpretation: Performing Lab:[address] [phone] Notes/Report: Urine Culture Report Result Urine Culture > 100,000 cfu/ml Urine Culture Mixed bacterial veronica a characteristic of Urine Culture urogenital contamination. T Spot TB Reviewed date:05/07/2025 07:28:01 PM Interpretation: Performing Lab:[address] [phone] Notes/Report: TSpotTB Negative Negative A negative test [...] Passed For additional information, please refer to http://education.[employer]/faq/FA Q215 (This link is being provided for informational/ educational purposes only.) THIS TEST WAS PERFORMED AT: [facility]/[address] [address] PANKAJ SUMMERS MD,PHD XR hand RT min 3V Reviewed date:06/01/2025 04:10:42 PM Interpretation: Performing Lab: Notes/Report: [address] [address] XRay Report Signed Patient: Cady Hernandez MR#: [id number] 8 : 1970 Acct:[id number] Age/Sex: 54 / F ADM Date: 06/01/25 Loc: HO.ED Attending Dr: Ordering Physician: Libia Daley NP Date of Service: 06/01/25 Procedure(s): XR hand RT min 3V Accession Number(s): [id number] cc: Ned Son MD; Libia Daley NP [...] Jaiden Multani MD 06/01/2025 03:56 PM EDT Dictated By: Jaiden Elaine MD Signed By: <Electronically signed by Jaiden Hargrove MD in OV> 06/01/25 1556 DD/ 1436 TD/TT: 06/01/25 1539 Facility Maintenance Supervisor: [address] [address] XRay Report Signed Patient: Cady Hernandez MR#: [id number] [birth year] : 1970 Acct:[id number] Age/Sex: 54 / F ADM Date: 06/01/25 Loc: HO.ED Attending Dr: Ordering Physician: Libia Daley NP Date of Service: 06/01/25 Procedure(s): XR garcias d RT min 3V Accession Number(s): [id number] cc: Ned Son MD; Libia Daley NP [...] 06/01/25 1556 DD/ 1436 TD/TT: 06/01/25 1539 Facility Maintenance Supervisor: XR wrist RT min 3V Reviewed date:06/01/2025 04:19:07 PM Interpretation: Performing Lab: Notes/Report: [address] [address] XRay Report Signed Patient: Cady Hernandez MR#: [id number] 8 : 1970 Acct:[id number] Age/Sex: 54 / F ADM Date: 06/01/25 Loc: HO.ED Attending Dr: Ordering Physician: Libia Daley NP Date of Service: 06/01/25 Procedure(s): XR wrist RT min 3V Accession Number(s): [id number] cc: Ned Son MD; Libia Daley NP [...] Hargrove MD in OV> 06/01/25 1555 DD/ 1437 TD/TT: 06/01/25 1539 Facility Maintenance Supervisor: [place] [address] XRay Report Signed Patient: Cady Hernandez MR#: [id number] 8 : 1970 Acct:[id number] Age/Sex: 54 / F ADM Date: 06/01/25 Loc: HO.ED Attending Dr: Ordering Physician: Libia Daley NP Date of Service: 06/01/25 Procedure(s): XR wri st RT min 3V Accession Number(s): [id number] cc: Ned Son MD; Libia Daley NP [...] Hargrove MD in OV> 06/01/25 1555 DD/ 1437 TD/TT: 06/01/25 1539 Facility Maintenance Supervisor: Reason For Referral Reason right hand [...] Coco Simpson 0 06/04/2025 01:07:39 PM >info faxedCalvin Annette 06/05/2025 11:28:25 AM >patient is aware of [...] Problem Status W/U Status Risk Notes Problem 14154521 Lymphocytosis (D72.820) Active confirmed Problem 555924856 Tubular adenoma (D36.9) Active confirmed Problem 786401066 Diverticulitis (K57.92) Active confirmed Problem 0907362 Diverticulitis o f large intestine without perforation or abscess without bleeding (K57.32) Active confirmed Problem 9628923 Arthritis (M19.90) Active confirmed Problem 00909084 Intrinsic eczema (L20.84) Active confirmed Problem 79323201 Eczema, unspecif ied type (L30.9) Active confirmed Problem 674575655 Leukocytosis, unspecified type (D72.829) Active confirmed Problem 47097719 Dysthymia (F34.1) Active confirmed Problem 616274182 Vaginal bleeding (N93.9) Active confirmed Problem 090867263 Abnormal mammogr am of right breast (R92.8) Active confirmed Problem 65398873 Peptic ulcer disease (K27.9) Active confirmed Problem 545652358 Type 2 diabetes mellitus without complication, without long-term current use of insulin (E11.9) Active confirmed Problem 979047263 Mild intermitten t asthmatic bronchitis with acute exacerbation (J45.21) Active confirmed Vital Signs Blood pressure diastolic 84 mm Hg 05/31/2025 Height 62.5 in 05/31/2025 Blood pressure systolic 122 mm Hg 05/31/2025 Weight 182 lbs 05/31/2025 BMI 32.75 kg/m2 05/31/2025 Encounters Encounter Location Date Provider Diagnosis Ned Son MD [address] [place] [address] [id number] 10/20/2024 Ned Son Blood tests for routine general physical examination Z00.00 ; Leukocytosis, unspecified type D72.829 and Type 2 diabetes mellitus without complication, without long-term current use of insulin E11.9 Ned Son MD [address] [place] [address] [address] [id number] 10/24/2024 Ned Son Type 2 diabetes mellitus without complication, without long-term current use of insulin E11.9 ; Mild intermittent asthmatic bronchitis with acute exacerbation J45.21 ; Arthritis M19.90 and Depression screening Z13.31 Ned Son MD [address] [facility] [address] [id number] 04/30/2025 Ned Son Type 2 diabetes mellitus without complication, without long-term current use of insulin E11.9 Ned Son MD [address] [place] [id number] 05/31/2025 Ned Son Type 2 diabetes mellitus without complication, without long-term current use of insulin E11.9 and Tendonitis M77.9 Ned Son MD [address] [facility] [address] [id number] 06/01/2025 Ned Son MD [address] [place] [address] [address] [id number] 06/04/2025 Ned Son MD [address] [place] [address] [address] [id number] 06/05/2025 Ned Son MD [address] [place] [id number] 06/05/2025 Ned Agrawalarlen Tendonitis M77.9 Ned Son MD [address] [place] [address] [address] [place] [id number] 06/12/2025 Ned Son Tendonitis M77.9 Assessments Encounter [...] LEFT 02/05/2023 Next Appt Details Provider Name:Ned Williamson ier, 10/22/2025 08:00:00 AM, [address] [facility], [address], [place], [place], [phone], Provider Name:Ned Williamson ier, 10/29/2025 02:30:00 PM, [address] [facility], [address], [place], [place], [phone], Insurance Providers Payer Name Payer Address Payer Phone Subscriber Number Group Number Insured Name Patient Relationship to Insured Coverage Start Date Coverage End Date [employer] [address] [place], [place] [phone] [id number] Cady Hernandez Self - patient is the insured [facility] [address] [place] [address] [phone] [id number] Cady Hernandez Self - patient is the insured Medical (General) History Medical History History ICD Code Colonoscopy with Dr Bai repeat in 5 years (2023)04/28/24 repeat 10 years
--- OUTSIDE RECORDS SUMMARY | 2025-08-10 10:29 | XMS_ITS | Patient Health Record ---
Author Organization [facility] Address [address] [place] [address] Care Team Providers Care Power Shear Operator Name Role Phone Ned Son MD Primary Care Provider Constantin Andres Jr Unavailable Allergies Allergen (clinical drug ingredient) Drug/Non Drug Allergy documented on EMR Reaction Allergy Type Onset Date Status Information temporarily unavailable Codeine Unknown Drug Allergy Active Reason For Referral No Information Medications Medication SIG (Take, Route, Frequency, Duration) Notes Start Date End Date Status metFORMIN HCl 500 MG TAKE 1 TABLET BY MO [facility] TWICE A DAY WITH A MEAL FOR 30 DAYS Oral; Duration: 30 Active OneTouch Ultra Test - In Vitro; Duration: 25 Active Ibuprofen 800 MG TAKE 1 TABLET BY K[facility] THREE TIMES A DAY WITH FOOD OR MILK NEEDED FOR 30 DAYS Oral; Duration: 30 Activ e Albuterol Sulfate HFA 108 (90 Base) MCG/ACT Inhalation; Duration: 17 Active MiraLax (colon prep) 17 GM/SCOOP mixed with Gatorade or Crystal Light Orally begin at 5:00 p.m. the day before the procedure; Duration: 1 day 03/16/2024 Active Immunizations Vaccine Route [...] Status Risk Notes Problem Information temporarily unavailable Colon cancer screening (Z12.11) Active confirmed Problem Information temporarily unavailable Personal history of colonic polyps (Z86.010) Active confirmed Problem Information temporarily unavailable Encounter for other preprocedural examination (Z01.818) Active confirmed Problem Information temporarily unavailable Long-term current use of high risk medication other than anticoagulant (Z79.899) Active confirmed Plan Of Treatment Future Test Test Name Order Date COLONOSCOPY 03/16/2024 Insurance Providers Payer Name Payer Address Payer Phone Subscriber Number Group Number Insured Name Patient Relationship to Insured Coverage Start Date Coverage End Date [facility] [address] [place] [address] [phone] [id number] AARON NUNEZ Self - patient is the insured [place] [address] [place] [address] [phone] [id number] AARON NUNEZ Self - patient is the insured Medical (General) History Medical History History ICD Code Diabetes mellitus Colonoscopy 06/05, tubular adenoma, five- year followup Surgical History Surgery Date(Month/Year) Tubal ligation 2008 Uterine ablation 2014
== END 2025-08-10 09:30 | disposition home or self-care (01) ==
LOC: HO.MAMMO 09:29
PROVIDERS: PCP Internal Medicine; Visit Provider Internal Medicine
DX: Z12.31 Encounter for screening mammogram for malignant neoplasm of breast (principal)
CPT/HCPCS: 77063; 77067

== ENCOUNTER → 2025-08-10 09:45 | Outpatient (BNV) | payer BC, SELFPAY | PROVIDERS: PCP Internal Medicine; Visit Provider Internal Medicine | DX: Z12.31 Encounter for screening mammogram for malignant neoplasm of breast (principal) | CPT/HCPCS: 77063; 77067 ==

== ENCOUNTER 2025-08-23 13:50 | Outpatient (REF) | payer BC, SELFPAY ==
--- OUTSIDE RECORDS SUMMARY | 2024-04-28 05:50 | XMS_ITS ---
Author Organization [facility] Address [address] [place] [phone] Care Team Providers Care Market Research Senior Project Manager Name Role Phone Ned Son MD Primary Care Provider Constantin Andres Jr REASON FOR VISIT colon cancer screening Problems Problem Type SNOMED Code ICD Code Onset Dates Problem Status W/U Status Risk Notes Problem History of polyp of colon (situation) (544781262) Personal history of colonic polyps (Z86.010) Active confirmed Encounters Encounter Location Date Provider Diagnosis [facility] [place] [address] [place] [phone] 04/28/2024 Constantin Myers Jr Encounter for screening colonoscopy Z12.11 and Personal history of colonic polyps Z86.010 Assessments Encounter Date Diagnosis (ICD Code) Assessment Notes Treatment Notes Treatment Clinical Notes Section Notes 04/28/2024 Encounter for screening colonoscopy (ICD-10 - Z12.11) 04/28/2024 Personal history of colonic polyps (ICD-10 - Z86.010) Plan Of Treatment No Information Progress Notes * AARON NUNEZ LDOB:1970 (54 yo F)Acc No.[id number]:04/28/2024 COLON WITH MAC Patient: AARON HITCHCOCK Provider: Lo Myers MD :1970 A ge:53 Y S ex:Female Date:04/28/2024 Address:[address] [place], [place] [phone] Pcp:Ned Son MD Subjective: * Chief Complaints: * 1 . Colon cancer screening. * Medical History: Objective: * Vitals: Assessment: * Assessment: 1. E ncounter for screening colonoscopy - Z12.11 (Primary) 2 . P ersonal history of colonic polyps - Z86.010 Plan: * Treatment: * Procedure Codes: 4 5378 DIAGNOSTIC COLONOSCOPY * Preventive Medicine: YA Screening: C olonoscopy W as interval between colonoscopies three years or more? N o due to Medical Reason, W as last colonoscopy performed three or more years ago??No due to Medical Reason. * * The named appointment provid er may or may not be the originator of this progress note, and it is not deemed complete until electronically signed by the appointment provider. Sign off status: Pending * Provider: Lo Myers MD Date: 0 04/28/2024 Generated for Carlyn law/Sivakumar/Dagmaritting on: 10/23/2024 04:52 PM EST
--- OUTSIDE RECORDS SUMMARY | 2024-06-23 06:38 | XMS_ITS ---
Author Organization Ned Son MD Address [address] [facility] [address] [place] [phone] Care Team Providers Care Mixing Machine Tender Cork Rod Name Role Phone Ned Son Primary Care Provider REASON FOR VISIT ? sinus infection Encounters Encounter Location Date Provider Diagnosis Ned Son MD [address] [facility] [address] [place] [phone] 06/23/2024 Ned Son Plan Of Treatment Next Appt Details Provider Name:Ned byrnes, 10/22/2025 08:00:00 AM, [address] [place] [address], [address], [phone], Provider Name:Ned byrnes, 10/29/2025 02:30:00 PM, [address] [place] [address], [address], [phone], Progress Notes * Carlyle NUNEZB:1970 ( 53 yo F)Acc No.[id number]:06/23/2024 Patient: Cady Russell :1970 A ge:53 Y S ex:Female Address:[address] [place] [address] * true * Date: Generated for Printi ng/Faxing/eTransmitting on: 10/23/2024 04:51 PM EST
--- OUTSIDE RECORDS SUMMARY | 2024-10-20 02:15 | XMS_ITS ---
Author Organization Ned Son MD Address [address] [place], [place] [id number] Care Team Providers Care Yard Labor Supervisor Name Role Phone Ned Son Primary Care Provider Results Component Value Reference Range Notes Complete Blood Count Auto Di ff Reviewed date:10/20/2024 12:28:17 PM Interpretation: Performing Lab:[facility], [address] [place] [phone] Notes/Report: White Blood Count 7.1 4.8-10.8 X10*3/uL Red Blood Count 4.57 4.20-5.50 X10*6/uL Hemoglobin 13.4 12.0-16.0 g/dl Hematocrit 41.0 37.0-47.0 % Mean Corpuscular Volume 89.7 80.0-98.0 fL Mean Corpuscular Hemoglobin 29.3 27.0-33.0 pg Mean Corpuscular HGB Conc 32.7 31.0-35.0 g/dl Red Cell Distribution Width 12.4 11.0-16.0 % Platelet Count 251 160-400 X10*3/uL Mean Platelet Volume 8.7 9.4-12.3 fL Neutrophils Percent Auto 48.9 45-73 % Imm Gran Pct Auto 0.3 0.0-0.4 % Lymphocytes Percent Auto 40.4 20-40 % Monocytes Percent Auto 7.5 2-11 % Eosinophils Percent Auto 2.3 0-4 % Basophils Percent Auto 0.6 0-2 % NRBC Pct Auto 0.0 0.0-0.2 /100WBC Neutrophils Absolute Auto 3.5 2.0-8.3 x10*3/u L Imm Gran Abs Auto 0.02 0.00-0.03 X10*3/uL Lymphocytes Absolute Auto 2.9 1.2-4.9 X10*3/u L Monocytes Absolute Auto 0.5 0.1-1.2 X10*3/uL Eosinophils Absolute Auto 0.2 0.0-0.4 X10*3/u L Basophils Absolute Auto 0.0 0.0-0.2 X10*3/uL NRBC Abs Auto 0.000 0.0-0.012 X10*3/uL Comprehensive [place]. Panel Fa st Reviewed date:10/20/2024 12:47:33 PM Interpretation: Performing Lab:[address] [phone] Notes/Report: Sodium 138 135-145 mmol/L Potassium 4.2 3.3-5.1 mmol/L Chloride 105 96-108 mmol/L Carbon Dioxide 27 22-29 mmol/L Anion Gap 10 12-20 Blood Urea Nitrogen 21 9-16 mg/dL Creatinine 0.70 0.5-1.4 mg/dL Estimated Glomerular Filt Rate > 60 Chronic Kidney Disease: Estimated GFR < 60 mL/min/1.73m2 Severe Kidney Disease: Estimated GFR < 15 mL/min/1.73m2 Glucose Fasting 149 60-99 mg/dL A fasting glucose of 126 mg/dl or greater on more than one occasion is considered diagnostic of diabetes. Calcium 9.1 8.4-10.2 mg/dL Bilirubin Total 0.3 0.0-1.0 mg/dL Aspartate Amino Transferase 32 5-31 U/L Alanine Aminotransferase 38 0-31 U/L Total Protein 6.7 6.5-8.0 g/dL Albumin Level 4.1 3.5-5.0 g/dL Alkaline Phosphatase 97 39-117 U/L Lipid Panel Reviewed date:10/20/2024 12:47:17 PM Interpretation: Performing Lab:[facility], [address] [place] [phone] Notes/Report: Triglycerides 83 <150 mg/dL Slight Lipemia. Desirable Triglyceride: less than 150 mg/dL Borderline High Triglyceride 150-199 mg/dL High Triglyceride: 200-499 mg/dL Very High Triglyceride: greater than or equal to 5OO mg/dL Cholesterol 193 <200 mg/dL Desirable Cholesterol: less than 200 mg/dL Borderline High Cholesterol: 200-239 mg/dL High Cholesterol: greater than 239 mg/dL LDL Cholesterol Calculated 122 <100 mg/dL Desirable LDL: less than 100 mg/dL Near Optimal/Above Optimal LDL: 110-129 mg/dL Borderline High LDL: 130-159 mg/dL High LDL: 160-189 mg/dL Very High LDL: greater than or equal to 190 mg/dL HDL Cholesterol 55 >40 mg/dL Desirable HDL: greater than 40 mg/dL Note: This HDL assay may give artificially low results in patients with liver disease. Microalbumin, Random Reviewed date:10/20/2024 12:19:30 PM Interpretation: Performing Lab:[address] [phone] Notes/Report: Creatinine Urine 47.42 Microalbumin Urine 20.0 Microalbum/Creatinine Ratio Ur 42.1 <30 ug/mg cr Albumin/Creatinine Ratio Reference Ranges: Normal: < 30 ug/mg creatinine Microalbuminuria: 30 - 300 ug/mg creatinine Clinical Albuminuria: > 300 ug/mg creatinine Hemoglobin A1c Reviewed date:10/20/2024 12:20:05 PM Interpretation: Performing Lab:[address] [phone] Notes/Report: Hemoglobin A1c % 6.3 <6.0 % Hemoglobin A1C Reference Range Adults: 4.8 - 6.0 % Non diabetic: < 6.0 % Goal: < 7.0 % Additional Action Suggested: > 8.0 % Note: Hemoglobin A1c results are invalid for patients with abnormal amounts of HbF. Blood transfusions may impact the HbA1c concentration in the patient sample. Estimated Average Glucose 134 eAG = Estimated average glucose which is %A1C expressed as average glucose, using the formula of the Y7F-Tjibsyh Average Glucose study (ADAG), Diabetes Care, Vol.31,#8, May. 2007 UA ClnCatch+Micro w/rflx Cul t Reviewed date:10/20/2024 12:31:15 PM Interpretation: Performing Lab:[facility], [address] [place] [phone] Notes/Report: Urine, Clean Catch Color Urine Yellow Appearance Urine Clear PH 7.0 5.0-9.0 Glucose Urine UA Negative Negative mg/dL Urine Blood Negative Negative Specific [place] - Urine 1.015 1.005-1.025 Urine Protein Negative Neg-Trace mg/dL Urine Ketones Negative Negative mg/dL Nitrite Urine Negative Negative Leukocyte Esterase Urine Small (1+) Negative RBC Urine 0-2 0-2 /HPF WBC Urine 0-5 0-5 /HPF Squamous Epithelial Cell Urine 3-5 0-2 /HPF Bacteria Urine None Seen None Seen Hyaline Casts Urine 0-2 0-2 /LPF REASON FOR VISIT yearly fasting labs Encounters Encounter Location Date Provider Diagnosis Ned Son MD [address] [place] [phone] 10/20/2024 Ned Son Blood tests for routine general physical examination Z00.00 ; Leukocytosis, unspecified type D72.829 and Type 2 diabetes mellitus without complication, without long-term current use of insulin E11.9 Assessments Encounter Date Diagnosis (ICD Code) Assessment Notes Treatment Notes Treatment Clinical Notes Section Notes 10/20/2024 Blood tests for routine general physical examination (ICD-10 - Z00.00) 10/20/2024 Leukocytosis, unspecified type (ICD-10 - D72.829) 10/20/2024 Type 2 diabetes mellitus without complication, without long-term current use of insulin (ICD-10 - E11.9) Plan Of Treatment Next Appt Details Provider Name:Ned byrnes, 10/22/2025 08:00:00 AM, [address] [place] [address], [address], [phone], Provider Name:Ned byrnes, 10/29/2025 02:30:00 PM, [address] [place] [address], [address], [phone], Progress Notes * Terry NUNEZ:1970 ( 54 yo F)Acc No.[id number]:10/20/2024 Progress Note Patient: Cady HITCHCOCK Provider: Khalida Son MD :1970 A ge:53 Y S ex:Female Date:10/20/2024 Address: [address], [place], [facility] Subjective: * Chief Complaints: * 1 . Yearly fasting labs. * Medical History: Objective: * Vitals: Assessment: * Assessment: 1. B lood tests for routine general physical examination - Z00.00 (Primary) 2 .?Leukocytosis, unspecified type - D72.829 3 . T ype 2 diabetes mellitus without complication, without long-term current use of insulin - E11.9 Plan: * Treatment: 2. L eukocytosis, unspecified type L AB: Complete Blood Count Auto Diff (Collection Date & Time - 10/20/2024 07:15 AM) L AB: Comprehensive [place]. Panel Fast (Collection Date & Time - 10/20/2024 07:15 AM) L AB: Lipid Panel (Collection Date & Time - 10/20/2024 07:15 AM) L AB: Microalbumin, Random (Collection Date & Time - 10/20/2024 07:15 AM) L AB: Hemoglobin A1c (Collection Date & Time - 10/20/2024 07:15 AM) L AB: UA ClnCatch+Micro w/rflx Cult (Collection Date & Time - 10/20/2024 07:15 AM) 3. T ype 2 diabetes mellitus without complication, without long-term current use of insulin L AB: Complete Blood Count Auto Diff (Collection Date & Time - 10/20/2024 07:15 AM) L AB: Comprehensive [place]. Panel Fast (Collection Date & Time - 10/20/2024 07:15 AM) L AB: Lipid Panel (Collection Date & Time - 10/20/2024 07:15 AM) L AB: Microalbumin, Random (Collection Date & Time - 10/20/2024 07:15 AM) L AB: Hemoglobin A1c (Collection Date & Time - 10/20/2024 07:15 AM) L AB: UA ClnCatch+Micro w/rflx Cult (Collection Date & Time - 10/20/2024 07:15 AM) * Procedure Codes: 3 6415 VENIPUNCT, ROUTINE* * * The named appointment provid er may or may not be the originator of this progress note, and it is not deemed complete until electronically signed by the appointment provider. Sign off status: Pending * Provider: Khalida Son MD Date: 0 10/20/2024 Generated for Carlyn law/Sivakumar/Haley on: 10/23/2024 04:51 PM EST
--- OUTSIDE RECORDS SUMMARY | 2024-10-24 09:30 | XMS_ITS ---
Author Organization Ned Son MD Address [address] [place], [place] [id number] Care Team Providers Care Wool Washer Name Role Phone Ned Son Primary Care Provider Allergies Allergen (clinical drug ingredient) Drug/Non Drug Allergy documented on EMR Reaction Allergy Type Onset Date Status Codeine Phosphate vomiting Drug Allergy Active REASON FOR VISIT annual visit Medications Medication SIG (Take, Route, Frequency, Duration) Notes Start Date End Date Status Ibuprofen 800 MG TAKE 1 TABLET BY KENNETH TH THREE TIMES A DAY WITH FOOD OR MILK NEEDED FOR 30 DAYS for 30 Active Albuterol Sulfate HFA 108 (90 Base) MCG/ACT 1 puff as needed Inhalation every 4 hrs 11/06/2021 Active Mucinex 600 MG 1 tablet as needed Orally every 12 hrs Not-Taking Tylenol 8 Hour 650 MG 2 tablets as neede d Orally every 8 hrs Not-Taking Clobetasol Propionate E 0.05 % as directed Externally twice for 30 days 12/12/2012 Not-Taking metFORMIN HCl 500 MG TAKE 1 TABLET BY MO UT TWICE A DAY WITH A MEAL FOR 30 DAYS for 30 Active Ventolin HFA 108 (90 Base) MCG/ACT 2 puffs as needed Inhalation every 4 hrs for 30 days Not-Taking Social History Tobacco Use: Social History Observation Description Date Details (start date - stop date) Former Smoker NA - NA Tobacco Use/Smoking Question Answer Notes Patient is [...] Never (0 point) Points 1 Interpretation Negative Vital Signs Blood pressure systolic 128 mm Hg 10/24/19 25 Blood pressure diastolic 80 mm Hg 025 Height 62.5 in 10/24/2024 Weight 178 lbs 10/24/2024 BMI 32.03 kg/m2 10/24/2024 weight is down 3 pounds [facility] nichol 03-09-24 Encounters Encounter Location Date Provider Diagnosis Ned Son MD [address] [place] [address] [address] [place], [place] [phone] 10/24/2024 Ned Son Type 2 diabetes mellitus without complication, without long-term current use of insulin E11.9 ; Mild intermittent asthmatic bronchitis with acute exacerbation J45.21 ; Arthritis M19.90 and Depression screening Z13.31 Assessments Encounter Date Diagnosis (ICD Code) Assessment Notes Treatment Notes Treatment Clinical Notes Section Notes 10/24/2024 Type 2 diabetes mellitus without complication, without long-term current use of insulin (ICD-10 - E11.9) discussed the need for statins but she has elevated lft's and she doesn't want to get on anything at present/ a1c is good , will cntnue current regiment and will continue to monitor. advised on diet 10/24/2024 Mild intermittent asthmatic bronchitis with acute exacerbation (ICD-10 - J45.21) uses inhaler in the morning 10/24/2024 Arthritis (ICD-10 - M19.90) stable, will continue current regiment 10/24/2024 Depression screening (ICD-10 - Z13.31) negative screen Plan Of Treatment Treatment Notes Assessment Notes Type 2 diabetes mellitus wit hout complication, without long-term current use of insulin discussed the need for statins but she has elevated lft's and she doesn't want to get on anything at present/ a1c is good , will cntnue current regiment and will continue to monitor. advised on diet Mild intermittent asthmatic bronchitis with acute exacerbation uses inhaler in the morning Arthritis stable, will continu e current regiment Depression screening negative screen Next Appt Details Follow Up: 6 Months, Reason: Provider Name:Ned Neisha Juantutu soniya, 10/22/2025 08:00:00 AM, [address] [facility] [address], [address], [place], [place], [phone], Provider Name:Ned Neisha Juantutu soniya, 10/29/2025 02:30:00 PM, [address] [facility] [address], [address], [place], [place], [phone], Progress Notes * Tarik NUNEZaDOB:1970 ( 53 yo F)Acc No.[id number]:10/24/2024 Progress Notes Patient: Cady Russell Provider: Khalida Son MD :1970 A ge:53 Y S ex:Female Date:10/24/2024 Address:[address] [place] [address] , [place]al gandara, [id number] Subjective: * Chief Complaints: * A nnual visit * HPI: D epression Screening: PHQ-9 L ittle interest or pleasure in doing things N ot at all, F eeling down, depressed, or hopeless N ot at all, T rouble falling or staying asleep, or sleeping too much N ot at all, F eeling tired or having little energy N ot at all, P oor appetite or overeating N ot at all, F eeling bad about yourself or that you are a failure, or have let yourself or your family down N ot at all, T rouble concentrating on things, such as reading the newspaper or watching television N ot at all, M oving or speaking so slowly that other people could have noticed; or the opposite, being so fidgety or restless that you have been moving around a lot more than usual N ot at all, T houghts that you would be better off or of hurting yourself in some way N ot at all, T otal Score 0 . I nterpretation and Intervention D epression Screening Findings N egative, F ollow-Up for Depression : review of PHQ-9 found negative result, no follow-up needed. C ommunication Needs: Communication Needs D oes the patient have a hearing impairment N o, D oes the patient have a vision impairment? Y es, I f yes, what is the vision impairment? G lasses, D oes the patient have a cognition impairment? N o. S SUSAN Questions: SDOH Questions I n the past year have you been worried about losing housing? N o, I n the past year have you or any family members you live with been unable to get any of the following when it was really needed? Check all that apply: N one. S ymptom(s): patient is a 53 yo female here for annual visit with review of recent labs and follow up of chronic issues. * ROS: G eneral/Constitutional: Patient denies f atigue , headache. C hange in appetite?denies. C hills d enies. F ever d enies. O phthalmologic: Blurred vision d enies. D ischarge d enies. P ain d enies. E NT: Patient denies d ecreased sense of smell , any loss of taste , sore throat. D ecreased hearing d enies. S ore throat d enies. S wollen glands d enies. E ndocrine: Cold intolerance d enies. E xcessive thirst d enies. H eat intolerance d enies. W eight loss d enies. R espiratory: Cough d enies. S hortness of breath at rest d enies. S hortness of breath with exertion d enies. W heezing d enies. C ardiovascular: Chest pain at rest d enies. C hest pain with exertion?denies. I rregular heartbeat d enies. S hortness of breath d enies. ? G astrointestinal: Abdominal pain d enies. C hange in bowel habits d enies. D iarrhea d enies. N ausea d enies. R ectal bleeding d enies. V omiting d enies . G enitourinary: Blood in urine d enies. D ifficulty urinating d enies. F requent urination d enies. U rinary incontinence D enies. M usculoskeletal: Patient denies m uscle aches. P ainful joints d enies. W eakness d enies. P eripheral Vascular: Patient denies r ed and blue toes. S kin: Dry skin d enies. I tching d enies. D enies?Mole(s), changes in moles, new moles or any lesions of concern. D enies P hotosensitivity. R karly d enies. N eurologic: Dizziness d enies. F ainting d enies. H eadache?denies. * Medical History: * Surgical History: * Hospitalization/Major Diagno stic Procedure: * Family History: F ather: 68 yrs, diagnosed with Diabetes, Hypertension. M other: alive 68 yrs, diagnosed with Cancer, Diabetes. 1 sister(s) - healthy. 1 son(s) , 1 daughter(s) - healthy. .? Denies mental health/substance abuse family history, No pertinent family medical history sister is an alcoholic, Denies mental health/substance abuse family history Father CHF, Denies mental health/substance abuse family history, No pertinent family medical history. * Social History: T obacco Use: T obacco Use/Smoking P atient is a f ormer smoker, H ow long has it been since you last smoked? > 10 years, A dditional Findings: Tobacco Non-User F ormer smoker, currently using no form of tobacco. D rugs/Alcohol: A lcohol Screen D id you have a drink containing alcohol in the past year? Y es, H ow often did you have a drink containing alcohol in the past year? M onthly or less (1 point), H ow many drinks did you have on a typical day when you were drinking in the past year? 1 or 2 drinks (0 point), H ow often did you have 6 or more drinks on one occasion in the past year? N ever (0 point), P oints 1 , I nterpretation N egative. M iscellaneous: C affeine: yes, frequency:, 1-2 cups per day. Children: yes. no Community involvements. Exercise: yes, walks the dog. Home smoke detector use: yes. Housing: owning. Living with: spouse. Marital status: . Pets: none, 1 CAT 1 DOG 1 LIZARD. no Travel outside of the [place]. * Medications: T akingAlbuterol Sulfate HFA 108 (90 Base) MCG/ACT Aerosol Solution 1 puff as needed Inhalation every 4 hrsIbuprofen 800 MG Tablet TAKE 1 TABLET BY MOUTH THREE TIMES A DAY WITH FOOD OR MILK NEEDED FOR 30 DAYS metFORMIN HCl 500 MG Tablet TAKE 1 TABLET BY MOUTH TWICE A DAY WITH A MEAL FOR 30 DAYS Taking Albuterol Sulfate HFA 108 (90 Base) MCG/ACT Aerosol Solution 1 puff as needed Inhalation every 4 hrsTaking Ibuprofen 800 MG Tablet TAKE 1 TABLET BY MOUTH THREE TIMES A DAY WITH FOOD OR MILK NEEDED FOR 30 DAYS Taking metFORMIN HCl 500 MG Tablet TAKE 1 TABLET BY MOUTH TWICE A DAY WITH A MEAL FOR 30 DAYS Not-Taking/PRNVentolin HFA 108 (90 Base) MCG/ACT Aerosol Solution 2 puffs as needed Inhalation every 4 hrsMucinex 600 MG Tablet Extended Release 12 Hour 1 tablet as needed Orally every 12 hrsTylenol 8 Hour 650 MG Tablet Extended Release 2 tablets as needed Orally every 8 hrsClobetasol Propionate E 0.05 % Cream as directed Externally twiceMedication List reviewed and reconciled with the patientNot-Taking/PRN Ventolin HFA 108 (90 Base) MCG/ACT Aerosol Solution 2 puffs as needed Inhalation every 4 hrsNot-Taking/PRN Mucinex 600 MG Tablet Extended Release 12 Hour 1 tablet as needed Orally every 12 hrsNot-Taking/PRN Tylenol 8 Hour 650 MG Tablet Extended Release 2 tablets as needed Orally every 8 hrsNot-Taking/PRN Clobetasol Propionate E 0.05 % Cream as directed Externally twiceMedication List reviewed and reconciled with the patient * Allergies: C odeine Phosphate: vomitingyes[Allergies Verified] Objective: * Vitals: H t: 62.5, Wt:178, BMI:32.03, BP:128/80 weight is down 3 pounds since 03-09-24. * P ast Orders: L ab:Microalbumin, Random (Order Date - 10/20/2024) (Collection Date - 10/20/2024) Value Reference Range Creatinine Urine 47.42 - mg/dL Microalbumin Urine 20.0 - mg/L Microalbum Creatinine Ratio Ur 42.1 H <30 - ug/ mg cr L ab:Hemoglobin A1c (Order Date - 10/20/2024) (Collection Date - 10/20/2024) Value Reference Range Hemoglobin A1c % 6.3 H <6.0 - % Estimated Average Glucose 134 - mg/dL L ab:UA ClnCatch+Micro w/rflx Cult (Order Date - 10/20/2024) (Collection Date - 10/20/2024) Value Reference Range Color Urine Yellow - Appearance Urine Clear - PH 7.0 5.0-9.0 - Glucose Urine UA Negative Negative - mg/dL Urine Blood Negative Negative - Specific [place] - Urine 1.015 1.005-1.025 - Urine Protein Negative Neg-Trace - mg/dL Urine Ketones Negative Negative - mg/dL Nitrite Urine Negative Negative - Leukocyte Esterase Urine Small (1+) A Negative - RBC Urine 0-2 0-2 - /HPF WBC Urine 0-5 0-5 - /HPF Squamous Epithelial Cell Urine 3-5 0-2 - /HP F Bacteria Urine None Seen None Seen - Hyaline Casts Urine 0-2 0-2 - /LPF L ab:Complete Blood Count Auto Diff (Order Date - 10/20/2024) (Collection Date - 10/20/2024) Value Reference Range White Blood Count 7.1 4.8-10.8 - X10*3/uL Red Blood Count 4.57 4.20-5.50 - X10*6/uL Hemoglobin 13.4 12.0-16.0 - g/dl Hematocrit 41.0 37.0-47.0 - % Mean Corpuscular Volume 89.7 80.0-98.0 - fL Mean Corpuscular Hemoglobin 29.3 27.0-33.0 - pg Mean Corpuscular HGB Conc 32.7 31.0-35.0 - g/ dl Red Cell Distribution Width 12.4 11.0-16.0 - % Platelet Count 251 160-400 - X10*3/uL Mean Platelet Volume 8.7 L 9.4-12.3 - fL Neutrophils Percent Auto 48.9 45-73 - % Imm Gran Pct Auto 0.3 0.0-0.4 - % Lymphocytes Percent Auto 40.4 H 20-40 - % Monocytes Percent Auto 7.5 2-11 - % Eosinophils Percent Auto 2.3 0-4 - % Basophils Percent Auto 0.6 0-2 - % NRBC Pct Auto 0.0 0.0-0.2 - /100WBC Neutrophils Absolute Auto 3.5 2.0-8.3 - x10* 3/uL Imm Gran Abs Auto 0.02 0.00-0.03 - X10*3/uL Lymphocytes Absolute Auto 2.9 1.2-4.9 - X10* 3/uL Monocytes Absolute Auto 0.5 0.1-1.2 - X10*3/ uL Eosinophils Absolute Auto 0.2 0.0-0.4 - X10* 3/uL Basophils Absolute Auto 0.0 0.0-0.2 - X10*3/ uL NRBC Abs Auto 0.000 0.0-0.012 - X10*3/uL L ab:Comprehensive [place]. Panel Fast (Order Date - 10/20/2024) (Collection Date - 10/20/2024) Value Reference Range Sodium 138 135-145 - mmol/L Bilirubin Total 0.3 0.0-1.0 - mg/dL Aspartate Amino Transferase 32 H 5-31 - U/L Alanine Aminotransferase 38 H 0-31 - U/L Total Protein 6.7 6.5-8.0 - g/dL Albumin Level 4.1 3.5-5.0 - g/dL Alkaline Phosphatase 97 39-117 - U/L Potassium 4.2 3.3-5.1 - mmol/L Chloride 105 96-108 - mmol/L Carbon Dioxide 27 22-29 - mmol/L Anion Gap 10 L 12-20 - Blood Urea Nitrogen 21 H 9-16 - mg/dL Creatinine 0.70 0.5-1.4 - mg/dL Estimated Glomerular Filt Rate > 60 - Glucose Fasting 149 H 60-99 - mg/dL Calcium 9.1 8.4-10.2 - mg/dL L ab:Lipid Panel (Order Date - 10/20/2024) (Collection Date - 10/20/2024) Value Reference Range Triglycerides 83 <150 - mg/dL Cholesterol 193 <200 - mg/dL LDL Cholesterol Calculated 122 H <100 - mg/dL HDL Cholesterol 55 >40 - mg/dL * Examination: G eneral Examination: GENERAL APPEARANCE: w ell developed, well nourished, in no acute distress. HEAD: n ormocephalic, atraumatic. EYES: p upils equal, round, reactive to light and accommodation, sclera non-icteric. EARS: n ormal. ORAL CAVITY: m ucosa moist. THROAT: c lear. NECK/THYROID: n matilde supple, full range of motion, no cervical lymphadenopathy, no bruits. SKIN: w arm and dry, no suspicious lesions. HEART: r egular rate and rhythm, S1, S2 normal, no murmurs.? LUNGS: c lear to auscultation bilaterally. BREASTS: d one by casing splitter. ABDOMEN: s oft, nontender, nondistended, bowel sounds present, normal, no organomegaly , no masses palpable. RECTAL EXAM: d one by casing splitter. FEMALE GENITOURINARY: d one by casing splitter. EXTREMITIES: n o clubbing, cyanosis, or edema. NEUROLOGIC: n onfocal, motor strength normal upper and lower extremities, sensory exam intact. Assessment: * Assessment: 1. T ype 2 diabetes mellitus without complication, without long-term current use of insulin - E11.9 (Primary) 2 . M ild intermittent asthmatic bronchitis with acute exacerbation - J45.21?3. A rthritis - M19.90 4 . D epression screening - Z13.31 Plan: * Treatment: 2. M ild intermittent asthmatic bronchitis with acute exacerbation Notes: uses inhaler in the morning 3. A rthritis Notes: stable, will continue current regiment 4. D epression screening Notes: negative screen * Procedure Codes: * Follow Up: 6 Months * * Sign off status: Completed true * Provider: Khalida Son MD Date: 0 10/24/2024 Generated for Carlyn law/Sivakumra/Dagmaritting on: 10/23/2024 04:51 PM EST History and Physical Notes * HPI (History of Present Illness) Category Sub-Category Detail Notes Category Not es Symptom(s) patient is a 53 yo female here for annual visit with review of recent labs and follow up of chronic issues. Depression Screening PHQ-9 Little inte rest or pleasure in doing things: Not at all Feeling down, depressed, or hopeless: No t at all Trouble falling or staying asleep, or sl eeping too much: Not at all Feeling tired or having little energy: N ot at all Poor appetite or overeating: Not at all Feeling bad about yourself o r that you are a failure, or have let yourself or your family down: Not at all Trouble concentrating on thi ngs, such as reading the newspaper or watching television: Not at all Moving or speaking so slowly that other people could have noticed; or the opposite, being so fidgety or restless that you have been moving around a lot more than usual: Not at all Thoughts that you would be b malika off or of hurting yourself in some way: Not at all Total Score: 0 Interpretation and Intervention Depression Earnestnichol thom Findings: Negative Follow-Up for Depression: : review of PH Q-9 found negative result, no follow-up needed SDOH Questions SDOH Questions In the past year have you been worried about losing housing?: No In the past year have you or any family members you live with been unable to get any of the following when it was really needed? Check all that apply:: None Communication Needs Communication Needs Does the patient have a hearing impairment: No Does the patient have a vision impairmen t?: Yes If yes, what is the vision impairment?: Glasses Does the patient have a cognition impair ment?: No Examination Category Sub-Category Detail Notes Category Not es General Examination GENERAL APPEARANCE: well dev eloped, well nourished, in no acute distress HEAD: normocephalic, atrau matic EYES: pupils equal, round, reactive to light and accommodation, sclera non-icteric EARS: normal THROAT: clear NECK/THYROID: neck supple, full ra nge of motion, no cervical lymphadenopathy, no bruits HEART: regular rate and rhy thm, S1, S2 normal, no murmurs LUNGS: clear to auscultatio n bilaterally ABDOMEN: soft, nontender, non distended, bowel sounds present, normal, no organomegaly , no masses palpable NEUROLOGIC: nonfocal, motor stre ngth normal upper and lower extremities, sensory exam intact SKIN: warm and dry, no jean-paul picious lesions EXTREMITIES: no clubbing, cyanosi s, or edema BREASTS: done by casing splitter RECTAL EXAM: done by casing splitter FEMALE GENITOURINARY: done by casing splitter ORAL CAVITY: mucosa moist
--- OUTSIDE RECORDS SUMMARY | 2025-04-30 10:15 | XMS_ITS ---
Author Organization Ned Son MD Address [address] [place], [place] [phone] Care Team Providers Care Licensed Retail Supervisor Name Role Phone Ned Son Primary Care Provider Allergies Allergen (clinical drug ingredient) Drug/Non Drug Allergy documented on EMR Reaction Allergy Type Onset Date Status Codeine Phosphate vomiting Drug Allergy Active Results Component Value Reference Range Notes Hemoglobin A1c Reviewed date:04/30/2025 03:22:27 PM Interpretation: Performing Lab: Notes/Report: Hemoglobin A1c 7.1 Glucose, finger stick Reviewed date:04/30/2025 03:16:01 PM Interpretation: Performing Lab: Notes/Report: Value 139 REASON FOR VISIT 6 months Medications Medication SIG (Take, Route, Frequency, Duration) Notes Start Date End Date Status Mucinex 600 MG 1 tablet as needed Orally every 12 hrs Not-Taking Ventolin HFA 108 (90 Base) MCG/ACT 2 puffs as needed Inhalation every 4 hrs for 30 days Not-Taking OneTouch Ultra Test - USE DIRECTED TW ICE A DAY for 25 Active Clobetasol Propionate E 0.05 % as directed Externally twice for 30 days 12/12/2012 Not-Taking Tylenol 8 Hour 650 MG 2 tablets as neede d Orally every 8 hrs Not-Taking metFORMIN HCl 500 MG TAKE 1 TABLET BY MO [facility] TWICE A DAY WITH A MEAL FOR 30 DAYS for 30 Active Ibuprofen 800 MG TAKE 1 TABLET BY [facility] THREE TIMES A DAY WITH FOOD OR MILK NEEDED FOR 30 DAYS for 30 Active Albuterol Sulfate HFA 108 (90 Base) MCG/ACT 1 puff as needed Inhalation every 4 hrs 11/06/2021 Active Vital Signs Blood pressure systolic 122 mm Hg 04/30/20 25 Blood pressure diastolic 80 mm Hg 025 Height 62.5 in 04/30/2025 Weight 182 lbs 04/30/2025 BMI 32.75 kg/m2 04/30/2025 weight is up 4 pounds since 10-24-24 Encounters Encounter Location Date Provider Diagnosis Ned Son MD [address] [place] [address] [place] [phone] 04/30/2025 Ned Son Type 2 diabetes mellitus without complication, without long-term current use of insulin E11.9 Assessments Encounter Date Diagnosis (ICD Code) Assessment Notes Treatment Notes Treatment Clinical Notes Section Notes 04/30/2025 Type 2 diabetes mellitus without complication, without long-term current use of insulin (ICD-10 - E11.9) has not been on diet. is going to start dieting. Plan Of Treatment Treatment Notes Assessment Notes Type 2 diabetes mellitus wit hout complication, without long-term current use of insulin has not been on diet. is going to start dieting. Next Appt Details Provider Name:Ned byrnes, 10/22/2025 08:00:00 AM, [address] [place] [address], Suite [facility], [place], [place], [phone], Provider Name:Ned byrnes, 10/29/2025 02:30:00 PM, [address] [place] [address], [place] [address], [place], [place], [phone], Progress Notes * Carlyle NUNEZB:1970 ( 54 yo F)Acc No.[id number]:04/30/2025 Progress Notes Patient: Cady HITCHCOCK Provider: Khalida Son MD :1970 A ge:54 Y S ex:Female Date:04/30/2025 Address: [address], [place], [id number] Subjective: * Chief Complaints: * 6 months * HPI: S ymptom(s): patient is a 54 yo female here for 6 mnth follow up visit. * ROS: G eneral/Constitutional: Denies Migel hills. D enies F atigue. D enies F ever. D enies H eadache. E NT: Denies S ore throat. E ndocrine: Denies D ifficulty sleeping. A dmits D izziness.?Denies E xcessive sweating. D enies E xcessive thirst. A dmits F requent urination. R espiratory: Denkaryn Lainez ough. D enies S hortness of breath at rest. D enies S hortness of breath with exertion. G astrointestinal: Denies D iarrhea. D enies N ausea. * Medical History: * Surgical History: * Hospitalization/Major Diagno stic Procedure: * Medications: T akingAlbuterol Sulfate HFA 108 (90 Base) MCG/ACT Aerosol Solution 1 puff as needed Inhalation every 4 hrs Ibuprofen 800 MG Tablet TAKE 1 TABLET BY MOUTH THREE TIMES A DAY WITH FOOD OR MILK NEEDED FOR 30 DAYS metFORMIN HCl 500 MG Tablet TAKE 1 TABLET BY MOUTH TWICE A DAY WITH A MEAL FOR 30 DAYS OneTouch Ultra Test - Strip USE DIRECTED TWICE A DAY Taking Albuterol Sulfate HFA 108 (90 Base) MCG/ACT Aerosol Solution 1 puff as needed Inhalation every 4 hrs Taking Ibuprofen 800 MG Tablet TAKE 1 TABLET BY MOUTH THREE TIMES A DAY WITH FOOD OR MILK NEEDED FOR 30 DAYS Taking metFORMIN HCl 500 MG Tablet TAKE 1 TABLET BY MOUTH TWICE A DAY WITH A MEAL FOR 30 DAYS Taking OneTouch Ultra Test - Strip USE DIRECTED TWICE A DAY Not-Taking/PRNVentolin HFA 108 (90 Base) MCG/ACT Aerosol Solution 2 puffs as needed Inhalation every 4 hrs Mucinex 600 MG Tablet Extended Release 12 Hour 1 tablet as needed Orally every 12 hrs Tylenol 8 Hour 650 MG Tablet Extended Release 2 tablets as needed Orally every 8 hrs Clobetasol Propionate E 0.05 % Cream as directed Externally twice Medication List reviewed and reconciled with the patientNot-Taking/PRN Ventolin HFA 108 (90 Base) MCG/ACT Aerosol Solution 2 puffs as needed Inhalation every 4 hrs Not-Taking/PRN Mucinex 600 MG Tablet Extended Release 12 Hour 1 tablet as needed Orally every 12 hrs Not-Taking/PRN Tylenol 8 Hour 650 MG Tablet Extended Release 2 tablets as needed Orally every 8 hrs Not-Taking/PRN Clobetasol Propionate E 0.05 % Cream as directed Externally twice Medication List reviewed and reconciled with the patient * Allergies: C odeine Phosphate: vomitingyes[Allergies Verified] Objective: * Vitals: H t: 62.5, Wt: 182, BMI:32.75, BP:122/80, Wt-k.55. weight is up 4 pounds since 10-24-24. * Examination: G eneral Examination: GENERAL APPEARANCE: a lert, well hydrated, in no distress.? HEAD: n ormocephalic. SKIN: g ood turgor. HEART: r egular rate and rhythm, no murmurs, rubs, gallops.? LUNGS: n o wheezes, rales, rhonchi, good air movement, clear to auscultation bilaterally. Assessment: * Assessment: 1. T ype 2 diabetes mellitus without complication, without long-term current use of insulin - E11.9 (Primary) Plan: * Treatment: Value Reference Range H emoglobin A1c 7.1 ?LAB: Glucose, finger stick (Collection Date & Time - 04/30/2025)* Value Reference Range V alue 139 Notes: has not been on diet. is going to start dieting. ?? * Procedure Codes: 8 2947 ASSAY, GLUCOSE, BLOOD QUANT, Modifiers: QW 08000 GLYCATED HEMOGLOBIN TEST, Modifiers: QW * * Sign off status: Completed true * Provider: Khalida Son MD Date: 0 04/30/2025 Generated for Carlyn law/Sivakumar/eTransmitting on: 1 10/23/2024 04:52 PM EST History and Physical Notes * HPI (History of Present Illness) Category Sub-Category Detail Notes Category Not es Symptom(s) patient is a 54 yo female here for 6 mnth follow up visit Examination Category Sub-Category Detail Notes Category Not es General Examination GENERAL APPEARANCE: alert, w ell hydrated, in no distress HEAD: normocephalic HEART: regular rate and rhy thm, no murmurs, rubs, gallops LUNGS: no wheezes, rales, r honchi, good air movement, clear to auscultation bilaterally SKIN: good turgor
--- OUTSIDE RECORDS SUMMARY | 2025-05-31 09:15 | XMS_ITS ---
Author Organization Ned Son MD Address [address] [place], [place] [phone] Care Team Providers Care Permit Specialist Name Role Phone Ned Son Primary Care Provider Allergies Allergen (clinical drug ingredient) Drug/Non Drug Allergy documented on EMR Reaction Allergy Type Onset Date Status Codeine Phosphate vomiting Drug Allergy Active Results Component Value Reference Range Notes Glucose, finger stick Reviewed date:05/31/2025 02:15:41 PM Interpretation: Performing Lab: Notes/Report: Value 145 REASON FOR VISIT right pointer finger very painful cannot close her hand started this morning Medications Medication SIG (Take, Route, Frequency, Duration) Notes Start Date End Date Status predniSONE 20 MG 2 tablet with food o r milk Orally Once a day for 7 days 05/31/2025 Active SymphogenTouch Ultra Test - USE DIRECTED TW ICE A DAY for 25 Active Ibuprofen 800 MG TAKE 1 TABLET BY [facility] THREE TIMES A DAY WITH FOOD OR MILK NEEDED FOR 30 DAYS for 30 Active Albuterol Sulfate HFA 108 (90 Base) MCG/ACT INHALE 2 PUFFS INTO THE LUNGS EVERY 4 HOURS NEEDED FOR 30 DAYS for 17 Active Clobetasol Propionate E 0.05 % as directed Externally twice for 30 days 12/12/2012 Not-Taking Tylenol 8 Hour 650 MG 2 tablets as neede d Orally every 8 hrs Not-Taking metFORMIN HCl 500 MG TAKE 1 TABLET BY MO [facility] TWICE A DAY WITH A MEAL FOR 30 DAYS Active Mucinex 600 MG 1 tablet as needed Orally every 12 hrs Not-Taking Vital Signs Blood pressure systolic 122 mm Hg 05/31/20 25 Blood pressure diastolic 84 mm Hg 025 Height 62.5 in 05/31/2025 Weight 182 lbs 05/31/2025 BMI 32.75 kg/m2 05/31/2025 Encounters Encounter Location Date Provider Diagnosis Ned Son MD [address] [place] [phone] 05/31/2025 Ned Son Type 2 diabetes mellitus without complication, without long-term current use of insulin E11.9 and Tendonitis M77.9 Assessments Encounter Date Diagnosis (ICD Code) Assessment Notes Treatment Notes Treatment Clinical Notes Section Notes 05/31/2025 Type 2 diabetes mellitus without complication, without long-term current use of insulin (ICD-10 - E11.9) stable, will continue current regiment 05/31/2025 Tendonitis (ICD-10 - M77.9) patient verbalized understanding of medication and direction for use Plan Of Treatment Medication Medication Name Sig Start Date Stop Date Notes predniSONE 20 MG 2 tablet with food o r milk Orally Once a day for 7 days 05/31/2025 metFORMIN HCl 500 MG TAKE 1 TABLET BY [facility] TWICE A DAY WITH A MEAL FOR 30 DAYS Treatment Notes Assessment Notes Type 2 diabetes mellitus wit hout complication, without long-term current use of insulin stable, will continue current regiment Tendonitis patient verbalized u nderstanding of medication and direction for use Next Appt Details Follow Up: 1 Week, Reason: Provider Name:Ned byrnes, 10/22/2025 08:00:00 AM, [address] [place] [address], [place] [address], [place], [place], [phone], Provider Name:Ned byrnes, 10/29/2025 02:30:00 PM, [address] [place] [address], [place] [address], [place], [place], [phone], Progress Notes * Carlyle NUNEZB:1970 ( 54 yo F)Acc No.[id number]:05/31/2025 Progress Notes Patient: Cady HITCHCOCK Provider: Khalida Son MD :1970 A ge:54 Y S ex:Female Date:05/31/2025 Address: [address], [place], [id number] Subjective: * Chief Complaints: * R ight pointer finger very painful cannot close her hand started this morning * HPI: S ymptom(s): patient is a 54 yo female with complaint she can't open her hand. pain in index finger and thumb. * ROS: G eneral/Constitutional: Denies C hills. D enies F atigue. D enies F ever. D enies H eadache. E NT: Denies S ore throat. R espiratory: Denies C ough. D enies S hortness of breath at rest. D enies S hortness of breath with exertion. G astrointestinal: Denies D iarrhea. D enies N ausea. * Medical History: * Surgical History: * Hospitalization/Major Diagno stic Procedure: * Medications: T akingmetFORMIN HCl 500 MG Tablet TAKE 1 TABLET BY MOUTH TWICE A DAY WITH A MEAL FOR 30 DAYS OneTouch Ultra Test - Strip USE DIRECTED TWICE A DAY Albuterol Sulfate HFA 108 (90 Base) MCG/ACT Aerosol Solution INHALE 2 PUFFS INTO THE LUNGS EVERY 4 HOURS NEEDED FOR 30 DAYS Ibuprofen 800 MG Tablet TAKE 1 TABLET BY MOUTH THREE TIMES A DAY WITH FOOD OR MILK NEEDED FOR 30 DAYS Taking metFORMIN HCl 500 MG Tablet TAKE 1 TABLET BY MOUTH TWICE A DAY WITH A MEAL FOR 30 DAYS Taking OneTouch Ultra Test - Strip USE DIRECTED TWICE A DAY Taking Albuterol Sulfate HFA 108 (90 Base) MCG/ACT Aerosol Solution INHALE 2 PUFFS INTO THE LUNGS EVERY 4 HOURS NEEDED FOR 30 DAYS Taking Ibuprofen 800 MG Tablet TAKE 1 TABLET BY MOUTH THREE TIMES A DAY WITH FOOD OR MILK NEEDED FOR 30 DAYS Not-Taking/PRNMucinex 600 MG Tablet Extended Release 12 Hour 1 tablet as needed Orally every 12 hrs Tylenol 8 Hour 650 MG Tablet Extended Release 2 tablets as needed Orally every 8 hrs Clobetasol Propionate E 0.05 % Cream as directed Externally twice Not-Taking/PRN Mucinex 600 MG Tablet Extended Release 12 Hour 1 tablet as needed Orally every 12 hrs Not-Taking/PRN Tylenol 8 Hour 650 MG Tablet Extended Release 2 tablets as needed Orally every 8 hrs Not-Taking/PRN Clobetasol Propionate E 0.05 % Cream as directed Externally twice * Allergies: C odeine Phosphate: vomitingyes[Allergies Verified] Objective: * Vitals: H t: 62.5, Wt: 182, BMI:32.75, BP:122/84, Wt-k.55. * Examination: G eneral Examination: GENERAL APPEARANCE: a lert, well hydrated, in no distress.? MUSCULOSKELETAL: h as marked tenderness to palpation if her index finger and thenar imminence. Assessment: * Assessment: 1. T ype 2 diabetes mellitus without complication, without long-term current use of insulin - E11.9 (Primary) 2 . T endonitis - M77.9 Plan: * Treatment: Value Reference Range V alue 145 Notes: stable, will continue current regiment??2.?Tendonitis? Start predniSONE Tablet, 20 MG, 2 tablet with food or milk, Orally, Once a day, 7 days, 14 Tablet. ? Notes: patient verbalized understanding of medication and direction for use?? * Procedure Codes: 8 2947 ASSAY, GLUCOSE, BLOOD QUANT, Modifiers: QW * Follow Up: 1 Week * * Sign off status: Completed true * Provider: Khalida Son MD Date: 0 05/31/2025 Generated for Carlyn law/Sivakumar/Haley on: 10/23/2024 04:51 PM EST History and Physical Notes * HPI (History of Present Illness) Category Sub-Category Detail Notes Category Not es Symptom(s) patient is a 54 yo female with complaint she can't open her hand. pain in index finger and thumb Examination Category Sub-Category Detail Notes Category Not es General Examination GENERAL APPEARANCE: alert, w ell hydrated, in no distress MUSCULOSKELETAL: has marked tendernes s to palpation if her index finger and thenar imminence
--- OUTSIDE RECORDS SUMMARY | 2025-06-01 09:14 | XMS_ITS ---
Author Organization Ned Son MD Address 10 [facility] [address] [place] [phone] Care Team Providers Care Precision Structural Metal Fitter Name Role Phone Ned Son Primary Care Provider [phone] REASON FOR VISIT hand pain Encounters Encounter Location Date Provider Diagnosis Ned Son MD [address] [facility] [address] [place] [phone] 06/01/2025 Ned Son Plan Of Treatment Next Appt Details Provider Name:Ned byrnes, 10/22/2025 08:00:00 AM, [address] [place] [address], [address], [phone], Provider Name:Ned byrnes, 10/29/2025 02:30:00 PM, [address] [place] [address], [address], [phone], Progress Notes * Terry NUNEZ:1970 ( 54 yo F)Acc No.[id number]:06/01/2025 Patient: Cady HITCHCOCK :1970 A ge:54 Y S ex:Female Address:[address] [place] [address] * true * Date: Generated for Printi ng/Faxing/eTransmitting on: 10/23/2024 04:52 PM EST
--- OUTSIDE RECORDS SUMMARY | 2025-06-04 06:29 | XMS_ITS ---
Author Organization Ned Son MD Address [address] [place], [place] [phone] Care Team Providers Care Certified Retinal Angiographer Name Role Phone Ned Son Primary Care Provider [phone] Reason For Referral Reason right hand pain [facility] ER report and x-rays will be faxed Diagnosis 1 Pain in right hand ( M79.641) Referral Organization Ned Son MD Referring Provider First Name Ned Referring Provider Last Name Adelaida Referring Provider Speciality Internal M edicine Referred Provider Lety Lomeli Referred Provider Specialty Hand Surgery General Notes Coco Simpson 0 06/04/2025 01:07:39 PM >info faxed, Coco Simpson 06/05/2025 11:28:25 AM >patient is aware of the appt Referral Priority Routine Referral Appointment Date 06/20/2025 REASON FOR VISIT Rt hand pain Encounters Encounter Location Date Provider Diagnosis Ned Son MD [address] [place], [place] [phone] 06/04/2025 Ned Son Plan Of Treatment Referrals Referral Date Details 06/04/2025 06/04/2025, right hicks nd pain [facility] [place] report and x-rays will be faxed, [place] [place] Appt Details Provider Name:Ned byrnes, 10/22/2025 08:00:00 AM, [address], [address], [place], [place], [phone], Provider Name:Ned byrnes, 10/29/2025 02:30:00 PM, [address], [address], [place], [phone], Progress Notes * Tarik NUNEZAdrielB:1970 ( 54 yo F)Acc No.[id number]:06/04/2025 Patient: Cady HITCHCOCK :1970 A ge:54 Y S ex:Female Address: [address], [place], [place] [address] Subjective: * Chief Complaints: * R t hand pain * Medical History: * Surgical History: * Hospitalization/Major Diagno stic Procedure: * Medications: Objective: * Vitals: * Physical Examination: Assessment: Plan: * Treatment: * Procedure Codes: * true * Date: Generated for Printi ng/Faxing/eTransmitting on: 10/23/2024 04:52 PM EST Consultation Request Notes Referral Date Referring Provider Referred Provider Not es 06/04/2025 Ned Son Allison right hand pain [facility] [place] report and x-rays will be faxed
--- OUTSIDE RECORDS SUMMARY | 2025-06-05 04:15 | XMS_ITS ---
Author Organization Ned Son MD Address 10 [facility] [address] [place] [phone] Care Team Providers Care Customer Care Voice Consultant Name Role Phone Ned Son Primary Care Provider REASON FOR VISIT ER Encounters Encounter Location Date Provider Diagnosis Ned Son MD [address] [facility] [address] [place] [phone] 06/05/2025 Ned Son Plan Of Treatment Next Appt Details Provider Name:Ned byrnes, 10/22/2025 08:00:00 AM, [address] [place] [address], [address], [phone], Provider Name:Ned byrnes, 10/29/2025 02:30:00 PM, [address] [place] [address], [address], [phone], Progress Notes * Carlyle NUNEZB:1970 ( 54 yo F)Acc No.[id number]:06/05/2025 Patient: Cady HITCHCOCK :1970 A ge:54 Y S ex:Female Address:[address] [place] [address] * true * Date: Generated for Printi ng/Faxing/eTransmitting on: 10/23/2024 04:52 PM EST
--- OUTSIDE RECORDS SUMMARY | 2025-06-05 06:34 | XMS_ITS ---
Author Organization Ned Son MD Address [address] [place] [phone] Care Team Providers Care Supervisor Industrial Garment Name Role Phone Ned Son Primary Care Provider REASON FOR VISIT med issue Medications Medication SIG (Take, Route, Frequency, Duration) Notes Start Date End Date Status predniSONE 20 MG 1 tablet with food o r milk Orally Once a day for 7 days 05/31/2025 Active Cyclobenzaprine HCl 10 MG 1 tablet at be dtime as needed Orally Once a day for 10 days 06/05/2025 Active Encounters Encounter Location Date Provider Diagnosis Ned Son MD [address] [place] [phone] 06/05/2025 Ned Son Tendonitis M77.9 Assessments Encounter Date Diagnosis (ICD Code) Assessment Notes Treatment Notes Treatment Clinical Notes Section Notes 06/05/2025 Tendonitis (ICD-10 - M77.9) Plan Of Treatment Medication Medication Name Sig Start Date Stop Date Notes predniSONE 20 MG 1 tablet with food o r milk Orally Once a day for 7 days 05/31/2025 Cyclobenzaprine HCl 10 MG 1 tablet at be dtime as needed Orally Once a day for 10 days 06/05/2025 Next Appt Details Provider Name:Ned byrnes, 10/22/2025 08:00:00 AM, [address] [facility], Suite [facility], [place], [place], [phone], Provider Name:Ned Williamson soniya, 10/29/2025 02:30:00 PM, [address], [address], [place], [place], [phone], Progress Notes * Terry NUNEZ:1970 ( 54 yo F)Acc No.[id number]:06/05/2025 Patient: Cady HITCHCOCK :1970 A ge:54 Y S ex:Female Address: [address], [place] [address] * Refills Continue predniSONE Tablet, 20 MG, Orally, 7 Tablet, 1 tablet with food or milk, Once a day, 7 days Start Cyclobenzaprine HCl Tablet, 10 MG, Orally, 10 Tablet, 1 tablet at bedtime as needed, Once a day, 10 days * true * Date: Generated for Carlyn law/Sivakumar/Dagmaritting on: 10/23/2024 04:52 PM EST
--- OUTSIDE RECORDS SUMMARY | 2025-06-12 09:08 | XMS_ITS ---
Author Organization Ned Son MD Address [address] [place] [phone] Care Team Providers Care Sample Worker Name Role Phone Ned Son Primary Care Provider REASON FOR VISIT Prednisone Medications Medication SIG (Take, Route, Fr equency, Duration) Notes Start Date End Date Status predniSONE 20 MG 1 tablet with food o r milk Orally Once a day for 7 days 05/31/2025 Active Encounters Encounter Location Date Provider Diagnosis Ned Son MD 10 [facility] [address] [place] [phone] 06/12/2025 Ned Son Tendonitis M77.9 Assessments Encounter Date Diagnosis (ICD Code) Assessment Notes Treatment Notes Treatment Clinical Notes Section Notes 06/12/2025 Tendonitis (ICD-10 - M77.9) Plan Of Treatment Medication Medication Name Sig Start Date Stop Date Notes predniSONE 20 MG 1 tablet with food o r milk Orally Once a day for 7 days 05/31/2025 Next Appt Details Provider Name:Ned byrnes, 10/22/2025 08:00:00 AM, [address] [place] [address], [address], [phone], Provider Name:Ned byrnes, 10/29/2025 02:30:00 PM, [address] [place] [address], [address], [phone], Progress Notes * Terry NUNEZ:1970 ( 54 yo F)Acc No.[id number]:06/12/2025 Patient: Cady HITCHCOCK :1970 A ge:54 Y S ex:Female Address: [address], [place] [address] * Refills Refill predniSONE Tablet, 20 MG, Orally, 7 Tablet, 1 tablet with food or milk, Once a day, 7 days * true * Date: Generated for Carlyn law/Sivakumar/Ivysmitting on: 10/23/2024 04:51 PM EST
--- NOTE | 2025-08-23 14:09 | EMG_ITS ---
Chief complaint: Incident of right hand pain and swelling in May 2025 Reason for referral: Evaluate for Carpal Tunnel Syndrome Referred by: Philip SHANE Procedure done: Right upper extremity NCS/EMG Precautions and/or limitations: None The limb temperature was monitored continuously and remained between 32-36 degrees C during the performance of the NCS. Nerve Conduction Studies Anti Sensory Summary Table ?Stim Site NR Onset (ms) Norm Onset (ms) Peak (ms) Norm Peak (ms) O-P Amp (?V) Norm O-P Amp Site1 Site2 Delta-0 (ms) Dist (cm) Gurinder (m/s) Norm Gurinder (m/s) Right Median Anti Sensory (2nd Digit) Wrist NR <3.6 >10 Wrist 2nd Digit 14.0 Right Radial Anti Sensory (Thumb) Forearm ? 1.7 2.2 <3.1 19.8 Forearm Thumb 1.7 0.0 Right Ulnar Anti Sensory (5th Digit) Wrist ? 2.4 3.0 <3.7 22.2 >15.0 Wrist 5th Digit 2.4 14.0 58 Motor Summary Table ?Stim Site NR Onset (ms) Norm Onset (ms) O-P Amp (mV) Norm O-P Amp iAmp (mV) Amp (1st) (%) Site1 Site2 Delta-0 (ms) Dist (cm) Gurinder (m/s) Norm Gurinder (m/s) Right Median Motor (Abd Poll Brev) Wrist ? 8.0 <3.9 3.5 >4.5 4.2 100.0 Elbow Wrist 4.2 17.5 42 >45 Elbow ? 12.2 3.5 4.2 100.0 Right Ulnar Motor (Abd Dig Minimi) Wrist ? 2.5 <3.0 7.9 >5 9.6 100.0 B Elbow Wrist 2.9 17.0 59 >45 B Elbow ? 5.4 8.0 9.8 101.3 A Elbow B Elbow 1.2 10.0 83 >45 A Elbow ? 6.6 8.0 9.8 101.3 EMG ?Side Muscle Nerve Root Ins Act Fibs Psw Amp Dur Poly Recrt Int Pat Comment Right 1stDorInt Ulnar C8-T1 Nml Nml Nml Nml Nml 0 Nml Complete Right FlexCarRad Median C6-7 Nml Nml Nml Nml Nml 0 Nml Complete Right Biceps Musculocut C5-6 Nml Nml Nml Nml Nml 0 Nml Complete Right Triceps Radial C6-7-8 Nml Nml Nml Nml Nml 0 Nml Complete Right Deltoid Axillary C5-6 Nml Nml Nml Nml Nml 0 Nml Complete FINDINGS: Right median motor nerve showed prolonged distal latency, normal amplitude and slow conduction velocity. Right median sensory nerve showed absent response. All other nerves tested were within normal. Concentric needle EMG was performed in selected muscles of the right upper extremity. Study did not reveal signs of electric abnormalities as shown in the table above. IMPRESSION: 1. This is an abnormal study. 2. There is electrodiagnostic evidence for right moderate-severe median neuropathy at the wrist, consistent with carpal tunnel syndrome. 3. There is no electrodiagnostic evidence for ulnar neuropathy, brachial plexopathy, or cervical radiculopathy. Thank you for your kind referral. Maria D Hollins MD, JODI Board Certified, [place] [employer] and Rehabilitation (ABPMR) Board Certified, [place] Board of Electrodiagnostic Medicine (ABEM) [place] [id number] [facility]
--- OUTSIDE RECORDS SUMMARY | 2025-08-23 16:52 | XMS_ITS | Patient Health Record ---
Author Organization Ned Son MD Address [address] [place], [place] [id number] Care Team Providers Care Wheelchair Driver Name Role Phone Ned Son Primary Care Provider [phone] Allergies Allergen (clinical drug ingredient) Drug/Non Drug Allergy documented on EMR Reaction Allergy Type Onset Date Status Codeine Phosphate vomiting Drug Allergy Active Results Component Value Reference Range Notes Hemoglobin A1c Reviewed date:04/30/2025 03:22:27 PM Interpretation: Performing Lab: Notes/Report: Hemoglobin A1c 7.1 Complete Blood Count Auto Di ff Reviewed date:10/20/2024 12:28:17 PM Interpretation: Performing Lab:[facility], [address] [place] [phone] Notes/Report: White Blood Count 7.1 4.8-10.8 X10*3/uL [...] NRBC Abs Auto 0.000 0.0-0.012 X10*3/uL Comprehensive [employer]. Panel Fa st Reviewed date:10/20/2024 12:47:33 PM Interpretation: Performing Lab:[facility], [address] [place] [phone] Notes/Report: Sodium 138 135-145 mmol/L Potassium 4.2 [...] Panel Reviewed date:10/20/2024 12:47:17 PM Interpretation: Performing Lab:[facility], [address] [place] [phone] Notes/Report: Triglycerides 83 <150 mg/dL Slight Lipemia. [...] Random Reviewed date:10/20/2024 12:19:30 PM Interpretation: Performing Lab:[facility], [address] [place] [phone] Notes/Report: Creatinine Urine 47.42 Microalbumin Urine 20.0 Microalbum/Creatinine Ratio Ur 42.1 <30 ug/mg cr Albumin/Creatinine Ratio Reference Ranges: Normal: < 30 ug/mg creatinine Microalbuminuria: 30 - 300 ug/mg creatinine Clinical Albuminuria: > 300 ug/mg creatinine Hemoglobin A1c Reviewed date:10/20/2024 12:20:05 PM Interpretation: Performing Lab:[facility], [address] [place] [phone] Notes/Report: Hemoglobin A1c % 6.3 <6.0 % [...] average glucose, using the formula of the R2L-Rzkovlp Average Glucose study (ADAG), Diabetes Care, Vol.31,#8, 2007 UA ClnCatch+Micro w/rflx Cul t Reviewed date:10/20/2024 12:31:15 PM Interpretation: Performing Lab:[address] [address] Notes/Report: Urine, Clean Catch Color Urine Yellow Appearance Urine Clear PH 7.0 5.0-9.0 Glucose Urine UA Negative Negative mg/dL Urine Blood Negative Negative Specific [place] - Urine 1.015 1.005-1.025 Urine Protein Negative [...] Culture Reviewed date:10/22/2024 06:22:24 PM Interpretation: Performing Lab:[address] [address] Notes/Report: Urine Culture Report Result Urine Culture > 100,000 cfu/ml Urine Culture Mixed bacterial veronica a characteristic of Urine Culture urogenital contamination. T Spot TB Reviewed date:05/07/2025 07:28:01 PM Interpretation: Performing Lab:[address] [address] Notes/Report: TSpotTB Negative Negative A negative test [...] Passed For additional information, please refer to http://education.Kitchenbug/faq/FA Q215 (This link is being provided for informational/ educational purposes only.) THIS TEST WAS PERFORMED AT: [facility]/[address] [address] PANKAJ SUMMERS MD,PHD XR hand RT min 3V Reviewed date:06/01/2025 04:10:42 PM Interpretation: Performing Lab: Notes/Report: [address] [address] XRay Report Signed Patient: Cady Hernandez MR#: [id number] 8 : 1970 Acct:[id number] Age/Sex: 54 / F ADM Date: 06/01/25 Loc: HO.ED Attending Dr: Ordering Physician: Libia Daley NP Date of Service: 06/01/25 Procedure(s): XR hand RT min 3V Accession Number(s): [id number] cc: Ned Son MD; Libia Daley NP [...] 06/01/25 1556 DD/ 1436 TD/TT: 06/01/25 1539 Orthotist Prosthetist: [address] [address] XRay Report Signed Patient: Cady Hernandez MR#: [id number] 8 : 1970 Acct:[id number] Age/Sex: 54 / F ADM Date: 06/01/25 Loc: HO.ED Attending Dr: Ordering Physician: Libia Daley NP Date of Service: 06/01/25 Procedure(s): XR garcias d RT min 3V Accession Number(s): [id number] cc: Ned Son MD; Libia Daley NP [...] 06/01/25 1556 DD/ 1436 TD/TT: 06/01/25 1539 Orthotist Prosthetist: XR wrist RT min 3V Reviewed date:06/01/2025 04:19:07 PM Interpretation: Performing Lab: Notes/Report: [address] [address] XRay Report Signed Patient: Cady Hernandez MR#: [id number] [birth year] : 1970 Acct:[id number] Age/Sex: 54 / F ADM Date: 06/01/25 Loc: HO.ED Attending Dr: Ordering Physician: Libia Daley NP Date of Service: 06/01/25 Procedure(s): XR wrist RT min 3V Accession Number(s): [id number] cc: Ned Son MD; Libia Daley NP [...] 06/01/25 1555 DD/ 1437 TD/TT: 06/01/25 1539 Orthotist Prosthetist: [place] [address] XRay Report Signed Patient: Cady Hernandez MR#: [id number] 8 : 1970 Acct:[id number] Age/Sex: 54 / F ADM Date: 06/01/25 Loc: HO.ED Attending Dr: Ordering Physician: Libia Daley NP Date of Service: 06/01/25 Procedure(s): XR wri st RT min 3V Accession Number(s): [id number] cc: Ned Son MD; Libia Daley NP [...] 06/01/25 1555 DD/ 1437 TD/TT: 06/01/25 1539 Orthotist Prosthetist: MM tomosynthesis screening B I Reviewed date:08/14/2025 12:51:32 PM Interpretation: Performing Lab: Notes/Report: [facility]'[address] [place] [address] Mammography Report Signed Patient: Cady Hernandez MR#: [id number] 8 : 1970 Acct:[id number] Age/Sex: 54 / F ADM Date: 08/10/25 Loc: HO.MAMMO Attending Dr: Ned Son MD Ordering Physician: Ned Son MD Results: 2Be nign Date of Service: 08/10/25 Follow Up: 1 Year From [facility] Mammogram Procedure(s): MM tomosynthesis screening BI Accession Number(s): [id number] cc: Ned Son MD Reason For Exam: SCREENING EXAMINATION: MM SCREENING DIGITAL BREAST TOMOSYNTHESIS, BILATERAL CLINICAL INFORMATION: Screening. Asymptomatic. COMPARISON: Mammography: Comparison is made with available priors TECHNIQUE: Digital breast mammography with tomosynthesis is performed in both the craniocaudal and mediolateral oblique views along with computer-aided detection (CAD). FINDINGS: The breasts are heterogeneously dense, which may obscure small masses. Left marker clip. Bilateral scattered asymmetries are stable. There are no significant masses, abnormal calcifications, or other abnormalities. MM/MM tomosynthesis screening BI IMPRESSION: No mammographic evidence of malignancy. ASSESSMENT: BI-RADS Category 2: Benign RECOMMENDATION: Routine annual mammography screening. 1 year F/U This examination should not preclude the clinical evaluation of a suspicious palpable abnormality. This patient's information was entered into a reminder system with a target due date for their next mammogram. Electronically signed by: Susy Love DO 08/13/2025 04:56 PM EDT RP Dictated By: Susy Love DO Signed By: <Electronically signed by Susy Love DO in OV> 08/13/25 1656 DD/ 0940 TD/TT: 08/10/25 1000 Orthotist Prosthetist: [facility] [address] [place] [address] Mammography Report Signed Patient: Cady Hernandez MR#: [id number] 8 : 1970 Acct:[id number] Age/Sex: 54 / F ADM Date: 08/10/25 Loc: HO.MAMMO Attending Dr: Ned Son MD Ordering Physician: Nde Son MD Results: 2Be nign Date of Service: 08/10/25 Follow Up: 1 Year From Orig ina Mammogram Procedure(s): MM tomosynthesis screening BI Accession Number(s): [id number] cc: Ned Son MD Reason For Exam: SCREENING EXAMINATION: MM SCREENING DIGITAL BREAST TOMOSYNTHESIS, BILATERAL CLINICAL INFORMATION: Screening. Asymptomatic. COMPARISON: Mammography: Compari son is made with available priors TECHNIQUE: Digital breast mammography with tomosynthesis is performed in both the craniocaudal and mediolateral oblique views along with computer-aided detection (CAD). FINDINGS: The breasts are heterogeneously dense, which may obscure small masses. Left marker clip. Bilateral scattered asymmetries are stable. There are no significant masses, abnormal calcifications, or other abnormalities. MM/MM tomosynthesis screening BI IMPRESSION: No mammographic evidence of malignancy. ASSESSMENT: BI-RADS Category 2: Benign RECOMMENDATION: Routine annual mammography screening. 1 year F/U This examination rashida uld not preclude the clinical evaluation of a suspicious palpable abnormality. This patient's information was entered into a reminder system with a target due date for their next mammogram. Electronically dionte d by: Susy Love DO 08/13/2025 04:56 PM EDT RP Dictated By: Susy Love DO Signed By: <Electronically signed by Susy Love DO in OV> 08/13/25 1656 DD/ 0940 TD/TT: 08/10/25 1000 Orthotist Prosthetist: Reason For Referral Reason right hand pain [...] Problem Status W/U Status Risk Notes Problem 74963954 Lymphocytosis (D72.820) Active confirmed Problem 200275218 Tubular adenoma (D36.9) Active confirmed Problem 795313848 Diverticulitis (K57.92) Active confirmed Problem 5289179 Diverticulitis o f large intestine without perforation or abscess without bleeding (K57.32) Active confirmed Problem 0054703 Arthritis (M19.90) Active confirmed Problem 27113065 Intrinsic eczema (L20.84) Active confirmed Problem 95451492 Eczema, unspecif ied type (L30.9) Active confirmed Problem 290980759 Leukocytosis, unspecified type (D72.829) Active confirmed Problem 07993096 Dysthymia (F34.1) Active confirmed Problem 301499811 Vaginal bleeding (N93.9) Active confirmed Problem 900424937 Abnormal mammogr am of right breast (R92.8) Active confirmed Problem 09528905 Peptic ulcer disease (K27.9) Active confirmed Problem 022082911 Type 2 diabetes mellitus without complication, without long-term current use of insulin (E11.9) Active confirmed Problem 635698765 Mild intermitten t asthmatic bronchitis with acute exacerbation (J45.21) Active confirmed Vital Signs Blood pressure diastolic 84 mm Hg 05/31/2025 Height 62.5 in 05/31/2025 Blood pressure systolic 122 mm Hg 05/31/2025 Weight 182 lbs 05/31/2025 BMI 32.75 kg/m2 05/31/2025 Encounters Encounter Location Date Provider Diagnosis Ned Son MD [address] [place] [id number] 10/20/2024 Ned Son Blood tests for routine general physical examination Z00.00 ; Leukocytosis, unspecified type D72.829 and Type 2 diabetes mellitus without complication, without long-term current use of insulin E11.9 Ned Son MD [address] [place] [id number] 10/24/2024 Ned Son Type 2 diabetes mellitus without complication, without long-term current use of insulin E11.9 ; Mild intermittent asthmatic bronchitis with acute exacerbation J45.21 ; Arthritis M19.90 and Depression screening Z13.31 Ned Son MD [address] [place] [id number] 04/30/2025 Ned Son Type 2 diabetes mellitus without complication, without long-term current use of insulin E11.9 Ned Son MD [address] [id number] 05/31/2025 Ned Son Type 2 diabetes mellitus without complication, without long-term current use of insulin E11.9 and Tendonitis M77.9 Ned Son MD [address] [place] [id number] 06/01/2025 Ned Son MD [address] [place] [id number] 06/04/2025 Ned Son MD [address] [place] [id number] 06/05/2025 Ned Son MD [address] [place] [address] [id number] 06/05/2025 Ned Son Tendonitis M77.9 Ned Son MD [address] [place] [id number] 06/12/2025 Ned Bombardier Tendonitis M77.9 Assessments Encounter Date Diagnosis (ICD [...] Details Provider Name:Ned byrnes, 10/22/2025 08:00:00 AM, [address] [place] [address], [address], [place], [place], [id number], Provider Name:Ned Williamson ier, 10/29/2025 02:30:00 PM, [address], [address], [place], [place], [id number], Insurance Providers Payer Name Payer Address Payer Phone Subscriber Number Group Number Insured Name Patient Relationship to Insured Coverage Start Date Coverage End Date [employer] [address] [place], [place] [phone] [id number] Cady Hernandez Self - patient is the insured [address] [address] [phone] [id number] Cady Hernandez Self - patient is the insured Medical (General) History Medical History History ICD Code Colonoscopy with Dr Bai repeat in 5 years (2023)04/28/24 repeat 10 years
--- OUTSIDE RECORDS SUMMARY | 2025-08-23 16:53 | XMS_ITS | Patient Health Record ---
Author Organization [facility] Address [address] [place] [address] Care Team Providers Care [employer] Glazer Name Role Phone Ned Son MD Primary Care Provider Constantin Andres Jr Unavailable Allergies Allergen (clinical drug ingredient) Drug/Non Drug Allergy documented on EMR Reaction Allergy Type Onset Date Status codeine Codeine Unknown Drug Allergy Active Reason For Referral No Information Medications Medication SIG (Take, Route, Frequency, Duration) Notes Start Date End Date Status metFORMIN HCl 500 MG TAKE 1 TABLET BY [facility] TWICE A DAY WITH A MEAL FOR [...] Problem Status W/U Status Risk Notes Problem Colon cancer screening (375991736) Colon cancer screening (Z12.11) Active confirmed Problem History of polyp of colon (situation) (826087467) Personal history of colonic polyps (Z86.010) Active confirmed Problem Pre-procedure evaluation check (124194589) Encounter for other preprocedural examination (Z01.818) Active confirmed Problem Long-term current use of drug therapy (051914333) Long-term current use of high risk medication other than anticoagulant (Z79.899) Active confirmed Plan Of Treatment Future Test Test Name Order Date COLONOSCOPY 03/16/2024 Insurance Providers Payer Name Payer Address Payer Phone Subscriber Number Group Number Insured Name Patient Relationship to Insured Coverage Start Date Coverage End Date [facility] [address] [place] [address] [phone] [id number] AARON NUNEZ Self - patient is the insured MEDICAID OF [facility] [address] [place] [address] [phone] [id number] AARON NUNEZ Self - patient is the insured Medical (General) History Medical History History ICD Code Diabetes mellitus Colonoscopy 06/05, tubular adenoma, five- year followup Surgical History Surgery Date(Month/Year) Tubal ligation 2008 Uterine ablation 2014
== END 2025-08-23 13:51 | disposition home or self-care (01) ==
LOC: HO.NEURO 13:50
PROVIDERS: PCP Internal Medicine
DX: R20.0 Anesthesia of skin (principal); R20.2 Paresthesia of skin; M79.641 Pain in right hand; M79.89 Other specified soft tissue disorders
CPT/HCPCS: 95886; 95909

== ENCOUNTER → 2025-08-23 14:09 | Outpatient (BNV) | payer BC, SELFPAY | PROVIDERS: PCP Internal Medicine; Visit Provider Physical Medicine & Rehabilitation | DX: G56.11 Other lesions of median nerve, right upper limb (principal) | CPT/HCPCS: 95886; 95909 ==

== ENCOUNTER 2025-09-24 11:34 | Outpatient (AMB) | payer BC, SELFPAY ==
[2025-09-24 11:38] VITALS: BMI 32.2
--- NOTE | 2025-09-24 11:38 | A.OFFVIS_ITS ---
Vital Signs 09/24/25 11:38 Height 5 ft 3 in Weight 182 lb BMI 32.2 Intake Visit Reasons: OV-R hand EMG review Intake Note: Cady is a 54 year old right hand dominant female who presents today for Follow Up of her Right Index Finger Flexor Tendon Strain, DOI: 05/31/25. At her last visit an EMG was ordered to assess ongoing numbness and tingling. Patient complains of daily and intermittent right thumb and index finger numbness and tingling. She explains it is triggered by certain things like carrying or lifting items, waking her up through the night. She has tried using a Velcro wrist brace without relief. 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 She has a history of Type 2 Diabestes Mellitus. Last A1C on file done 10/20/24, 6.3%. IMPRESSION 08/23/25: 1. This is an abnormal study. 2. There is electrodiagnostic evidence for right moderate-severe median neuropathy at the wrist, consistent with carpal tunnel syndrome. 3. There is no electrodiagnostic evidence for ulnar neuropathy, brachial plexopathy, or cervical radiculopathy. Allergies codeine (Codeine) Adverse Reaction (Unknown, Verified 09/24/25 11:40) Nausea and Vomiting HPI HPI OV-R hand EMG review: Details: Cady is a 54 year old right hand dominant female who presents today for Follow Up of her Right Index Finger Flexor Tendon Strain, DOI: 05/31/25. At her last visit an EMG was ordered to assess ongoing numbness and tingling. Patient complains of daily and intermittent right thumb and index finger numbness and tingling. She explains it is triggered by certain things like carrying or lifting items, waking her up through the night. She has tried using a Velcro wrist brace without relief. 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 She has a history of Type 2 Diabestes Mellitus. Last A1C on file done 10/20/24, 6.3%. No other acute complaints or concerns at this time IMPRESSION 08/23/25: 1. This is an abnormal study. 2. There is electrodiagnostic evidence for right moderate-severe median neuropathy at the wrist, consistent with carpal tunnel syndrome. 3. There is no electrodiagnostic evidence for ulnar neuropathy, brachial plexopathy, or cervical radiculopathy. [facility] Medical History Diabetes Surgical History History of endometrial ablation Hx of tubal ligation H/O colonoscopy Social History (Updated 06/20/25 @ 09:57 by JOSE Lui) Household Members: Spouse Patient Tobacco Use Status: Former Tobacco user Current occupational status: employed Current occupation: right handed Review of Systems Const All systems reviewed & are unremarkable except as noted in HPI and below Physical Exam Vital Signs: BMI result Body Mass Index 32.2 Extrem Other: Patient is alert, oriented, and in no acute distress. Neuro: Normal sensation of the tips of all digits of the right hand at this time Vascular: Cap refill brisk Pain: Mild tenderness to palpation of the 1st webspace of the right hand Very mild tenderness to palpation of the right index finger ROM: Patient is able to make a closed fist with encouragement, can extend all digits of the right hand without difficulty Skin: No lacerations or abrasions. General: No ecchymosis, erythema, or evidence of infection. Psych: Appears grossly normal Affect normal Attitude cooperative Assessment & Plan Assessment & Plan (1) Right carpal tunnel syndrome: Code(s): G56.01 - Carpal tunnel syndrome, right upper limb Category: Medical Plan 1. Right carpal tunnel syndrome Symptoms intermittent, daily, worse at night I educated the patient about the condition. I discussed both operative and nonoperative treatment options. The patient would like to proceed with surgery. The risks and benefits of operative treatment were discussed with the patient and the patient wishes to proceed with surgery. These risks include, but are not limited to, risk of damage to blood vessels, nerves, tendons, infection, recurrence, incomplete relief of preoperative symptoms, persistent pain, possible need for further surgery, and the risks associated with regional blocks and/or anesthesia. Plan is to take the patient to the operating room at some point in the next few weeks for the following procedures: 1. Right carpal tunnel release under local anesthesia All of the preoperative paperwork including the consent was discussed today. All of the patient's questions were answered in the clinic today. The patient understands that they will be in contact with our operating room surgical technologist to discuss scheduling their procedure. Patient reports diabetes, last A1c 6.3 Denies blood thinners, asthma, heart issues, lung issues, kidney issues, or current smoking. Coding Level of Care Code Est Pt Level 4 (43058) Diagnoses Right carpal tunnel syndrome G56.01
== END 2025-09-24 12:01 | disposition home or self-care (01) ==
LOC: HO.HOS 11:35
PROVIDERS: PCP Internal Medicine
DX: G56.01 Carpal tunnel syndrome, right upper limb (principal)
CPT/HCPCS: 99214